=== PATIENT | female | born 1970 | race Two or more races ===

== ENCOUNTER 2018-01-28 12:45 | Emergency (ER) | payer MEDICAID ==
[~2018-01-28] VITALS: Ht 144.8 cm; Wt 70.3 kg
[2018-01-28] MEDS ORDERED: ALBUTEROL SULF 2.5 MG/0.5ML(0.5%) NEB SOLN NEB ONE (13:30)
[2018-01-28] MEDS ORDERED: IPRATROPIUM BROM 0.5 MG/2.5ML INH SOL NEB ONE (13:30)
[2018-01-28 13:31] LABS: Basophils # (auto) 0 uL; Basophils % (auto) 0.3 % (0.0-2.0); Eosinophils # (auto) 0.6 uL; Eosinophils % (auto) 7.2 % (0.0-7.0); Hematocrit 49.7 % (36.0-46.0); Hemoglobin 16.5 g/dL (12.2-16.2); Lymphocytes # (auto) 1.6 uL; Lymphocytes % (auto) 20.1 % (10.0-50.0); Mean Corpuscular Hemoglobin 30.2 pg (28.0-32.0); Mean Corpuscular Hgb Conc. 33.2 g/dL (32.0-36.0); Monocytes # (auto) 0.7 uL; Monocytes % (auto) 8.4 % (0.0-12.0); Neutrophils # (auto) 4.9 uL; Nucleated Red Blood Cells % 0.1 %; Platelet Count (auto) 309 10^3/uL (140-450); Red Blood Cells 5.47 10^6/uL (4.0-5.20); Red Cell Distribution Width 13.5 % (11.8-14.3); White Blood Cell 7.7 10^3/uL (4.4-10.8)
[2018-01-28 13:42] LABS: Urine Bacteria NONE SEEN /hpf (None Seen); Urine Blood TRACE /uL (Negative); Urine Mucus FEW (None Seen); Urine Specific Gravity 1.025 (1.001-1.035); Urine WBC 1 /hpf (0 - 5)
[2018-01-28 14:07] LABS: Albumin 3.6 g/dL (3.4-5.0); Anion Gap 5 (5-15); BUN/Creatinine Ratio 26.3; Blood Urea Nitrogen 21 mg/dL (7-18); Calcium 8.3 mg/dL (8.5-10.1); Carbon Dioxide 26 mmol/L (21-32); Chloride 107 mmol/L (98-107); GFR African American 99 mL/min; GFR Non-African American 82 mL/min; Glucose 91 mg/dL (74-106); Potassium 4.4 mmol/L (3.5-5.1); Sodium 138 mmol/L (136-145)
[2018-01-28 14:12] LABS: Alanine Aminotransferase 28 U/L (13-56); Alkaline Phosphatase 49 U/L (45-117); Aspartate Aminotransferase 27 U/L (15-37); Bilirubin, Total 0.4 mg/dL (0.2-1.0); Total Protein 8.2 g/dL (6.4-8.2)
[2018-01-28 16:12] VITALS: BP 146/94
== END 2018-01-28 16:20 | disposition home or self-care (01) ==
LOC: ER 12:45
DX: J45.909 Unspecified asthma, uncomplicated (principal); I27.20 Pulmonary hypertension, unspecified; M06.9 Rheumatoid arthritis, unspecified
CPT/HCPCS: 36415; 71046; 80053; 81001; 84484; 85025; 93005; 94640; 94761; 99285; J7611; J7644

== ENCOUNTER 2018-02-20 10:40 | Emergency (ER) | payer MEDICAID ==
[~2018-02-20] VITALS: Ht 144.8 cm; Wt 68.0 kg
[2018-02-20] MEDS ORDERED: IPRATROPIUM BROM 0.5 MG/2.5ML INH SOL NEB ONE (11:00)
[2018-02-20] MEDS ORDERED: ALBUTEROL SULF 2.5 MG/0.5ML(0.5%) NEB SOLN NEB ONE ×2 (11:00→16:30)
[2018-02-20 11:27] LABS: Basophils # (auto) 0 uL; Basophils % (auto) 0.6 % (0.0-2.0); Eosinophils # (auto) 0.6 uL; Eosinophils % (auto) 8.9 % (0.0-7.0); Hematocrit 47.1 % (36.0-46.0); Hemoglobin 15.5 g/dL (12.2-16.2); Lymphocytes % (auto) 15.9 % (10.0-50.0); Mean Corpuscular Hemoglobin 29.5 pg (28.0-32.0); Mean Corpuscular Hgb Conc. 32.8 g/dL (32.0-36.0); Mean Corpuscular Volume 89.7 fL (80.0-100.0); Monocytes # (auto) 0.6 uL; Monocytes % (auto) 9.1 % (0.0-12.0); Neutrophils # (auto) 4.1 uL; Neutrophils % (auto) 65.5 % (37.0-80.0); Nucleated Red Blood Cells % 0.1 %; Platelet Count (auto) 220 10^3/uL (140-450); Red Blood Cells 5.25 10^6/uL (4.0-5.20); Red Cell Distribution Width 13.4 % (11.8-14.3); White Blood Cell 6.3 10^3/uL (4.4-10.8)
[2018-02-20 11:46] LABS: Alanine Aminotransferase 29 U/L (13-56); Albumin 3.6 g/dL (3.4-5.0); Anion Gap 5 (5-15); Aspartate Aminotransferase 19 U/L (15-37); Blood Urea Nitrogen 13 mg/dL (7-18); Calcium 8.6 mg/dL (8.5-10.1); Carbon Dioxide 24 mmol/L (21-32); Chloride 107 mmol/L (98-107); Glucose 96 mg/dL (74-106); Potassium 4.3 mmol/L (3.5-5.1); Sodium 136 mmol/L (136-145)
[2018-02-20 11:51] LABS: Alkaline Phosphatase 42 U/L (45-117); Bilirubin, Total 0.7 mg/dL (0.2-1.0); GFR African American 126 mL/min; GFR Non-African American 104 mL/min; Total Protein 7.5 g/dL (6.4-8.2)
[2018-02-20 11:55] LABS: Urine Bacteria FEW /hpf (None Seen); Urine Blood Negative /uL (Negative); Urine Specific Gravity 1.012 (1.001-1.035); Urine WBC 1 /hpf (0 - 5)
[2018-02-20] MEDS ORDERED: methylPREDNISolone SOD SUCC 125 MG/2 ML VL IV ONE (16:30)
[2018-02-20] MEDS ORDERED: LEVOFLOXACIN 500MG 100 ML IV ONE (16:30)
[2018-02-20 17:45] VITALS: BP 130/69
== END 2018-02-20 18:15 | disposition home or self-care (01) ==
LOC: ER 10:40
DX: I27.20 Pulmonary hypertension, unspecified (principal); M19.90 Unspecified osteoarthritis, unspecified site
CPT/HCPCS: 36415; 71045; 80053; 81001; 84484; 85025; 94640; 96365; 96366; 96375; 99284; J1956; J2930; J7611; J7644

== ENCOUNTER 2018-04-30 10:05 | Emergency (ER) | payer MEDICAID ==
[~2018-04-30] VITALS: Ht 144.8 cm; Wt 68.9 kg
[2018-04-30 10:17] VITALS: BP 146/78
[2018-04-30 11:47] LABS: Basophils # (auto) 0 uL; Basophils % (auto) 0.4 % (0.0-2.0); Eosinophils # (auto) 0.5 uL; Eosinophils % (auto) 5.3 % (0.0-7.0); Hematocrit 47.4 % (36.0-46.0); Hemoglobin 15.7 g/dL (12.2-16.2); Lymphocytes # (auto) 1.3 uL; Lymphocytes % (auto) 13.8 % (10.0-50.0); Mean Corpuscular Hemoglobin 29.9 pg (28.0-32.0); Mean Corpuscular Hgb Conc. 33.2 g/dL (32.0-36.0); Monocytes # (auto) 0.7 uL; Monocytes % (auto) 7.9 % (0.0-12.0); Neutrophils # (auto) 6.6 uL; Neutrophils % (auto) 72.6 % (37.0-80.0); Nucleated Red Blood Cells % 0.1 %; Platelet Count (auto) 226 10^3/uL (140-450); Red Blood Cells 5.27 10^6/uL (4.0-5.20); Red Cell Distribution Width 13.9 % (11.8-14.3)
[2018-04-30 12:12] LABS: Chloride 106 mmol/L (98-107); Potassium 3.8 mmol/L (3.5-5.1); Sodium 138 mmol/L (136-145)
[2018-04-30 12:21] LABS: Alanine Aminotransferase 44 U/L (13-56); Alkaline Phosphatase 43 U/L (45-117); Anion Gap 6 (5-15); Aspartate Aminotransferase 25 U/L (15-37); BUN/Creatinine Ratio 15.4; Bilirubin, Total 0.9 mg/dL (0.2-1.0); Blood Urea Nitrogen 12 mg/dL (7-18); Calcium 9.2 mg/dL (8.5-10.1); Carbon Dioxide 26 mmol/L (21-32); GFR African American 101 mL/min; GFR Non-African American 84 mL/min; Glucose 96 mg/dL (74-106)
== END 2018-04-30 21:00 | disposition home or self-care (01) ==
LOC: ER 10:05
DX: R07.89 Other chest pain (principal); R20.0 Anesthesia of skin; M19.90 Unspecified osteoarthritis, unspecified site; I10 Essential (primary) hypertension; Z88.8 Allergy status to other drugs, medicaments and biological substances
CPT/HCPCS: 36415; 71046; 80053; 84484; 85025; 93005

== ENCOUNTER 2022-04-02 12:27 | Inpatient (IN) | payer MEDICAID ==
[~2022-04-02] VITALS: Ht 144.8 cm; Wt 56.9 kg
[2022-04-02] MEDS ORDERED: ASPirin 325 MG TAB PO ONE (13:00)
[2022-04-02 13:09] LABS: Basophils # (auto) 0 10 ^3/uL (0-0.2); Basophils % (auto) 0.4 % (0.0-2.0); Eosinophils # (auto) 0.1 10 ^3/uL (0-0.8); Eosinophils % (auto) 2.5 % (0.0-7.0); Hematocrit 48.5 % (36.0-46.0); Hemoglobin 15.6 g/dL (12.2-16.2); Lymphocytes # (auto) 1.2 10 ^3/uL (0.4-5.4); Lymphocytes % (auto) 20.1 % (10.0-50.0); Mean Corpuscular Hemoglobin 30.2 pg (28.0-32.0); Mean Corpuscular Hgb Conc. 32.1 g/dL (32.0-36.0); Monocytes # (auto) 0.7 10 ^3/uL (0-1.3); Monocytes % (auto) 11.8 % (0.0-12.0); Neutrophils # (auto) 3.9 10 ^3/uL (1.6-8.6); Neutrophils % (auto) 65.2 % (37.0-80.0); Nucleated Red Blood Cells % 0.2 %; Red Blood Cells 5.16 10^6/uL (4.0-5.20); Red Cell Distribution Width 14.7 % (11.8-14.3); White Blood Cell 5.9 10^3/uL (4.4-10.8)
[2022-04-02 13:16] LABS: Albumin 3.5 g/dL (3.4-5.0); Calcium 9.1 mg/dL (8.5-10.1); Potassium 4.6 mmol/L (3.5-5.1)
[2022-04-02 13:19] LABS: BUN/Creatinine Ratio 25.3
[2022-04-02 13:22] LABS: Total Protein 6.7 g/dL (6.4-8.2)
[2022-04-02 15:56] LABS: Urine Bacteria NONE SEEN /hpf (None Seen); Urine Blood 1+ /uL (Negative); Urine Specific Gravity 1.018 (1.001-1.035); Urine WBC 1 /hpf (0 - 5)
[2022-04-02] MEDS ORDERED: ACETAMINOPHEN 325 MG TAB PO PRN (16:15)
[2022-04-02] MEDS ORDERED: DEXTROSE (50%) 50ML SYRG IV PRN (16:15)
[2022-04-02] MEDS ORDERED: DOCUSATE SOD 100 MG CAP PO PRN (16:15)
[2022-04-02] MEDS ORDERED: MORPHINE SULFATE INJ 2 MG/ml SYRG IV PRN ×2 (16:15)
[2022-04-02] MEDS ORDERED: ONDANSETRON HCL 4 MG/2 ML VIAL IV PRN (16:15)
[2022-04-02] MEDS: InsuLIN REG 1unit/0.01ml Soln (100units/ml) SC SCH ×2 (17:00→22:53)
[2022-04-02] MEDS: ACCU-CHEK COMFORT CURVE STRIP VI SCH ×2 (17:19→22:53)
[2022-04-03] MEDS: TEMAZEPAM 15 MG CAP PO PRN ×2 (01:21→19:54)
[2022-04-03 05:04] LABS: Basophils # (auto) 0 10 ^3/uL (0-0.2); Basophils % (auto) 0.4 % (0.0-2.0); Eosinophils # (auto) 0.2 10 ^3/uL (0-0.8); Eosinophils % (auto) 3.2 % (0.0-7.0); Hematocrit 48.7 % (36.0-46.0); Hemoglobin 15.9 g/dL (12.2-16.2); Lymphocytes # (auto) 1.4 10 ^3/uL (0.4-5.4); Lymphocytes % (auto) 24.8 % (10.0-50.0); Mean Corpuscular Hemoglobin 30.4 pg (28.0-32.0); Mean Corpuscular Hgb Conc. 32.6 g/dL (32.0-36.0); Mean Corpuscular Volume 93.2 fL (80.0-100.0); Monocytes # (auto) 0.7 10 ^3/uL (0-1.3); Monocytes % (auto) 11.9 % (0.0-12.0); Neutrophils # (auto) 3.3 10 ^3/uL (1.6-8.6); Neutrophils % (auto) 59.7 % (37.0-80.0); Red Blood Cells 5.23 10^6/uL (4.0-5.20); Red Cell Distribution Width 14.7 % (11.8-14.3); White Blood Cell 5.6 10^3/uL (4.4-10.8)
[2022-04-03 05:18] LABS: Albumin 3.2 g/dL (3.4-5.0); Calcium 9.1 mg/dL (8.5-10.1); Potassium 4.4 mmol/L (3.5-5.1)
[2022-04-03 05:23] LABS: Bilirubin, Total 1.3 mg/dL (0.2-1.0); Total Protein 5.9 g/dL (6.4-8.2)
[2022-04-03] MEDS: InsuLIN REG 1unit/0.01ml Soln (100units/ml) SC SCH ×4 (06:56→22:00)
[2022-04-03] MEDS: ACCU-CHEK COMFORT CURVE STRIP VI SCH ×4 (07:05→22:36)
[2022-04-03] MEDS ORDERED: ENOXAPARIN SOD 40 MG/0.4 ML SYRINGE SC SCH (10:00)
[2022-04-03] MEDS: ENOXAPARIN SOD 60 MG/0.6 ML SYRINGE SC SCH ×2 (10:19→22:37)
[2022-04-03] MEDS: ASPirin 81 mg TAB PO SCH (10:19)
[2022-04-03] MEDS: PANTOPRAZOLE 40 MG TAB PO SCH (10:19)
[2022-04-03 12:44] LABS: Alcohol, Urine < 3.0 mg/dL (0-10); Amphetamine Screen, Urine NEGATIVE (NEGATIVE); Benzodiazephine Screen, Urine NEGATIVE (NEGATIVE); Cannabinoid Screen, Urine NEGATIVE (NEGATIVE); Cocaine Screen, Urine NEGATIVE (NEGATIVE); Opiate Scree,Urine NEGATIVE (NEGATIVE); Phencyclidine Screen, Urine NEGATIVE (NEGATIVE)
[2022-04-03 12:50] LABS: Barbiturate Scree,Urine NEGATIVE (NEGATIVE)
[2022-04-03] MEDS: SILDENAFIL CITRATE 20 MG TAB PO SCH ×2 (14:04→19:54)
[2022-04-03] MEDS ORDERED: HYDR-3682 PO (22:56)
[2022-04-03] MEDS ORDERED: SILD20TA2 PO (22:56)
[2022-04-03] MEDS ORDERED: APIX2.5T PO (22:56)
[2022-04-03] MEDS ORDERED: METF-869 PO (22:56)
[2022-04-03] MEDS ORDERED: DIGO0.12 PO (22:56)
[2022-04-03] MEDS ORDERED: SPIR25TA8 PO (22:56)
[2022-04-03 23:37] VITALS: BP 108/68
[2022-04-04 05:09] VITALS: BP 131/91
[2022-04-04] MEDS: InsuLIN REG 1unit/0.01ml Soln (100units/ml) SC SCH ×4 (06:10→22:00)
[2022-04-04] MEDS: ACCU-CHEK COMFORT CURVE STRIP VI SCH ×4 (06:10→22:00)
[2022-04-04 08:00] VITALS: BP 131/91
[2022-04-04] MEDS: SILDENAFIL CITRATE 20 MG TAB PO SCH ×3 (08:23→21:11)
[2022-04-04] MEDS: ENOXAPARIN SOD 60 MG/0.6 ML SYRINGE SC SCH ×2 (10:00→22:58)
[2022-04-04] MEDS: PANTOPRAZOLE 40 MG TAB PO SCH (10:21)
[2022-04-04] MEDS: ASPirin 81 mg TAB PO SCH (10:21)
[2022-04-04] MEDS: HYDROcodone-ACET 5/325MG TAB PO PRN (10:25)
[2022-04-04 13:00] VITALS: BP 146/87
[2022-04-04 16:14] VITALS: BP 128/80
[2022-04-04 20:00] VITALS: BP 133/80
[2022-04-04 22:00] VITALS: BP 133/80
[2022-04-04] MEDS: TEMAZEPAM 15 MG CAP PO PRN (22:57)
[2022-04-04] MEDS: hydrOXYzine 25 MG TAB or CAP PO SCH (22:57)
[2022-04-05] VITALS (11 sets, daily range): BP systolic 120–142; BP diastolic 66–94
[2022-04-05] MEDS: ACCU-CHEK COMFORT CURVE STRIP VI SCH ×4 (06:26→21:46)
[2022-04-05] MEDS: InsuLIN REG 1unit/0.01ml Soln (100units/ml) SC SCH ×4 (06:26→21:46)
[2022-04-05] MEDS: SILDENAFIL CITRATE 20 MG TAB PO SCH ×3 (08:00→21:40)
[2022-04-05 08:16] LABS: INR 1.24 (0.9-1.15); Partial Thromboplastin Time 31.5 sec (24.6-33.4)
[2022-04-05 08:23] LABS: Calcium 9.4 mg/dL (8.5-10.1); Potassium 4.3 mmol/L (3.5-5.1)
[2022-04-05 08:26] LABS: Albumin 3.3 g/dL (3.4-5.0); BUN/Creatinine Ratio 24.1
[2022-04-05 08:29] LABS: Total Protein 6.7 g/dL (6.4-8.2)
[2022-04-05] MEDS ORDERED: fentaNYL CITRATE 100 MCG/2 ML VL ONE (08:57)
[2022-04-05] MEDS ORDERED: ANGIOMAX 250 MG VIAL IV ONE (08:57)
[2022-04-05] MEDS ORDERED: SODIUM CHL 0.9% 0 ML ONE (08:58)
[2022-04-05] MEDS ORDERED: MIDAZOLAM HCL 2MG/2ML 2ml VIAL (1mg/ml) ONE (08:58)
[2022-04-05] MEDS ORDERED: VERAPAMIL 2.5MG/ML INJ 2ML VIAL IV ONE ×2 (09:00→09:26)
[2022-04-05] MEDS ORDERED: HEPARIN SODIUM (PORCINE) 5000 UNITS/ML 1ML VIAL ONE (09:01)
[2022-04-05] MEDS ORDERED: LIDOCAINE 2%HCL (LOCAL ANESTH.) INJ 20ML MDV ONE (09:02)
[2022-04-05] MEDS ORDERED: IODIXANOL 320MG/ML 100ML BTL IV ONE (09:03)
[2022-04-05] MEDS: ENOXAPARIN SOD 60 MG/0.6 ML SYRINGE SC SCH ×2 (10:00→21:43)
[2022-04-05] MEDS: PANTOPRAZOLE 40 MG TAB PO SCH (10:00)
[2022-04-05] MEDS: ASPirin 81 mg TAB PO SCH (10:00)
[2022-04-05] MEDS: HYDROcodone-ACET 5/325MG TAB PO PRN (17:57)
[2022-04-05] MEDS: hydrOXYzine 25 MG TAB or CAP PO SCH (21:40)
[2022-04-06 05:00] VITALS: BP 127/81
[2022-04-06] MEDS: ACCU-CHEK COMFORT CURVE STRIP VI SCH ×3 (06:00→17:50)
[2022-04-06] MEDS: InsuLIN REG 1unit/0.01ml Soln (100units/ml) SC SCH ×3 (06:00→17:00)
[2022-04-06] MEDS: HYDROcodone-ACET 5/325MG TAB PO PRN (06:05)
[2022-04-06 08:00] VITALS: BP 121/83
[2022-04-06] MEDS: SILDENAFIL CITRATE 20 MG TAB PO SCH ×2 (08:26→14:14)
[2022-04-06] MEDS: PANTOPRAZOLE 40 MG TAB PO SCH (08:27)
[2022-04-06] MEDS: ASPirin 81 mg TAB PO SCH (08:27)
[2022-04-06] MEDS: ENOXAPARIN SOD 60 MG/0.6 ML SYRINGE SC SCH (08:28)
[2022-04-06 12:00] VITALS: BP 123/79
[2022-04-06] MEDS ORDERED: SILD20TA PO (15:30)
[2022-04-06 16:00] VITALS: BP 113/81
== END 2022-04-06 18:20 | disposition home or self-care (01) | DRG 192 ==
LOC: ER 12:27 → TELE-CENTR 16:04 → TELE 21:18 → TELE-CENTR 04-03 22:10
PROVIDERS: ADMIT Nurse Practitioner; ATTEND Nurse Practitioner
PROC: 4A023N8 Measurement of Cardiac Sampling and Pressure, Bilateral, Percutaneous Approach (ICD-10-PCS; principal; 2022-04-05)
PROC: B211YZZ Fluoroscopy of Multiple Coronary Arteries using Other Contrast (ICD-10-PCS; 2022-04-05)
PROC: B215YZZ Fluoroscopy of Left Heart using Other Contrast (ICD-10-PCS; 2022-04-05)
DX: R07.89 Other chest pain (principal); I27.20 Pulmonary hypertension, unspecified; E11.9 Type 2 diabetes mellitus without complications; I10 Essential (primary) hypertension; F15.10 Other stimulant abuse, uncomplicated; M06.9 Rheumatoid arthritis, unspecified; Z20.822 Contact with and (suspected) exposure to COVID-19; J98.11 Atelectasis; Z87.891 Personal history of nicotine dependence; Z91.14 Patient's other noncompliance with medication regimen; Z88.8 Allergy status to other drugs, medicaments and biological substances
CPT/HCPCS: 36415; 71045; 78582; 80053; 80061; 80307; 81001; 82962; 83036; 84484; 85025; 85379; 85610; 85730; 86850; 86900; 86901; 87081; 87426; 93005; 93306; 93460; 93970; 99152; 99153; C1751; G0378; J1815; J2250; Q9967

== ENCOUNTER 2022-05-03 17:30 | Emergency (ER) | payer MEDICAID ==
[~2022-05-03] VITALS: Ht 144.8 cm; Wt 58.2 kg
[~2022-05-03 17:30] MED LIST: APIX2.5T PO; METF-869 PO; SILD20TA PO; SPIR25TA8 PO
[2022-05-03] MEDS ORDERED: ACE3T PO (19:52)
[2022-05-03] MEDS ORDERED: DexAMETHasone SOD PHOS 10MG/1ML VIAL INJ IM ONE (20:00)
[2022-05-03] MEDS ORDERED: diphenhdrAMINE HCL 50 MG/1 ML VL IM ONE (20:00)
[2022-05-03 21:04] VITALS: BP 128/66
== END 2022-05-03 21:06 | disposition home or self-care (01) ==
LOC: ER 17:30
DX: T50.995A Adverse effect of other drugs, medicaments and biological substances, initial encounter (principal); Z88.8 Allergy status to other drugs, medicaments and biological substances; Z79.899 Other long term (current) drug therapy; Y92.89 Other specified places as the place of occurrence of the external cause
CPT/HCPCS: 96372; 99284; J1100; J1200

== ENCOUNTER 2023-05-10 17:28 | Emergency (ER) | payer MEDICAID ==
[~2023-05-10] VITALS: Ht 144.8 cm; Wt 58.8 kg
[~2023-05-10 17:28] MED LIST changes: +ACE3T PO; +CEPH500C PO; +METH4PAK PO; +TRIA0.02 TOP
[2023-05-10] MEDS: IPRATROPIUM BROM 0.5 MG/2.5ML INH SOL HHN ONE (18:33)
[2023-05-10] MEDS: ALBUTEROL SULF 2.5 MG/0.5ML(0.5%) NEB SOLN HHN ONE (18:33)
[2023-05-10 19:19] LABS: Basophils # (auto) 0 10 ^3/uL (0-0.2); Basophils % (auto) 0.2 % (0.0-2.0); Eosinophils # (auto) 0.1 10 ^3/uL (0-0.8); Eosinophils % (auto) 1.9 % (0.0-7.0); Hematocrit 50.8 % (36.0-46.0); Hemoglobin 16.9 g/dL (12.2-16.2); Lymphocytes # (auto) 2.3 10 ^3/uL (0.4-5.4); Lymphocytes % (auto) 29.7 % (10.0-50.0); Mean Corpuscular Hemoglobin 31.7 pg (28.0-32.0); Mean Corpuscular Hgb Conc. 33.2 g/dL (32.0-36.0); Mean Corpuscular Volume 95.6 fL (80.0-100.0); Monocytes # (auto) 0.8 10 ^3/uL (0-1.3); Monocytes % (auto) 10.3 % (0.0-12.0); Neutrophils # (auto) 4.4 10 ^3/uL (1.6-8.6); Neutrophils % (auto) 57.9 % (37.0-80.0); Nucleated Red Blood Cells % 0.2 %; Red Blood Cells 5.32 10^6/uL (4.0-5.20); Red Cell Distribution Width 14.8 % (11.8-14.3); White Blood Cell 7.6 10^3/uL (4.4-10.8)
[2023-05-10 19:39] LABS: Alanine Aminotransferase 34 U/L (7-40); Albumin 4.6 g/dL (3.2-4.8); Alkaline Phosphatase 57 U/L (46-116); Anion Gap 10 (5-15); Aspartate Aminotransferase 38 U/L (13-40); BUN/Creatinine Ratio 27.8 (10.0-20.0); Bilirubin, Total 0.8 mg/dL (0.2-1.0); Blood Urea Nitrogen 27 mg/dL (9-23); Calcium 9.1 mg/dL (8.7-10.4); Carbon Dioxide 20 mmol/L (20-30); Chloride 108 mmol/L (98-107); Glucose 93 mg/dL (74-106); Magnesium 1.8 mg/dL (1.6-2.6); Potassium 4.9 mmol/L (3.5-5.1); Sodium 138 mmol/L (136-145); Total Protein 7.3 g/dL (5.7-8.2)
[2023-05-10] MEDS: DexAMETHasone SOD PHOS 10MG/1ML VIAL INJ IV ONE (19:47)
[2023-05-10 19:49] VITALS: BP 165/90; PULSE 75; RESP 18; TEMP 97.9; O2SAT 94
[2023-05-10 20:50] LABS: Rapid Influenza A Negative (Negative); Rapid Influenza B Negative (Negative)
[2023-05-10 20:51] LABS: COVID19 ANTIGEN SOFIA FIA NEGATIVE (NEGATIVE)
[2023-05-10] MEDS ORDERED: LEVO500T91 PO (21:22)
[2023-05-10] MEDS ORDERED: PRED20TA2 PO (21:22)
== END 2023-05-10 21:36 | disposition home or self-care (01) ==
LOC: ER 17:28
DX: J20.9 Acute bronchitis, unspecified (principal); I27.20 Pulmonary hypertension, unspecified; E11.9 Type 2 diabetes mellitus without complications; E78.5 Hyperlipidemia, unspecified; Z88.6 Allergy status to analgesic agent; Z20.822 Contact with and (suspected) exposure to COVID-19
CPT/HCPCS: 36415; 71045; 80053; 83605; 83735; 83880; 84484; 85025; 85379; 87040; 87426; 87804; 93005; 94640; 96374; 99285; J1100; J7644

== ENCOUNTER 2023-08-20 12:00 | Inpatient (IN) | payer MEDICAID ==
[~2023-08-20] VITALS: Ht 144.8 cm; Wt 61.9 kg
[~2023-08-20 12:00] MED LIST changes: +LEVO500T91 PO; +PRED20TA2 PO
[2023-08-20] MEDS: ASPirin 81 mg TAB PO ONE (13:21)
[2023-08-20] MEDS: cloNIDine HCL 0.1 MG TAB PO ONE (13:21)
[2023-08-20 13:37] LABS: Basophils # (auto) 0 10 ^3/uL (0-0.2); Basophils % (auto) 0.3 % (0.0-2.0); Eosinophils # (auto) 0.1 10 ^3/uL (0-0.8); Eosinophils % (auto) 1.1 % (0.0-7.0); Hematocrit 51.2 % (36.0-46.0); Hemoglobin 17.1 g/dL (12.2-16.2); Lymphocytes # (auto) 1.6 10 ^3/uL (0.4-5.4); Lymphocytes % (auto) 23.3 % (10.0-50.0); Mean Corpuscular Hemoglobin 31.6 pg (28.0-32.0); Mean Corpuscular Hgb Conc. 33.3 g/dL (32.0-36.0); Monocytes # (auto) 0.7 10 ^3/uL (0-1.3); Monocytes % (auto) 10.3 % (0.0-12.0); Neutrophils # (auto) 4.5 10 ^3/uL (1.6-8.6); Nucleated Red Blood Cells % 0.4 %; Red Cell Distribution Width 14.1 % (11.8-14.3); White Blood Cell 6.9 10^3/uL (4.4-10.8)
[2023-08-20 13:48] LABS: Chloride 107 mmol/L (98-107); Potassium 4.4 mmol/L (3.5-5.1); Sodium 140 mmol/L (136-145)
[2023-08-20 13:49] LABS: Anion Gap 8 (5-15); Calcium 9.4 mg/dL (8.5-10.1); Carbon Dioxide 25 mmol/L (20-30)
[2023-08-20 13:54] LABS: BUN/Creatinine Ratio 29.9 (10.0-20.0); Blood Urea Nitrogen 26 mg/dL (9-23); Glucose 91 mg/dL (74-106)
[2023-08-20 15:34] LABS: Urine Bacteria None Seen /hpf (None Seen)
[2023-08-20 15:41] LABS: Urine Blood 2+ /uL (Negative); Urine Clarity Clear (Clear); Urine Color Yellow (Yellow); Urine Hyaline Cast FEW /lpf (0 - 2); Urine Mucus FEW (None Seen); Urine Protein, UAD 3+ (Negative); Urine Specific Gravity 1.028 (1.001-1.035); Urine Urobilinogen Normal (Negative); Urine WBC 1 /hpf (0 - 5); Urine pH 5.5 (5.0-9.0)
[2023-08-20] MEDS ORDERED: ACETAMINOPHEN 325 MG TAB PO PRN (16:45)
[2023-08-20] MEDS ORDERED: MORPHINE SULFATE INJ 2 MG/ml SYRG IV PRN ×2 (16:45)
[2023-08-20] MEDS ORDERED: DOCUSATE SOD 100 MG CAP PO PRN (16:45)
[2023-08-20] MEDS ORDERED: ONDANSETRON HCL 4 MG/2 ML VIAL IV PRN (16:45)
[2023-08-20 17:50] VITALS: PULSE 86; RESP 18; O2SAT 95
[2023-08-20] MEDS: AZITHROMYCIN 500MG/ 250ML 250 ML IV SCH (17:51)
[2023-08-20] MEDS: ALBUTEROL SULF 2.5 MG/0.5ML(0.5%) NEB SOLN NEB PRN (17:56)
[2023-08-20 17:59] VITALS: PULSE 71; PULSE 88; RESP 17; RESP 20; O2SAT 93; O2SAT 98
[2023-08-20] MEDS ORDERED: DEXTROSE (50%) 50ML SYRG IV PRN (18:15)
[2023-08-20 18:36] VITALS: BP 151/94; PULSE 88; RESP 20; O2SAT 98
[2023-08-20] MEDS: APIXABAN 2.5 MG TAB PO SCH (21:32)
[2023-08-20] MEDS: SILDENAFIL CITRATE 20 MG TAB PO SCH (21:32)
[2023-08-20] MEDS: LISINOPRIL 20 MG TAB PO SCH (21:32)
[2023-08-20] MEDS: ACCU-CHEK COMFORT CURVE STRIP VI SCH (21:50)
[2023-08-20] MEDS: InsuLIN REG 1unit/0.01ml Soln (100units/ml) SC SCH (22:00)
[2023-08-20 22:44] VITALS: PULSE 77; RESP 17; O2SAT 95
[2023-08-21] VITALS (10 sets, daily range): BP systolic 94–126; BP diastolic 55–76; PULSE 69–94; RESP 14–18; TEMP 97.6–98.2; O2SAT 91–100
[2023-08-21] MEDS: TEMAZEPAM 15 MG CAP PO PRN (00:04)
[2023-08-21] MEDS: HYDROcodone-ACET 5/325MG TAB PO PRN (00:05)
[2023-08-21] MEDS ORDERED: DIGO0.12 PO (02:16)
[2023-08-21 05:08] LABS: Basophils # (auto) 0 10 ^3/uL (0-0.2); Basophils % (auto) 0.3 % (0.0-2.0); Eosinophils # (auto) 0.1 10 ^3/uL (0-0.8); Eosinophils % (auto) 1.6 % (0.0-7.0); Hematocrit 48.2 % (36.0-46.0); Hemoglobin 15.9 g/dL (12.2-16.2); Lymphocytes # (auto) 1.6 10 ^3/uL (0.4-5.4); Lymphocytes % (auto) 22.1 % (10.0-50.0); Mean Corpuscular Hemoglobin 31.5 pg (28.0-32.0); Mean Corpuscular Volume 95.3 fL (80.0-100.0); Monocytes # (auto) 0.8 10 ^3/uL (0-1.3); Monocytes % (auto) 10.9 % (0.0-12.0); Neutrophils # (auto) 4.8 10 ^3/uL (1.6-8.6); Neutrophils % (auto) 65.1 % (37.0-80.0); Nucleated Red Blood Cells % 0.3 %; Red Blood Cells 5.06 10^6/uL (4.0-5.20); Red Cell Distribution Width 14.2 % (11.8-14.3); White Blood Cell 7.4 10^3/uL (4.4-10.8)
[2023-08-21 05:13] LABS: Alanine Aminotransferase 14 U/L (7-40); Albumin 3.6 g/dL (3.2-4.8); Alkaline Phosphatase 31 U/L (46-116); Anion Gap 8 (5-15); Aspartate Aminotransferase 20 U/L (13-40); BUN/Creatinine Ratio 25.6 (10.0-20.0); Bilirubin, Total 1.5 mg/dL (0.2-1.0); Blood Urea Nitrogen 23 mg/dL (9-23); Calcium 9.2 mg/dL (8.7-10.4); Carbon Dioxide 22 mmol/L (20-30); Chloride 106 mmol/L (98-107); Glucose 92 mg/dL (74-106); Potassium 4.3 mmol/L (3.5-5.1); Sodium 136 mmol/L (136-145); Total Protein 6.1 g/dL (5.7-8.2)
[2023-08-21] MEDS: InsuLIN REG 1unit/0.01ml Soln (100units/ml) SC SCH (06:12)
[2023-08-21] MEDS ORDERED: ENOXAPARIN SOD 40 MG/0.4 ML SYRINGE SC SCH (10:00)
[2023-08-21] MEDS: methylPREDNISolone SOD SUCC 40 MG/ML VL IV SCH (21:55)
[2023-08-21] MEDS: SILDENAFIL CITRATE 20 MG TAB PO SCH (21:55)
[2023-08-22] VITALS (15 sets, daily range): BP systolic 94–120; BP diastolic 61–67; PULSE 67–84; RESP 14–20; TEMP 98–98.7; O2SAT 89–98
[2023-08-22] MEDS ORDERED: PROMETHAZINE W/CODEINE 5 ML ORAL SYRUP PO PRN (16:30)
[2023-08-23] VITALS (7 sets, daily range): BP systolic 111–131; BP diastolic 70–81; PULSE 73–85; RESP 16–22; TEMP 97.5–98.7; O2SAT 91–97
== END 2023-08-23 18:45 | disposition home or self-care (01) | DRG 141 ==
LOC: ER 12:02 → TELE-WESTW 16:44 → TELE 16:44 → TELE-WESTW 22:42
PROVIDERS: ADMIT Nurse Practitioner Family; ATTEND Nurse Practitioner Family
DX: J45.31 Mild persistent asthma with (acute) exacerbation (principal); I27.20 Pulmonary hypertension, unspecified; Z99.81 Dependence on supplemental oxygen; J45.901 Unspecified asthma with (acute) exacerbation; E11.65 Type 2 diabetes mellitus with hyperglycemia; I10 Essential (primary) hypertension; E78.5 Hyperlipidemia, unspecified; J98.11 Atelectasis; M06.9 Rheumatoid arthritis, unspecified; E66.9 Obesity, unspecified; I08.8 Other rheumatic multiple valve diseases; I25.10 Atherosclerotic heart disease of native coronary artery without angina pectoris; K80.20 Calculus of gallbladder without cholecystitis without obstruction; F15.10 Other stimulant abuse, uncomplicated; Z79.01 Long term (current) use of anticoagulants; Z88.8 Allergy status to other drugs, medicaments and biological substances; Z79.899 Other long term (current) drug therapy; Z79.1 Long term (current) use of non-steroidal anti-inflammatories (NSAID); Z91.199 Patient's noncompliance with other medical treatment and regimen due to unspecified reason; Z83.3 Family history of diabetes mellitus; Z68.29 Body mass index [BMI] 29.0-29.9, adult
CPT/HCPCS: 36415; 36600; 71045; 71250; 80048; 80053; 81001; 82805; 82962; 83880; 84484; 85025; 85379; 93306; 94640; G0378; J1815

== ENCOUNTER 2024-01-29 18:49 | Inpatient (IN) | payer MEDICAID ==
[~2024-01-29] VITALS: Ht 144.8 cm; Wt 60.2 kg
[~2024-01-29 18:49] MED LIST changes: +ALBU108A5 INH; +BUDE1AER4 IN; +DIGO0.12 PO; +PRED10TA PO; +TRAZ-227 PO
[2024-01-29 19:10] VITALS: RESP 22; O2SAT 92
[2024-01-29 19:21] VITALS: O2SAT 96
--- NOTE | 2024-01-29 19:21 | ED.PDOC ---
SOB-HPI HPI Comments 53 year old female came to ER due to shortness of breath. Patient does have history of hypertension, diabetes, dyslipidemia, asthma and pulmonary hypertension. She is on home oxygen at 3lpm. States for the past 3 days she has been having dizziness. chest tightness, dry cough and progressively worsening shortness of breath despite inhalers. Was saturating at 90% at 4lpm upon arrival. Chief Complaint: Shortness of Breath Time Seen by MD: 19:20 Primary Care Provider: JOANA Loza notes: Nurses Notes Information Source: Patient Mode of Arrival: Ambulatory Severity: Moderate Timing: Days Duration: Since onset Context: At Rest, With Light Exertion PE Risk Factors: None History of: Asthma, Other (PHTN) Prehospital treatment: Oxygen Modifying Factors: Nothing Associated Signs and Symptoms: Wheeze, Cough, Chest Pain Quality: Tightness Radiation: No Radiation Location: Chest (R), Chest (L) If cough with SOB: Non-Productive Past Medical History PAST MEDICAL HISTORY: Arthritis, Asthma, DM, High Lipids, HTN Past Medical History (Other): Veno Occlusive Pulmonary Hypertension Surgical History: Denies all surgeries GLASSWARE ENGRAVER 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 History Family History Family History: Reviewed,noncontributory to illness Social History Smoker: Non-Smoker Alcohol: Denies ETOH Use Drugs: Denies Drug Use Lives In: Home Constitutional: reports: fatigue; denies: chills, diaphoresis, fever, malaise, sweats, weakness, others EENTM: denies: blurred vision, double vision, ear bleeding, ear discharge, ear drainage, ear pain, ear ringing, eye pain, eye redness, hearing loss, mouth pain, mouth swelling, nasal discharge, nose bleeding, nose congestion, nose pain, photophobia, tearing, throat pain, throat swelling, voice changes, others Respiratory: reports: cough, SOB at rest, shortness of breath, SOB with excertion, wheezing; denies: hemoptysis, orthopnea, stridor, others Cardiovascular: reports: chest pain; denies: dizzy spells, diaphoresis, Dyspnea on exertion, edema, irregular heart beat, left arm pain, lightheadedness, palpitations, PND, syncope, others Gastrointestinal: denies: abdomen distended, abdominal pain, blood streaked bowels, constipated, diarrhea, dysphagia, difficulty swallowing, hematemesis, melena, nausea, poor appetite, poor fluid intake, rectal bleeding, rectal pain, vomiting, others Genitourinary: denies: abnormal vagina bleeding, burning, dyspareunia, dysuria, flank pain, frequency, hematuria, incontinence, pain, , vagina discharge, urgency, others Neurological: reports: dizziness; denies: fainting, headache, left sided num bness, left sided weakness, numbness, paresthesia, pre-existing deficit, right sided numbness, right sided weakness, seizure, speech problems, tingling, tremors, weakness, others Musculoskeletal: denies: back pain, gout, joint pain, joint swelling, muscle pain, muscle stiffness, neck pain, others Integumetry: denies: bruises, change in color, change in hair/nails, dryness, laceration, lesions, lumps, rash, wounds, others Allergic/Immunocompromised: denies: Difficulty Healing, Frequent Infections, Hives, Itching, others Hematologic/Lymphatic: denies: anemia, blood clots, easy bleeding, easy bruising, swollen glands, others Endocrine: denies: excessive hunger, excessive sweating, excessive thirst, excessive urination, flushing, intolerance to cold, intolerance to heat, unexplained weight gain, unexplained weight loss, others Psychiatric: denies: anxiety, bipolar disorder, depression, hopeless, panic disorder, schizophrenia, sleepless, suicidal, others Physical Exam General Appearance: No Apparent Distress, Normal HEENT: Normal ENT Inspection, Pharynx Normal, TMs Normal Neck: Full Range of Motion, Non-Tender, Normal, Normal Inspection Respiratory: Chest Non-Tender, Decreased Breath Sounds, No Accessory Muscle Use, Wheezing Cardiovascular: No Edema, No JVD, No Murmur, No Gallop, Normal Peripheral Pulses, Regular Rate/Rhythm Breast Exam: Deferred Gastrointestinal: No Organomegaly, Non Tender, No Pulsatile Mass, Normal Bowel Sounds, Soft Genitalia: Deferred Pelvic: Deferred Rectal: Deferred Extremities: No calf tenderness, Normal capillary refill, Normal inspection, Normal range of motion, Non-tender, No pedal edema Musculoskeletal : Apperance: Normal Neurologic: Alert, director 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 Was a procedure done?: No Differential Dx Differential Diagnosis: Asthma, Bronchitis, CHF, COPD, Pneumonia, Respiratory Distress, Pharyngitis, URI X-Ray, Labs, Meds, VS Vital Signs Date Time Temp Pulse Resp B/P (MAP) Pulse Ox O2 Delivery O2 Flow Rate FiO2 01/29/24 19:21 21 96 Nasal Cannula* 3 32 01/29/24 19:10 98.5 80 22 103/52 (69) 92 98.5 01/29/24 19:10 22 92 Nasal Cannula* 3 32 01/29/24 19:05 99.1 101 26 121/79 (93) 90 Lab Test 01/29/24 20:06 01/29/24 19:15 Range/Units Troponin I High Sensitivity 82 *H 101 *H </=34 ng/L White Blood Count 9.5 4.4-10.8 10^3/uL Red Blood Count 5.81 H 4.0-5.20 10^6/uL Hemoglobin 18.5 H 12.2-16.2 g/dL Hematocrit 55.4 H 36.0-46.0 % Mean Corpuscular Volume 95.3 80.0-100.0 fL Mean Corpuscular Hemoglobin 31.9 28.0-32.0 pg Mean Corpuscular Hemoglobin Concent 33.4 32.0-36.0 g/dL Red Cell Distribution Width 14.2 11.8-14.3 % Platelet Count 205 140-450 10^3/uL Mean Platelet Volume 8.1 6.9-10.8 fL Neutrophils (%) (Auto) 80.1 H 37.0-80.0 % Lymphocytes (%) (Auto) 7.5 L 10.0-50.0 % Monocytes (%) (Auto) 12.3 H 0.0-12.0 % Eosinophils (%) (Auto) 0.0 0.0-7.0 % Basophils (%) (Auto) 0.1 0.0-2.0 % Neutrophils # (Auto) 7.6 1.6-8.6 10 ^3/uL Lymphocytes # (Auto) 0.7 0.4-5.4 10 ^3/uL Monocytes # (Auto) 1.2 0-1.3 10 ^3/uL Eosinophils # (Auto) 0 0-0.8 10 ^3/uL Basophils # (Auto) 0 0-0.2 10 ^3/uL Nucleated Red Blood Cells 0.2 % Sodium Level 137 136-145 mmol/L Potassium Level 4.0 3.5-5.1 mmol/L Chloride Level 103 98-107 mmol/L Carbon Dioxide Level 23 20-31 mmol/L Anion Gap 11 5-15 Blood Urea Nitrogen 24 H 9-23 mg/dL Creatinine 1.15 H 0.550-1.02 mg/dL Glomerular Filtration Rate Calc 57 >90 mL/min BUN/Creatinine Ratio 20.9 H 10.0-20.0 Serum Glucose 137 H 74-106 mg/dL Calcium Level 9.9 8.7-10.4 mg/dL B-Type Natriuretic Peptide 2027.81 0-100 pg/mL Current Medications Medications (Trade) Dose Ordered Sig/Stephanie Route Start Time Stop Time Status Last Admin Albuterol (Ventolin Medneb) 5 mg ONCE ONCE NEB 01/29/24 19:15 01/29/24 19:16 DC 01/29/24 19:25 Ipratropium [place] (Atrovent Medneb) 0.5 mg ONCE ONCE NEB 01/29/24 19:15 01/29/24 19:16 DC 01/29/24 19:25 Azithromycin (Zithromax Tablet) 500 mg ONCE ONCE PO 01/29/24 19:15 01/29/24 19:16 DC 01/29/24 20:24 Methylprednisolone Sodium Succinate (Solu Medrol) 62.5 mg ONCE ONCE IV 01/29/24 19:15 01/29/24 19:16 DC 01/29/24 20:24 CHEST RADIOGRAPH Indication:sob Technique: Single frontal view of the chest was obtained Comparison: XY CHEST PORTABLE on DOS: 08/20/23, XY CHEST PORTABLE on DOS: 05/10/23, CHEST PORTABLE on DOS: 04/02/22 FINDINGS: Lines and Tubes: None Lungs: Right lower lobe airspace disease and questionable left lower lobe airspace disease. Pleura: No effusion. No pneumothorax. Cardiomediastinal contours: Unremarkable Bones: No acute osseous abnormality. IMPRESSION: 1. Right lower lobe airspace disease. 2. Questionable left lower lobe airspace disease as well. Time of 1ST Reevaluation: 19:16 Reevaluation 1ST: Unchanged Patient Education/Counseling: Diagnosis, Treatment Family Education/Counseling: No Family Present Departure 1 Departure Time of Disposition: 21:45 (Patient presented with chest pain that was concerning for possible STEMI, ACS, PE, Pneumonia, Muscle Strain, COPD, Dissection. Data: 1. I ordered and reviewed the result of at least 3 labs incl uding a CBC, BMP, and Troponin. 2. I independently interpreted the following tests: EKG which shows sinus arrhythmia and Chest X-ray which shows airspace disease.Risk:This patient has a high risk of morbidity due to further diagnostic testing or treatment and may suffer from an acute cardiac or respiratory disorder. Workup reveals COPD exacerbation versus NSTEMI. and patient should be admitted for further workup and possible expert consultation. ) Impression: Primary Impression: Acute chest pain Additional Impressions: Pulmonary hypertension Elevated troponin Disposition: ADMITTED INPATIENT Admit to: Med Surg Condition: Serious Critical Care Note Critical Care Time?: Yes (35 min-critical care time only) Critical care comment: Active chest pain Authorized and Performed by: Musa Delaney MD Total critical care time: Approximately 38 minutes Due to a high probability of clinically significant, life threatening deterioration, the patient required my highest level of preparedness to intervene emergently and I personally spent this critical care time directly and personally managing the patient. This critical care time included obtaining a history; examining the patient; pulse oximetry; ordering and review of studies; arranging urgent treatment with development of a management plan; evaluation of patient's response to treatment; frequent reassessment; and, discussions with other providers. This critical care time was performed to assess and manage the high probability of imminent, life-threatening deterioration that could result in multi-organ failure. It was exclusive of separately billable procedures and treating other patients and teaching time. Please see my other sections and the rest of the note for further information on patient assessment and treatment. Stability Stability form required: No Heart Score Heart Score: Heart Score Response (Comments) Value History Moderate Suspicious 1 EKG Normal 0 Age 45-64 1 Risk Factors >3 or Hx ASHD 2 Troponin Normal limit 0 Total 4 I personally scribed for MUSA DELANEY MD ([email or web address]) on 01/29/24 at 19:21. Electronically submitted by Loi Morataya ([facility]). I personally scribed for MUSA DELANEY MD ([email or web address]) on 01/29/24 at 20:16. Electronically submitted by Loi Morataya ([email or web address]). MUSA DELANEY MD Jan 29, 2024 19:21
[2024-01-29] MEDS: ALBUTEROL SULF 2.5 MG/0.5ML(0.5%) NEB SOLN NEB ONE (19:25)
[2024-01-29] MEDS: IPRATROPIUM BROM 0.5 MG/2.5ML INH SOL NEB ONE (19:25)
[2024-01-29 19:32] LABS: Basophils # (auto) 0 10 ^3/uL (0-0.2); Basophils % (auto) 0.1 % (0.0-2.0); Eosinophils # (auto) 0 10 ^3/uL (0-0.8); Lymphocytes # (auto) 0.7 10 ^3/uL (0.4-5.4); Mean Corpuscular Hgb Conc. 33.4 g/dL (32.0-36.0); Monocytes # (auto) 1.2 10 ^3/uL (0-1.3)
[2024-01-29 19:33] LABS: Hematocrit 55.4 % (36.0-46.0); Hemoglobin 18.5 g/dL (12.2-16.2); Lymphocytes % (auto) 7.5 % (10.0-50.0); Mean Corpuscular Hemoglobin 31.9 pg (28.0-32.0); Mean Corpuscular Volume 95.3 fL (80.0-100.0); Monocytes % (auto) 12.3 % (0.0-12.0); Neutrophils # (auto) 7.6 10 ^3/uL (1.6-8.6); Neutrophils % (auto) 80.1 % (37.0-80.0); Nucleated Red Blood Cells % 0.2 %; Platelet Count (auto) 205 10^3/uL (140-450); Red Blood Cells 5.81 10^6/uL (4.0-5.20); Red Cell Distribution Width 14.2 % (11.8-14.3); White Blood Cell 9.5 10^3/uL (4.4-10.8)
--- NOTE | 2024-01-29 19:41 | DVH ---
CHEST RADIOGRAPH Indication:sob Technique: Single frontal view of the chest was obtained Comparison: XY CHEST PORTABLE on DOS: 08/20/23, XY CHEST PORTABLE on DOS: 05/10/23, CHEST PORTABLE on DO S: 04/02/22 FINDINGS: Lines and Tubes: None Lungs: Right lower lobe airspace disease and questionable left lower lobe airspace disease. Pleura: No effusion. No pneumothorax. Cardiomediastinal contours: Unremarkable Bones: No acute osseous abnormality. IMPRESSION: 1. Right lower lobe airspace disease. 2. Questionable left lower lobe airspace disease as well.
[2024-01-29 19:48] LABS: Chloride 103 mmol/L (98-107); Sodium 137 mmol/L (136-145)
[2024-01-29 19:49] LABS: Anion Gap 11 (5-15); Calcium 9.9 mg/dL (8.7-10.4); Carbon Dioxide 23 mmol/L (20-31)
[2024-01-29 19:54] LABS: BUN/Creatinine Ratio 20.9 (10.0-20.0); Blood Urea Nitrogen 24 mg/dL (9-23); Glucose 137 mg/dL (74-106)
[2024-01-29] MEDS: AZITHROMYCIN 250 MG TAB PO ONE (20:24)
[2024-01-29] MEDS: methylPREDNISolone SOD SUCC 125 MG/2 ML VL IV ONE (20:24)
[2024-01-29] MEDS ORDERED: DEXTROSE (50%) 50ML SYRG IV PRN (22:15)
[2024-01-29] MEDS ORDERED: DOCUSATE SOD 100 MG CAP PO PRN (22:15)
[2024-01-29] MEDS ORDERED: ONDANSETRON HCL 4 MG/2 ML VIAL IV PRN (22:15)
[2024-01-29] MEDS: FUROSEMIDE 20 MG/2 ML VIAL IV ONE (22:15)
[2024-01-29] MEDS ORDERED: MORPHINE SULFATE INJ 2 MG/ml SYRG IV PRN (22:15)
--- NOTE | 2024-01-29 22:27 | DVHHP2 ---
History of Present Illness Reason for Visit: ACUTE EXACERBATION OF CONGESTIVE HEART FAILURE History of Present Illness THE PATIENT IS A 53 YEARS OLD FEMALE WITH PAST MEDICAL HISTORY OF PULMONARY HYPERTENSION, ARTHRITIS, ASTHMA, DM, HYPERLIPIDEMIA, AND HYPERTENSION WHO PRESENTED TO [facility] ED WITH COMPLAINT OF SHORTNESS OF BREATHS. PATIENT REPORTS SYMPTOMS PROGRESSIVELY GET WORSE WITH DIZZINESS, CHEST TIGHTNESS, DRY COUGH, PRESENT SHORTNESS OF BREATHS UNRELIEVED WITH MEDICATION, GETTING WORSE THAT PROMPTED THIS VISIT. PATIENT WAS SEEN AND EVALUATED IN THE ED, LABORATORY DATA SHOWS WBC 9.5, HEMOGLOBIN 18.5, HEMATOCRIT 55.4, PLATELETS 205, SODIUM 137, POTASSIUM 4.0, BUN 24, CREATININE 1.15, GLUCOSE 137, BNP 2027.81, TROPONIN 82. CHEST X-RAY REVEALING RIGHT LOWER LOBE AIRSPACE DISEASE. PATIENT WAS STARTED ON IV LASIX, PLEASE SEE MEDICATION ORDERS SECTION IN THE COMPUTER. ON MY ASSESSMENT, PATIENT DENIES CHEST PAIN, NO HEADACHE, NO DIZZINESS, CURRENTLY ON OXYGEN, NO NAUSEA, NO VOMITING, NO FEVER, NO CHILLS. PATIENT WAS ADMITTED FOR FURTHER EVALUATION AND MEDICAL MANAGEMENT. Past Medical History Arthritis, Asthma, DM, High Lipids, HTN Veno Occlusive Pulmonary Hypertension Past Surgical History Denies all surgeries Family History REVIEWED, NONCONTRIBUTORY TO THE MANAGEMENT OF THIS CASE. Past Social History THE PATIENT LIVES AT HOME, DENIES SMOKING, ALCOHOL OR ILLICIT DRUGS ABUSE. Review of Systems Constitutional: Yes: Weakness; No: Fever, Chills, Sweats, Malaise, Other Eyes: No: Pain, Vision change, Conjunctivae inflammation, Eyelid inflammation, Other, Redness ENT: No: Ear pain, Ear discharge, Nose pain, Nose discharge, Nose congestion, Mouth pain, Mouth swelling, Throat pain, Throat swelling, Other Respiratory: Cough, Shortness of breath, SOB with excertion, Wheezing, Other (SOB AT REST); No: Dry, Hemoptysis, Pleuritic Pain, Sputum, Wheezing Cardiovascular: No: Chest Pain, Palpitations, Orthopnea, Paroxysmal Noc. Dyspnea, Edema, Lt Headedness, Other Gastrointestinal: No: Nausea, Vomiting, Abdominal Pain, Diarrhea, Constipation, Melena, Hematochezia, Other Genitourinary: No Dysuria, No Frequency, No Incontinence, No Hematuria, No Retention, No Other Musculoskeletal: No: other, neck pain, shoulder pain, arm pain, back pain, hand pain, leg pain, foot pain Skin: No: Rash, Lesions, Jaundice, Bruising, Other Neurological: No: Weakness, Numbness, Incoordination, Change in speech, Confusion, Seizures, Other Allergies: Coded Allergies: Nitroglycerin (Verified Allergy, Unknown, 04/30/18) Exam Vital Signs Vital Signs Date Time Temp Pulse Resp B/P (MAP) Pulse Ox O2 Delivery O2 Flow Rate FiO2 01/29/24 19:21 21 96 Nasal Cannula* 3 32 01/29/24 19:10 98.5 80 103/52 (69) 98.5 General Appearance: Alert, Oriented X3, Cooperative, No acute distress HEENT: Atraumatic, PERRLA, EOMI, Mucous membr. moist/pink Respiratory: Normal air movement, Other (WHEEZING) Cardiovascular: Regular rate, Normal S1, Normal S2, No murmurs Abdominal: Normal bowel sounds, Soft, No tenderness, No hepatospenomegaly, No masses Extremities: No clubbing, No cyanosis, No edema, Normal pulses Skin: No rashes, No breakdown Neuro: Normal gait, Normal speech, Strength at 5/5 X4 ext, Normal tone, Sensation intact, Cranial nerves 3-12 NL, Reflexes 2+ Psych/Mental Status: Mental status NL Labs/Xrays Labs Test 01/29/24 22:18 01/29/24 19:15 Range/Units White Blood Count 9.5 4.4-10.8 10^3/uL Red Blood Count 5.81 H 4.0-5.20 10^6/uL Hemoglobin 18.5 H 12.2-16.2 g/dL Hematocrit 55.4 H 36.0-46.0 % Mean Corpuscular Volume 95.3 80.0-100.0 fL Mean Corpuscular Hemoglobin 31.9 28.0-32.0 pg Mean Corpuscular Hemoglobin Concent 33.4 32.0-36.0 g/dL Red Cell Distribution Width 14.2 11.8-14.3 % Platelet Count 205 140-450 10^3/uL Mean Platelet Volume 8.1 6.9-10.8 fL Neutrophils (%) (Auto) 80.1 H 37.0-80.0 % Lymphocytes (%) (Auto) 7.5 L 10.0-50.0 % Monocytes (%) (Auto) 12.3 H 0.0-12.0 % Eosinophils (%) (Auto) 0.0 0.0-7.0 % Basophils (%) (Auto) 0.1 0.0-2.0 % Neutrophils # (Auto) 7.6 1.6-8.6 10 ^3/uL Lymphocytes # (Auto) 0.7 0.4-5.4 10 ^3/uL Monocytes # (Auto) 1.2 0-1.3 10 ^3/uL Eosinophils # (Auto) 0 0-0.8 10 ^3/uL Basophils # (Auto) 0 0-0.2 10 ^3/uL Nucleated Red Blood Cells 0.2 % Sodium Level 137 136-145 mmol/L Potassium Level 4.0 3.5-5.1 mmol/L Chloride Level 103 98-107 mmol/L Carbon Dioxide Level 23 20-31 mmol/L Anion Gap 11 5-15 Blood Urea Nitrogen 24 H 9-23 mg/dL Creatinine 1.15 H 0.550-1.02 mg/dL Glomerular Filtration Rate Calc 57 >90 mL/min BUN/Creatinine Ratio 20.9 H 10.0-20.0 Serum Glucose 137 H 74-106 mg/dL Calcium Level 9.9 8.7-10.4 mg/dL B-Type Natriuretic Peptide 2027.81 0-100 pg/mL PATIENT: AKIKO VIDAL ACCT: [id number] UNIT: [id number] : 1970 LOC: ER ROOM / BED: / AGE / SEX: 53 / F ADM STATUS: REG ER SERVICE 06 ORDERING PHYSICIAN: MUSA DELANEY MD PROCEDURE(s): CXRP - CHEST PORTABLE REASON: sob ORDER NUMBER(s): [id number], ACCESSION NUMBER(s): [id number] CHEST RADIOGRAPH Indication:sob Technique: Single frontal view of the chest was obtained Comparison: XY CHEST PORTABLE on DOS: 08/20/23, XY CHEST PORTABLE on DOS: 05/10/23, CHEST PORTABLE on DOS: 04/02/22 FINDINGS: Lines and Tubes: None Lungs: Right lower lobe airspace disease and questionable left lower lobe airspace disease. Pleura: No effusion. No pneumothorax. Cardiomediastinal contours: Unremarkable Bones: No acute osseous abnormality. IMPRESSION: 1. Right lower lobe airspace disease. 2. Questionable left lower lobe airspace disease as well. Assessment/Plan Assessment/Plan COPD WITH ACUTE EXACERBATION GENERALIZED WEAKNESS PNEUMONIA, UNSPECIFIED ORGANISM ELEVATED TROPONIN PULMONARY HYPERTENSION ACUTE EXACERBATION OF CONGESTIVE HEART FAILURE PLAN 1. ADMIT TO TELEMETRY UNIT 2. BREATHING TREATMENT 3. PAIN CONTROL MANAGEMENT 4. IV ANTIBIOTIC MANAGEMENT 5. MANAGEMENT OF FLUIDS AND ELECTROLYTES 6. CONSULTATION FOR CARDIOLOGY 7. DIAGNOSTIC TEST CHEST X-RAY 8. DVT PROPHYLAXIS-ON ELIQUIS 9. REPEAT LABS CBC, CMP IN A.M. 10. HOME MEDICATION REVIEWED AND RECONCILED 11. CONTINUE WITH CURRENT MEDICAL MANAGEMENT 12. TREATMENT PLAN DISCUSSED WITH PATIENT AND RN. PATIENT VERBALIZED UNDERSTANDING. Plan discussed with: Patient, Other (RN) Problem List: (1) COPD with acute exacerbation (2) Generalized weakness (3) Elevated troponin (4) Acute exacerbation of congestive heart failure (5) Pulmonary hypertension (6) Pneumonia, unspecified organism Date of Service: Jan 29, 2024 Billing Provider: FELICIANO CLARK DNP Common Visit Codes: [id number] INP/OBS CARE (HIGH) FELICIANO CLARK DNP Jan 29, 2024 22:27
[2024-01-29 22:40] VITALS: BP 103/52; PULSE 91; RESP 18; O2SAT 96
[2024-01-29] MEDS: HYDROcodone-ACET 5/325MG TAB PO PRN (23:18)
[2024-01-29 23:38] LABS: COVID19 ANTIGEN SOFIA FIA NEGATIVE (NEGATIVE); Rapid Influenza B Negative (Negative)
[2024-01-29 23:40] LABS: Rapid Influenza A Positive (Negative)
[2024-01-30] VITALS (10 sets, daily range): PULSE 73–84; RESP 19–27; O2SAT 93–98
[2024-01-30] MEDS: ACETAMINOPHEN 325 MG TAB PO PRN (01:54)
[2024-01-30 06:32] LABS: Basophils # (auto) 0 10 ^3/uL (0-0.2); Eosinophils # (auto) 0 10 ^3/uL (0-0.8); Monocytes % (auto) 3.8 % (0.0-12.0); Nucleated Red Blood Cells % 0.1 %
[2024-01-30 06:37] LABS: Hematocrit 52.2 % (36.0-46.0); Hemoglobin 17.5 g/dL (12.2-16.2); Lymphocytes # (auto) 0.3 10 ^3/uL (0.4-5.4); Mean Corpuscular Hemoglobin 32.1 pg (28.0-32.0); Mean Corpuscular Hgb Conc. 33.5 g/dL (32.0-36.0); Mean Corpuscular Volume 95.8 fL (80.0-100.0); Monocytes # (auto) 0.2 10 ^3/uL (0-1.3); Neutrophils % (auto) 91.2 % (37.0-80.0); Platelet Count (auto) 193 10^3/uL (140-450); Red Blood Cells 5.45 10^6/uL (4.0-5.20); White Blood Cell 6.5 10^3/uL (4.4-10.8)
[2024-01-30 06:44] LABS: Alanine Aminotransferase 15 U/L (7-40); Albumin 4.3 g/dL (3.2-4.8); Alkaline Phosphatase 45 U/L (46-116); Anion Gap 10 (5-15); Aspartate Aminotransferase 21 U/L (13-40); BUN/Creatinine Ratio 23.6 (10.0-20.0); Bilirubin, Total 0.8 mg/dL (0.2-1.0); Blood Urea Nitrogen 25 mg/dL (9-23); Calcium 9.5 mg/dL (8.7-10.4); Carbon Dioxide 24 mmol/L (20-31); Chloride 102 mmol/L (98-107); Glucose 200 mg/dL (74-106); Potassium 4.6 mmol/L (3.5-5.1); Sodium 136 mmol/L (136-145); Total Protein 7.1 g/dL (5.7-8.2)
[2024-01-30] MEDS: InsuLIN REG 1unit/0.01ml Soln (100units/ml) SC SCH (07:00)
[2024-01-30] MEDS: ACCU-CHEK COMFORT CURVE STRIP VI SCH (07:00)
[2024-01-30] MEDS: SODIUM CHLOR 0.9% PF (SALINE LOCK) 10ML VIAL/SYR IV SCH (07:00)
[2024-01-30] MEDS: methylPREDNISolone SOD SUCC 40 MG/ML VL IV SCH (07:03)
[2024-01-30] MEDS: IPRATROPIUM BROM 0.5 MG/2.5ML INH SOL NEB PRN (07:36)
[2024-01-30] MEDS: ALBUTEROL SULF 2.5 MG/0.5ML(0.5%) NEB SOLN NEB PRN (07:36)
[2024-01-30] MEDS ORDERED: APIXABAN 2.5 MG TAB PO SCH (10:00)
[2024-01-30] MEDS: CARVEDILOL 3.125 MG TAB PO SCH (10:52)
[2024-01-30] MEDS: APIXABAN 5 MG TAB PO SCH (10:52)
[2024-01-30] MEDS: FUROSEMIDE 20 MG/2 ML VIAL IV SCH (10:53)
[2024-01-30] MEDS: FAMOTIDINE (10MG/ML) 2ML VL IV SCH (10:53)
--- NOTE | 2024-01-30 16:17 | DVHPN2 ---
Subjective Patient continues to report having shortness of breath, chest pain Reviewed: Care Plan, H&P, Labs, Medications Changes from previous H/P or p: No Changes General: Per HPI Eyes: No Pain, No Vision change, No Conjunctivae inflammation, No Eyelid inflammation, No Other, No Redness ENT: No Ear pain, No Ear discharge, No Nose pain, No Nose discharge, No Nose congestion, No Mouth pain, No Mouth swelling, No Throat pain, No Throat swelling, No Other Cardiovascular: No Chest Pain, No Palpitations, No Orthopnea, No Paroxysmal Noc. Dyspnea, No Edema, No Lt Headedness, No Other Respiratory: Cough; No Dry; Shortness of breath, SOB with excertion, Wheezing; No Hemoptysis, No Pleuritic Pain, No Sputum; Other (SOB AT REST) Gastrointestinal: No Nausea, No Vomiting, No Abdominal Pain, No Diarrhea, No Constipation, No Melena, No Hematochezia, No Other Genitourinary: No Dysuria, No Frequency, No Incontinence, No Hematuria, No Retention, No Other Musculoskeletal: No other, No neck pain, No shoulder pain, No arm pain, No back pain, No hand pain, No leg pain, No foot pain Skin: No Rash, No Lesions, No Jaundice, No Bruising, No Other Objective Vitals Vital Signs Date Time Temp Pulse Resp B/P (MAP) Pulse Ox O2 Delivery O2 Flow Rate FiO2 01/30/24 14:09 73 20 93 01/30/24 14:08 Nasal Cannula 4.0 01/30/24 14:08 36 01/30/24 14:00 128/75 (92) 01/30/24 02:54 98.9 General Appearance: Alert, Oriented X3, Cooperative, mild distress HEENT: Atraumatic, PERRLA Lungs: Other (Patient continues to have expiratory wheeze) Cardiovascular: Normal S1, Normal S2 Abdomen: Normal bowel sounds Musculoskeletal: Normal sensory function, Normal motor function Neuro: Normal gait, Normal speech Psych/Mental Status: Mental status NL, Mood NL Medications Current Medications Medications Dose Ordered Sig/Stephanie Route Start Time Stop Time Status Last Admin Dose Admin Famotidine 20 mg Q12HR IV 01/30/24 10:00 01/30/24 10:53 20 MG Methylprednisolone Sodium Succinate 40 mg Q8HR IV 01/30/24 06:00 01/30/24 14:20 40 MG Furosemide 20 mg DAILY IV 01/30/24 10:00 01/30/24 10:53 20 MG Carvedilol 3.125 mg Q12HR PO 01/30/24 10:00 01/30/24 10:52 3.125 MG Albuterol 2.5 mg Q4HPRN PRN NEB 01/29/24 22:15 01/30/24 14:07 2.5 MG Ipratropium [place] 0.5 mg Q4HPRN PRN NEB 01/29/24 22:15 01/30/24 14:07 0.5 MG Diagnostic Test (Pha) 1 strip ACHS 01/30/24 07:00 01/30/24 11:41 1 STRIP Insulin Human Regular ACHS SC 01/30/24 07:00 01/30/24 11:40 4 UNITS Dextrose 50 ml UD PRN IV 01/29/24 22:15 Sodium Chloride 10 ml Q8HR IV 01/30/24 06:00 01/30/24 14:16 10 ML Acetaminophen/ Hydrocodone Bitart 1 tab Q4HP PRN PO 01/29/24 22:15 01/29/24 23:18 1 TAB Ondansetron HCl 4 mg Q4HP PRN IV 01/29/24 22:15 Docusate Sodium 100 mg BIDPRN PRN PO 01/29/24 22:15 Acetaminophen 650 mg Q6HP PRN PO 01/29/24 22:15 01/30/24 01:54 650 MG Morphine Sulfate 2 mg Q30M PRN IV 01/29/24 22:15 Apixaban 2.5 mg BID PO 01/30/24 10:00 UNV Apixaban 5 mg BID PO 01/30/24 10:00 01/30/24 10:52 5 MG Oseltamivir Phosphate 75 mg Q12HR PO 01/30/24 22:00 02/04/24 21:59 Laboratory Results Laboratory Tests 01/30/24 05:10 Chemistry Test 01/29/24 19:15 01/30/24 05:10 Calcium Level 9.9 mg/dL (8.7-10.4) 9.5 mg/dL (8.7-10.4) Albumin 4.3 g/dL (3.2-4.8) Total Protein 7.1 g/dL (5.7-8.2) Cardiac Markers Test 01/29/24 19:15 B-Type Natriuretic Peptide 2027.81 pg/mL (0-100) LFT Test 01/30/24 05:10 Alanine Aminotransferase (ALT) 15 U/L (7-40) Alkaline Phosphatase 45 U/L (46-116) L Aspartate Amino Transferase (AST) 21 U/L (13-40) Total Bilirubin 0.8 mg/dL (0.2-1.0) Labs and/or images reviewed: Labs reviewed by me, Image(s) reviewed by me Assessment/Plan Assessment/Plan Impression: -acute on chronic hypoxic respiratory failure -pulmonary hypertension -history of pulmonary embolism -primary hypertension -influenza A -viral pneumonia -paroxysmal atrial fibrillation -acute on chronic systolic heart failure -NSTEMI type 2 secondary to demand ischemia Plan: -start Tamiflu, changed to p.o. antibiotic therapy -restart sildenafil -continue anticoagulation with Eliquis -O2 supplementation to keep saturation greater than 92% -PUD, DVT prophylaxis -continue digoxin, diuresis -repeat labs and chest x-ray in a.m. Total time spent with patient discussing and formulating plan of care: 35 minutes. This medical document was created using an electronic medical record system with [employer] dictation system. Although this document has been carefully reviewed, there may still be some phonetic and typographical errors. These areas are purely typographical due to imperfections of the software programs, and do not reflect any compromise in the patient's medical care. Plan discussed with: Patient, Other (RN) My Orders Orders - ZI UMAÑA NP Procedure Category Date Status Time Oseltamivir 75mg PHA 01/30/24 In Process Capsule (Tamiflu 75mg 22:00 Chest Portable XY 01/31/24 Logged 04:00 Basic Metabolic Panel LAB 01/31/24 Verified 04:00 Digoxin Tablet PHA 01/31/24 Verified (Lanoxin Tablet) 10:00 Sildenafil Citrate PHA 01/30/24 Verified (Revatio) 20:00 Date of Service: Jan 30, 2024 Billing Provider: ZI UMAÑA NP Common Visit Codes: [id number] INP/OBS CARE(HIGH) ZI UMAÑA NP Jan 30, 2024 16:17
[2024-01-30] MEDS ORDERED: AZITHROMYCIN 500MG/ 250ML 250 ML IV SCH (20:00)
[2024-01-30] MEDS: SILDENAFIL CITRATE 20 MG TAB PO SCH (20:45)
[2024-01-30] MEDS: OSELTAMIVIR 75 MG CAP PO SCH (22:04)
[2024-01-31] VITALS (13 sets, daily range): BP systolic 101–120; BP diastolic 60–85; PULSE 60–83; RESP 14–22; TEMP 96.3–98.9; O2SAT 14–100
[2024-01-31 06:17] LABS: Anion Gap 10 (5-15); Carbon Dioxide 26 mmol/L (20-31); Chloride 100 mmol/L (98-107); Potassium 4.2 mmol/L (3.5-5.1); Sodium 136 mmol/L (136-145)
[2024-01-31 06:19] LABS: Calcium 9.6 mg/dL (8.7-10.4)
[2024-01-31 06:23] LABS: BUN/Creatinine Ratio 33.3 (10.0-20.0); Blood Urea Nitrogen 34 mg/dL (9-23); Glucose 133 mg/dL (74-106)
--- NOTE | 2024-01-31 06:34 | DVH ---
CHEST RADIOGRAPH Indication:pna Technique: Single frontal view of the chest was obtained COMPARISON: XY CHEST PORTABLE on DOS: 01/29/24, XY CHEST PORTABLE on DOS: 08/20/23, XY CHEST PORTABLE o n DOS: 05/10/23 FINDINGS: Lines and Tubes: None Lungs: Improving aeration. Pleura: No effusion. No pneumothorax. Cardiomediastinal contours: Cardiomegaly Bones: Unremarkable IMPRESSION: Cardiomegaly. Improving aeration of the right lower lobe.
[2024-01-31] MEDS: DIGOXIN 0.125 MG TAB PO SCH (09:05)
[2024-01-31] MEDS ORDERED: ACETAMINOPHEN/CODEINE#3 (300/30mg) TAB PO PRN (16:15)
[2024-01-31] MEDS ORDERED: guaiFENesin-DM 100/10mg/5ml SYR PO PRN (16:15)
--- NOTE | 2024-01-31 16:20 | DVHPN2 ---
Subjective Patient continues to report having shortness of breath, chest pain Reviewed: Care Plan, H&P, Labs, Medications Changes from previous H/P or p: No Changes General: Per HPI Eyes: No Pain, No Vision change, No Conjunctivae inflammation, No Eyelid inflammation, No Other, No Redness ENT: No Ear pain, No Ear discharge, No Nose pain, No Nose discharge, No Nose congestion, No Mouth pain, No Mouth swelling, No Throat pain, No Throat swelling, No Other Cardiovascular: No Chest Pain, No Palpitations, No Orthopnea, No Paroxysmal Noc. Dyspnea, No Edema, No Lt Headedness, No Other Respiratory: Cough; No Dry; Shortness of breath, SOB with excertion, Wheezing; No Hemoptysis, No Pleuritic Pain, No Sputum; Other (SOB AT REST) Gastrointestinal: No Nausea, No Vomiting, No Abdominal Pain, No Diarrhea, No Constipation, No Melena, No Hematochezia, No Other Genitourinary: No Dysuria, No Frequency, No Incontinence, No Hematuria, No Retention, No Other Musculoskeletal: No other, No neck pain, No shoulder pain, No arm pain, No back pain, No hand pain, No leg pain, No foot pain Skin: No Rash, No Lesions, No Jaundice, No Bruising, No Other Objective Vitals Vital Signs Date Time Temp Pulse Resp B/P (MAP) Pulse Ox O2 Delivery O2 Flow Rate FiO2 01/31/24 13:00 97.7 73 16 113/64 (80) 97 97.7 01/31/24 09:19 Nasal Cannula* 3 32 Intake/Output Intake and Output 01/31/24 07:00 Intake Total 480 ml Balance 480 ml Intake Oral 480 ml # Voids 4 General Appearance: Alert, Oriented X3, Cooperative, mild distress HEENT: Atraumatic, PERRLA Lungs: Other (Patient continues to have expiratory wheeze) Cardiovascular: Normal S1, Normal S2 Abdomen: Normal bowel sounds Musculoskeletal: Normal sensory function, Normal motor function Neuro: Normal gait, Normal speech Psych/Mental Status: Mental status NL, Mood NL Medications Current Medications Medications Dose Ordered Sig/Stephanie Route Start Time Stop Time Status Last Admin Dose Admin Famotidine 20 mg Q12HR IV 01/30/24 10:00 01/31/24 10:03 20 MG Furosemide 20 mg DAILY IV 01/30/24 10:00 01/31/24 09:07 20 MG Carvedilol 3.125 mg Q12HR PO 01/30/24 10:00 01/31/24 10:04 3.125 MG Albuterol 2.5 mg Q4HPRN PRN NEB 01/29/24 22:15 01/31/24 09:19 2.5 MG Ipratropium [place] 0.5 mg Q4HPRN PRN NEB 01/29/24 22:15 01/31/24 09:19 0.5 MG Diagnostic Test (Pha) 1 strip ACHS 01/30/24 07:00 01/31/24 11:40 1 STRIP Insulin Human Regular ACHS SC 01/30/24 07:00 01/31/24 11:40 4 UNITS Dextrose 50 ml UD PRN IV 01/29/24 22:15 Sodium Chloride 10 ml Q8HR IV 01/30/24 06:00 01/31/24 15:22 10 ML Acetaminophen/ Hydrocodone Bitart 1 tab Q4HP PRN PO 01/29/24 22:15 01/30/24 21:34 1 TAB Ondansetron HCl 4 mg Q4HP PRN IV 01/29/24 22:15 Docusate Sodium 100 mg BIDPRN PRN PO 01/29/24 22:15 Acetaminophen 650 mg Q6HP PRN PO 01/29/24 22:15 01/30/24 01:54 650 MG Morphine Sulfate 2 mg Q30M PRN IV 01/29/24 22:15 Apixaban 2.5 mg BID PO 01/30/24 10:00 UNV Apixaban 5 mg BID PO 01/30/24 10:00 01/31/24 09:05 5 MG Oseltamivir Phosphate 75 mg Q12HR PO 01/30/24 22:00 02/04/24 21:59 01/31/24 09:05 75 MG Digoxin 0.125 mg DAILY PO 01/31/24 10:00 01/31/24 09:05 0.125 MG Sildenafil Citrate 20 mg TID@08,14,20 PO 01/30/24 20:00 01/31/24 15:22 20 MG Guaifenesin/ Dextromethorphan 10 ml Q4HP PRN PO 01/30/24 18:00 Throat Lozenges 1 gloria Q2HP PRN MT 01/30/24 18:00 Methylprednisolone Sodium Succinate 40 mg BID IV 01/31/24 22:00 UNV Guaifenesin/ Dextromethorphan 10 ml Q4HP PRN PO 01/31/24 16:15 UNV Acetaminophen/ Codeine Phosphate 1 tab Q6HP PRN PO 01/31/24 16:15 UNV Laboratory Results Laboratory Tests 01/30/24 05:10 01/31/24 05:00 Chemistry Test 01/31/24 05:00 Calcium Level 9.6 mg/dL (8.7-10.4) Labs and/or images reviewed: Labs reviewed by me, Image(s) reviewed by me Assessment/Plan Assessment/Plan Impression: -acute on chronic hypoxic respiratory failure -pulmonary hypertension -history of pulmonary embolism -primary hypertension -influenza A -viral pneumonia -paroxysmal atrial fibrillation -acute on chronic systolic heart failure -NSTEMI type 2 secondary to demand ischemia Plan: Events: Patient reports some improvement from yesterday. Echo- probable RV dysfunction with PAH -Continue Tamiflu, changed to p.o. antibiotic therapy -Continue sildenafil -pain management -Antitussives -continue anticoagulation with Eliquis -O2 supplementation to keep saturation greater than 92% -PUD, DVT prophylaxis -continue digoxin, diuresis -repeat labs and chest x-ray in a.m. Total time spent with patient discussing and formulating plan of care: 35 minutes. This medical document was created using an electronic medical record system with [employer] dictation system. Although this document has been carefully reviewed, there may still be some phonetic and typographical errors. These areas are purely typographical due to imperfections of the software programs, and do not reflect any compromise in the patient's medical care. Plan discussed with: Patient, Other (RN) My Orders Orders - ZI UMAÑA NP Procedure Category Date Status Time Methylprednisolone PHA 01/31/24 Logged Sod Succ (Solu Medrol 22:00 Guaifenesin-Dextromet PHA 01/31/24 Logged Liquid (Robitussin 16:15 Acetaminophen/Codeine PHA 01/31/24 Logged Tablet (Tylenol W/ 16:15 Date of Service: Jan 31, 2024 Billing Provider: ZI UMAÑA NP Common Visit Codes: [id number] INP/OBS CARE(HIGH) ZI UMAÑA NP Jan 31, 2024 16:20
--- NOTE | 2024-01-31 18:01 | DVHINCON2 ---
Date of service: Jan 31, 2024 Referring Physician Hospitalist Reason for Consultation Chest tightness and elevated troponin levels History of Present Illness Yoselyn Hollingsworth is a 53-year-old female with a history of hypertension, diabetes, hyperlipidemia, asthma, pulmonary hypertension, home O2 on 3 liters nasal cannula, PE, paroxysmal AFib, and CHF who presented to the ED with complaints of chest tightness and elevated troponin levels. Patient also endorsed some dizziness as well as dry cough and progressive shortness of breath over the past 3 days. Patient indicates she used her inhaler without any relief. O2 saturations were 90% on 4 liters upon arrival to the ED. Patients chest tightness is described as generalized without radiation. She experiences shortness of breath with exertion as well as wheezing. Tightness in the chest is improved with breathing treatments. Patient indicates that she just recently started seeing a torch straightener and heater by the name of Dr. Nathan but has only seen him for the initial consultation appointment. She also indicates that she had a left heart cath at the beginning of last year or the year before and believes that everything was normal at that time. She has been found positive for influenza A during this admission. BNP level is elevated at 2026 with high sensitivity t roponins minimally elevated at 101, 82, and 77. They were noted to be previously normal in August of this year. Echocardiogram was completed with a report pending. Chest x-ray was completed showing cardiomegaly with improved aeration of the right lower lobe. Echocardiogram in August of this year showed LVEF of 65 to 70%, with RVSP of 72mmHg. Moderate TR, moderate UT, and trivial pericardial effusion were noted at that time. Cardiology is consulted for evaluation and management of the patient. Review of past medical records showed LHC and RHC in March [address] Monsivais showing type I Pulmonary Hypertension and no angiographic evidence of obstructive CAD. Family History: Diabetes mellitus grandmother Allergies: Coded Allergies: Nitroglycerin (Verified Allergy, Unknown, 04/30/18) Home Meds Active Scripts Prednisone (Prednisone) 20 Mg Tab, 60 MG PO DAILY, #15 TAB Prov:RENA PRUITT MD 05/10/23 Levofloxacin Hemihydrate (LEVOFLOXACIN) 500 Mg Tab, 1 TAB PO DAILY, #10 TAB Prov:RENA PRUITT MD 05/10/23 Methylprednisolone (Medrol Dosepak) 4 Mg Jared, 4 MG PO UD, #21 TAB UAD Prov:ANICETO IGNACIO 03/01/23 Triamcinolone Acetonide (Triamcinolone Acetonide) 0.025 % Cre, 1 APPLIC TOP BID, #30 GRAMS Prov:ANICETO IGNACIO 03/01/23 Cephalexin Monohydrate (Cephalexin) 500 Mg Cap, 1 CAP PO TID, #30 CAP Prov:ANICETO IGNACIO 03/01/23 Acetaminophen W/ Codeine (Tylenol W/Cod #3) 1 Tab Tb, 1 TAB PO Q4HPRN PRN, #15 TAB 0 Refills Prov:NICKI BROCK PA 05/03/22 Sildenafil Citrate (Revatio) 20 Mg Tab, 20 MG PO TID@08,14,20 for 30 Days, #90 TAB Prov:LOYD BOLAÑOS [employer] 04/06/22 Reported Medications Digoxin (Digoxin) 125 Mcg Tab, 125 MCG PO, TAB 08/21/23 Spironolactone (Spironolactone) 25 Mg Tab, 1 TAB PO BID 04/03/22 Apixaban Base (ELIQUIS) 2.5 Mg Tab, 1 TAB PO BID 04/03/22 Metformin Hydrochloride (Metformin Hydrochloride) 500 Mg Tab, 1 TAB PO 04/03/22 Current Medications Current Medications Medications (Trade) Dose Ordered Sig/Stephanie Route PRN Reason Start Time Stop Time Status Last Admin Azithromycin 250 ml @ 125 mls/hr DAILY@1999 IV 01/30/24 20:00 01/30/24 14:53 DC Oseltamivir Phosphate (Tamiflu 75MG Capsule) 75 mg Q12HR PO 01/30/24 22:00 02/04/24 21:59 01/31/24 09:05 Digoxin (Lanoxin Tablet) 0.125 mg DAILY PO 01/31/24 10:00 01/31/24 09:05 Sildenafil Citrate (Revatio) 20 mg TID@08,14,20 PO 01/30/24 20:00 01/31/24 15:22 Methylprednisolone Sodium Succinate (Solu Medrol) 40 mg BID IV 01/31/24 22:00 Guaifenesin/ Dextromethorphan (Robitussin-Dm Liquid) 10 ml Q4HP PRN PO FOR COUGH 01/31/24 16:15 Acetaminophen/ Codeine Phosphate (Tylenol W/Cod #3 Tablet) 1 tab Q6HP PRN PO MODERATE PAIN (4-6 PAIN SCALE) 01/31/24 16:15 Vital Signs Vital Signs Date Time Temp Pulse Resp B/P (MAP) Pulse Ox O2 Delivery O2 Flow Rate FiO2 01/31/24 16:37 97.8 70 19 114/85 (95) 95 97.8 01/31/24 09:19 Nasal Cannula* 3 32 Physical Exam General: NAD, isolation for influenza A Cardiac: RRR, no M/R/G Pulm: diffuse rhonchi, productive cough Neuro: AAO x 4. Labs/Diagnostic Data Labs Test 01/31/24 16:48 01/31/24 05:00 01/30/24 05:10 01/29/24 22:23 Range/Units POC Glucose 173 H 70-106 mg/dl Sodium Level 136 136-145 mmol/L Potassium Level 4.2 3.5-5.1 mmol/L Chloride Level 100 98-107 mmol/L Carbon Dioxide Level 26 20-31 mmol/L Anion Gap 10 5-15 Blood Urea Nitrogen 34 H 9-23 mg/dL Creatinine 1.02 0.550-1.02 mg/dL Glomerular Filtration Rate Calc 66 >90 mL/min BUN/Creatinine Ratio 33.3 H 10.0-20.0 Serum Glucose 133 H 74-106 mg/dL Calcium Level 9.6 8.7-10.4 mg/dL White Blood Count 6.5 # 4.4-10.8 10^3/uL Red Blood Count 5.45 H 4.0-5.20 10^6/uL Hemoglobin 17.5 H 12.2-16.2 g/dL Hematocrit 52.2 H 36.0-46.0 % Mean Corpuscular Volume 95.8 80.0-100.0 fL Mean Corpuscular Hemoglobin 32.1 H 28.0-32.0 pg Mean Corpuscular Hemoglobin Concent 33.5 32.0-36.0 g/dL Red Cell Distribution Width 14.0 11.8-14.3 % Platelet Count 193 140-450 10^3/uL Mean Platelet Volume 8.0 6.9-10.8 fL Neutrophils (%) (Auto) 91.2 H 37.0-80.0 % Lymphocytes (%) (Auto) 5.0 L 10.0-50.0 % Monocytes (%) (Auto) 3.8 0.0-12.0 % Eosinophils (%) (Auto) 0.0 0.0-7.0 % Basophils (%) (Auto) 0.0 0.0-2.0 % Neutrophils # (Auto) 6.0 1.6-8.6 10 ^3/uL Lymphocytes # (Auto) 0.3 L 0.4-5.4 10 ^3/uL Monocytes # (Auto) 0.2 0-1.3 10 ^3/uL Eosinophils # (Auto) 0 0-0.8 10 ^3/uL Basophils # (Auto) 0 0-0.2 10 ^3/uL Nucleated Red Blood Cells 0.1 % Total Bilirubin 0.8 0.2-1.0 mg/dL Aspartate Amino Transferase (AST) 21 13-40 U/L Alanine Aminotransferase (ALT) 15 7-40 U/L Alkaline Phosphatase 45 L 46-116 U/L Total Protein 7.1 5.7-8.2 g/dL Albumin 4.3 3.2-4.8 g/dL Influenza Type A Antigen Positive Negative Influenza Type B Antigen Negative Negative SARS-CoV-2 Antigen (Rapid) Negative NEGATIVE Test 01/29/24 22:18 01/29/24 19:15 Range/Units Troponin I High Sensitivity 77 *H </=34 ng/L B-Type Natriuretic Peptide 2027.81 0-100 pg/mL Plan/Recommendation 53-year-old female with a history of hypertension, diabetes, hyperlipidemia, asthma, pulmonary hypertension, home O2 on 3 liters nasal cannula, PE, paroxysmal AFib, and CHF who presented to the ED with complaints of chest tightn ess and elevated troponin levels. Patient also endorsed some dizziness as well as dry cough and progressive shortness of breath over the past 3 days. Patient indicates she used her inhaler without any relief. O2 saturations were 90% on 4 liters upon arrival to the ED. Patients chest tightness is described as generalized without radiation. She experiences shortness of breath with exertion as well as wheezing. Tightness in the chest is improved with breathing treatments. Patient indicates that she just recently started seeing a torch straightener and heater by the name of Dr. Nathan but has only seen him for the initial consultation appointment. She also indicates that she had a left heart cath at the beginning of last year or the year before and believes that everything was n ormal at that time. She has been found positive for influenza A during this admission. BNP level is elevated at 2026 with high sensitivity troponins minimally elevated at 101, 82, and 77. They were noted to be previously normal in August of this year. Echocardiogram was completed with a report pending. Chest x-ray was completed showing cardiomegaly with improved aeration of the right lower lobe. Echocardiogram in August of this year showed LVEF of 65 to 70%, with RVSP of 72mmHg. Moderate TR, moderate UT, and trivial pericardial effusion were noted at that time. Cardiology is consulted for evaluation and management of the patient. Review of past medical records showed LHC and RHC in March [address] Monsivasi showing type I Pulmonary Hypertension and no angiographic evidence of obstructive CAD. Assessments: Acute on Chronic hypoxic respiratory failure Severe pulmonary Hypertension - type I physiology Hypertension Acute on Chronic diastolic CHF Paroxysmal Afib on chronic AC Elevated troponin - considered demand ischemia Influenza A Cardiac Recommendations: ECHO requested - Report pending - Lasix on board for diuresis given BNP 2026.81. - Monitor for evidence of fluid overload, strict I/o and daily weights suggested Continue Digoxin, BBlocker and eliquis for PAF Continue Revatio 20mg BID for pulmonary HTN Troponin level did show mild elevation which at present favors demand ischemia in the presence of Influenza A, hypoxic respiratory failure, and CHF exacerbation. Previous Cath 2022 showed no evidence of obstructive CAD. No need for ischemic workup at this time. BP is well controlled with Coreg 3.125mg BID. Management on telemetry. Follow up electrolytes and kidney function tests and correct abnormalities Lifestyle and risk modification counseling provided. Further evaluation and management will depend on clinical progression. Thank you for the consultation. A total of 75 minutes was spent reviewing the patient record, examining the patient, making a diagnostic and therapeutic plan, discussing this plan with medical personnel, following up on diagnostic studies and following the patient for clinical stability excluding any and all procedures. At least 50% of this time was spent in direct, [id number] contact. Plan discussed with: Patient, Other (RN) Provider Statement: I have reviewed the case with my supervising physician. We have agreed with the plan of care. TEE ASHER Jan 31, 2024 18:01
[2024-01-31] MEDS: methylPREDNISolone SOD SUCC 40 MG/ML VL IV SCH (21:52)
[2024-01-31] MEDS: guaiFENesin-DM 100/10mg/5ml SYR PO PRN (21:55)
[2024-02-01] VITALS (16 sets, daily range): BP systolic 106–142; BP diastolic 60–79; PULSE 58–78; RESP 13–20; TEMP 97.8–98.3; O2SAT 90–99
[2024-02-01] MEDS: THROAT LOZENGES(CEPASTAT) MT PRN (10:26)
--- NOTE | 2024-02-01 11:22 | DVHPN2 ---
Progress Note - Dictate Date Seen: Feb 01, 2024 Medical Necessity Reason Pt with a Central, PICC or Fol: No Subjective Patient seen and evaluated in telemetry. Patient is without complaints or concerns currently. She remains on isolation for influenza A. BP has been well controlled. She is not being monitored on telemetry. At present, patient is cardiac stable. Continue with current cardiac management. Will continue to follow from cardiac perspective. vital signs Vital Sign Date Time Temp Pulse Resp B/P (MAP) Pulse Ox O2 Delivery O2 Flow Rate FiO2 02/01/24 10:20 63 02/01/24 10:18 108/64 02/01/24 09:00 98.1 17 95 98.1 02/01/24 08:22 Nasal Cannula* 3 32 Total Intake and Output 01/31/24 01/31/24 02/01/24 15:00 23:00 07:00 Intake Total 300 ml 100 ml Output Total 0 ml Balance 300 ml 100 ml medications Current Medications Medications Dose Ordered Sig/Stephanie Route Start Time Stop Time Status Last Admin Dose Admin Famotidine 20 mg Q12HR IV 01/30/24 10:00 02/01/24 10:18 20 MG Furosemide 20 mg DAILY IV 01/30/24 10:00 02/01/24 10:18 20 MG Carvedilol 3.125 mg Q12HR PO 01/30/24 10:00 01/31/24 21:54 3.125 MG Albuterol 2.5 mg Q4HPRN PRN NEB 01/29/24 22:15 02/01/24 08:22 2.5 MG Ipratropium [place] 0.5 mg Q4HPRN PRN NEB 01/29/24 22:15 02/01/24 08:22 0.5 MG Diagnostic Test (Pha) 1 strip ACHS 01/30/24 07:00 02/01/24 06:26 1 STRIP Insulin Human Regular ACHS SC 01/30/24 07:00 02/01/24 06:27 2 UNITS Dextrose 50 ml UD PRN IV 01/29/24 22:15 Sodium Chloride 10 ml Q8HR IV 01/30/24 06:00 02/01/24 06:25 10 ML Acetaminophen/ Hydrocodone Bitart 1 tab Q4HP PRN PO 01/29/24 22:15 01/31/24 21:55 1 TAB Ondansetron HCl 4 mg Q4HP PRN IV 01/29/24 22:15 Docusate Sodium 100 mg BIDPRN PRN PO 01/29/24 22:15 Acetaminophen 650 mg Q6HP PRN PO 01/29/24 22:15 01/30/24 01:54 650 MG Morphine Sulfate 2 mg Q30M PRN IV 01/29/24 22:15 Apixaban 2.5 mg BID PO 01/30/24 10:00 UNV Apixaban 5 mg BID PO 01/30/24 10:00 02/01/24 10:20 5 MG Oseltamivir Phosphate 75 mg Q12HR PO 01/30/24 22:00 02/04/24 21:59 02/01/24 10:20 75 MG Digoxin 0.125 mg DAILY PO 01/31/24 10:00 02/01/24 10:20 0.125 MG Sildenafil Citrate 20 mg TID@08,14,20 PO 01/30/24 20:00 02/01/24 10:20 20 MG Guaifenesin/ Dextromethorphan 10 ml Q4HP PRN PO 01/30/24 18:00 02/01/24 06:30 10 ML Throat Lozenges 1 girish Q2HP PRN MT 01/30/24 18:00 02/01/24 10:26 1 GIRISH Methylprednisolone Sodium Succinate 40 mg BID IV 01/31/24 22:00 02/01/24 10:20 40 MG Guaifenesin/ Dextromethorphan 10 ml Q4HP PRN PO 01/31/24 16:15 Acetaminophen/ Codeine Phosphate 1 tab Q6HP PRN PO 01/31/24 16:15 laboratory and microbiology Laboratory Tests 01/31/24 05:00 01/30/24 05:10 Test 01/31/24 05:00 Range/Units Serum Glucose 133 H 74-106 mg/dL Assessment/Plan 53-year-old female with a history of hypertension, diabetes, hyperlipidemia, asthma, pulmonary hypertension, home O2 on 3 liters nasal cannula, PE, paroxysmal AFib, and CHF who presented to the ED with complaints of chest tightness and elevated troponin levels. Patient also endorsed some dizziness as well as dry cough and progressive shortness of breath over the past 3 days. Patient indicates she used her inhaler without any relief. O2 saturations were 90% on 4 liters upon arrival to the ED. Patients chest tightness is described as generalized without radiation. She experiences shortness of breath with exertion as well as wheezing. Tightness in the chest is improved with breathing treatments. Patient indicates that she just recently started seeing a prism inspector by the name of Dr. Nathan but has only seen him for the initial consultation appointment. She also indicates that she had a left heart cath at the beginning of last year or the year before and believes that everything was normal at that time. She has been found positive for influenza A during this admission. BNP level is elevated at 2026 with high sensitivity troponins minimally elevated at 101, 82, and 77. They were noted to be previously normal in August of this year. Echocardiogram was completed with a report pending. Chest x-ray was completed showing cardiomegaly with improved aeration of the right lower lobe. Echocardiogram in August of this year showed LVEF of 65 to 70%, with RVSP of 72mmHg. Moderate TR, moderate [place], and trivial pericardial effusion were noted at that time. Cardiology is consulted for evaluation and management of the patient. Review of past medical records showed LHC and RHC in March [address] Monsivais showing type I Pulmonary Hypertension and no angiographic evidence of obstructive CAD. Assessments: Acute on Chronic hypoxic respiratory failure Severe pulmonary Hypertension - type I physiology Hypertension Acute on Chronic diastolic CHF Paroxysmal Afib on chronic AC Elevated troponin - considered demand ischemia Influenza A Cardiac Recommendations: ECHO requested - Report pending - Lasix on board for diuresis given BNP 2026.81. - Monitor for evidence of fluid overload, strict I/o and daily weights suggested Continue Digoxin, BBlocker and eliquis for PAF Continue Revatio 20mg BID for pulmonary HTN Troponin level did show mild elevation which at present favors demand ischemia in the presence of Influenza A, hypoxic respiratory failure, and CHF exacerbation. Previous Cath 2022 showed no evidence of obstructive CAD. No need for ischemic workup at this time. BP is well controlled with Coreg 3.125mg BID. Management on telemetry. Follow up electrolytes and kidney function tests and correct abnormalities Lifestyle and risk modification counseling provided. Further evaluation and management will depend on clinical progression. Thank you for the consultation. Patient's status, findings, and plan of care was discussed and reviewed with supervising physician Dr. Vega, who is in agreement with current plan of care. A total of 75 minutes was spent reviewing the patient record, examining the patient, making a diagnostic and therapeutic plan, discussing this plan with medical personnel, following up on diagnostic studies and following the patient for clinical stability excluding any and all procedures. At least 50% of this time was spent in direct, [id number] contact. Plan discussed with: Patient, Other (RN) Provider Statement: I have reviewed the case with my supervising physician. We have agreed with the plan of care. TEE ASHER [facility] Feb 01, 2024 11:22
--- NOTE | 2024-02-01 12:31 | DVHPN2 ---
Subjective Patient continues to report having shortness of breath, chest pain Reviewed: Care Plan, H&P, Labs, Medications Changes from previous H/P or p: No Changes General: Per HPI Eyes: No Pain, No Vision change, No Conjunctivae inflammation, No Eyelid inflammation, No Other, No Redness ENT: No Ear pain, No Ear discharge, No Nose pain, No Nose discharge, No Nose congestion, No Mouth pain, No Mouth swelling, No Throat pain, No Throat swelling, No Other Cardiovascular: No Chest Pain, No Palpitations, No Orthopnea, No Paroxysmal Noc. Dyspnea, No Edema, No Lt Headedness, No Other Respiratory: Cough; No Dry; Shortness of breath, SOB with excertion, Wheezing; No Hemoptysis, No Pleuritic Pain, No Sputum; Other (SOB AT REST) Gastrointestinal: No Nausea, No Vomiting, No Abdominal Pain, No Diarrhea, No Constipation, No Melena, No Hematochezia, No Other Genitourinary: No Dysuria, No Frequency, No Incontinence, No Hematuria, No Retention, No Other Musculoskeletal: No other, No neck pain, No shoulder pain, No arm pain, No back pain, No hand pain, No leg pain, No foot pain Skin: No Rash, No Lesions, No Jaundice, No Bruising, No Other Objective Vitals Vital Signs Date Time Temp Pulse Resp B/P (MAP) Pulse Ox O2 Delivery O2 Flow Rate FiO2 02/01/24 10:20 63 02/01/24 10:18 108/64 02/01/24 09:00 98.1 17 95 98.1 02/01/24 08:22 Nasal Cannula* 3 32 Intake/Output Intake and Output 02/01/24 07:00 Intake Total 400 ml Output Total 0 ml Balance 400 ml Intake Oral 400 ml Output Stool Total 0 ml # Voids 8 General Appearance: Alert, Oriented X3, Cooperative, mild distress HEENT: Atraumatic, PERRLA Lungs: Other (Patient continues to have expiratory wheeze) Cardiovascular: Normal S1, Normal S2 Abdomen: Normal bowel sounds Musculoskeletal: Normal sensory function, Normal motor function Neuro: Normal gait, Normal speech Psych/Mental Status: Mental status NL, Mood NL Medications Current Medications Medications Dose Ordered Sig/Stephanie Route Start Time Stop Time Status Last Admin Dose Admin Famotidine 20 mg Q12HR IV 01/30/24 10:00 02/01/24 10:18 20 MG Furosemide 20 mg DAILY IV 01/30/24 10:00 02/01/24 10:18 20 MG Carvedilol 3.125 mg Q12HR PO 01/30/24 10:00 01/31/24 21:54 3.125 MG Albuterol 2.5 mg Q4HPRN PRN NEB 01/29/24 22:15 02/01/24 08:22 2.5 MG Ipratropium [place] 0.5 mg Q4HPRN PRN NEB 01/29/24 22:15 02/01/24 08:22 0.5 MG Diagnostic Test (Pha) 1 strip ACHS 01/30/24 07:00 02/01/24 06:26 1 STRIP Insulin Human Regular ACHS SC 01/30/24 07:00 02/01/24 06:27 2 UNITS Dextrose 50 ml UD PRN IV 01/29/24 22:15 Sodium Chloride 10 ml Q8HR IV 01/30/24 06:00 02/01/24 06:25 10 ML Acetaminophen/ Hydrocodone Bitart 1 tab Q4HP PRN PO 01/29/24 22:15 01/31/24 21:55 1 TAB Ondansetron HCl 4 mg Q4HP PRN IV 01/29/24 22:15 Docusate Sodium 100 mg BIDPRN PRN PO 01/29/24 22:15 Acetaminophen 650 mg Q6HP PRN PO 01/29/24 22:15 01/30/24 01:54 650 MG Morphine Sulfate 2 mg Q30M PRN IV 01/29/24 22:15 Apixaban 2.5 mg BID PO 01/30/24 10:00 UNV Apixaban 5 mg BID PO 01/30/24 10:00 02/01/24 10:20 5 MG Oseltamivir Phosphate 75 mg Q12HR PO 01/30/24 22:00 02/04/24 21:59 02/01/24 10:20 75 MG Digoxin 0.125 mg DAILY PO 01/31/24 10:00 02/01/24 10:20 0.125 MG Sildenafil Citrate 20 mg TID@08,14,20 PO 01/30/24 20:00 02/01/24 10:20 20 MG Guaifenesin/ Dextromethorphan 10 ml Q4HP PRN PO 01/30/24 18:00 02/01/24 06:30 10 ML Throat Lozenges 1 girish Q2HP PRN MT 01/30/24 18:00 02/01/24 10:26 1 GIRISH Methylprednisolone Sodium Succinate 40 mg BID IV 01/31/24 22:00 02/01/24 10:20 40 MG Guaifenesin/ Dextromethorphan 10 ml Q4HP PRN PO 01/31/24 16:15 Acetaminophen/ Codeine Phosphate 1 tab Q6HP PRN PO 01/31/24 16:15 Laboratory Results Laboratory Tests 01/30/24 05:10 01/31/24 05:00 Assessment/Plan Assessment/Plan Impression: -acute on chronic hypoxic respiratory failure -pulmonary hypertension -history of pulmonary embolism -primary hypertension -influenza A -viral pneumonia -paroxysmal atrial fibrillation -acute on chronic systolic heart failure -NSTEMI type 2 secondary to demand ischemia Plan: Events: Events overnight. No change in A/P 02/01/2024 -Continue Tamiflu, changed to p.o. antibiotic therapy -Continue sildenafil -pain management -Antitussives -continue anticoagulation with Eliquis -O2 supplementation to keep saturation greater than 92% -PUD, DVT prophylaxis -continue digoxin, diuresis -repeat labs and chest x-ray in a.m. Total time spent with patient discussing and formulating plan of care: 35 minutes. This medical document was created using an electronic medical record system with [employer] dictation system. Although this document has been carefully reviewed, there may still be some phonetic and typographical errors. These areas are purely typographical due to imperfections of the software programs, and do not reflect any compromise in the patient's medical care. Plan discussed with: Patient, Other (RN) My Orders Orders - ZI UMAÑA NP Procedure Category Date Status Time Methylprednisolone PHA 01/31/24 In Process Sod Succ (Solu Medrol 22:00 Guaifenesin-Dextromet PHA 01/31/24 In Process Liquid (Robitussin 16:15 Acetaminophen/Codeine PHA 01/31/24 In Process Tablet (Tylenol W/ 16:15 Date of Service: Feb 01, 2024 Billing Provider: ZI UMAÑA NP Common Visit Codes: [id number] INP/OBS CARE(MOD) ZI UMAÑA NP Feb 01, 2024 12:31
[2024-02-02] VITALS (10 sets, daily range): BP systolic 101–127; BP diastolic 53–74; PULSE 56–76; RESP 16–20; TEMP 97.4–98.2; O2SAT 91–100
--- NOTE | 2024-02-02 08:36 | DVHSR ---
APPROVED REPORT EXAM: Two-dimensional and M-mode echocardiogram with Doppler and color Doppler. Blood Pressure: 126/66 mmHg INDICATION CHF exacerbation RISK FACTORS Height: 59, Weight: 132 DIMENSIONS LVDd3.3 (3.8-5.7cm)LA (2D)3.1 (1.9-4.0cm)Aortic Root3.3 (2.0-3.7cm) LVDs2.1 (2.5-4.0cm)LA (MM) (1.9-4.0cm)Aortic Cusp Exc2.0 (1.5-2.0cm) EF (%) 65.0 (55-70%)Rt. Atrium6.5 (1.9-4.0cm)Asc. Aorta cm Mitral Valve MitralMitral Stenosis E wave0.53m/sMV Mean GR.mmHg A wave0.71m/sMV Peak GR.mmHg E/A ratio0.72D MVAcm2 DECEL [id number] 1/2 Timems Aortic Valve Aortic ValveAortic Stenosis V10.58m/Radha Mean GR.2mmHg V20.89m/Radha Peak GR.3mmHg LVOT Diameter1.7 (1.8-2.4cm)Doppler AVA1.48cm2 Tricuspid Valve TR Velocity3.47m/s [id number] Conclusion Left ventricle: Left ventricle is normal-sized with normal systolic function. LVEF was around 65%. D shaped septum in systole and diastole is in favor of pulmonary hypertension. Right-sided chambers are significantly dilated. Right ventricular systolic pressure is reduced. Lef t atrium was normal-sized. Aortic valve was trileaflet. There was no aortic insufficiency/stenosis. There was trivial mitral r egurgitation. There was moderate tricuspid regurgitation. There was moderate pulmonary valve insuff iciency. Right ventricular systolic pressure was at least 76 mm Hg. There was no pericardial effusion. IVC w as dilated.
--- NOTE | 2024-02-02 10:20 | DVHPN2 ---
Progress Note - Dictate Date Seen: Feb 02, 2024 Medical Necessity Reason Pt with a Central, PICC or Fol: No vital signs Vital Sign Date Time Temp Pulse Resp B/P (MAP) Pulse Ox O2 Delivery O2 Flow Rate FiO2 02/02/24 09:52 56 02/02/24 09:50 101/53 02/02/24 08:00 18 94 Nasal Cannula* 4 36 02/02/24 05:06 97.4 97.4 Total Intake and Output 02/01/24 02/01/24 02/02/24 15:00 23:00 07:00 Intake Total 2000 ml 500 ml Output Total 1 ml Balance 2000 ml 499 ml medications Current Medications Medications Dose Ordered Sig/Stephanie Route Start Time Stop Time Status Last Admin Dose Admin Famotidine 20 mg Q12HR IV 01/30/24 10:00 02/01/24 22:05 20 MG Furosemide 20 mg DAILY IV 01/30/24 10:00 02/01/24 10:18 20 MG Carvedilol 3.125 mg Q12HR PO 01/30/24 10:00 02/01/24 22:06 3.125 MG Albuterol 2.5 mg Q4HPRN PRN NEB 01/29/24 22:15 02/01/24 21:39 2.5 MG Ipratropium [place] 0.5 mg Q4HPRN PRN NEB 01/29/24 22:15 02/01/24 21:39 0.5 MG Diagnostic Test (Pha) 1 strip ACHS 01/30/24 07:00 02/02/24 06:36 1 STRIP Insulin Human Regular ACHS SC 01/30/24 07:00 02/01/24 22:22 8 UNITS Dextrose 50 ml UD PRN IV 01/29/24 22:15 Sodium Chloride 10 ml Q8HR IV 01/30/24 06:00 02/02/24 05:38 10 ML Acetaminophen/ Hydrocodone Bitart 1 tab Q4HP PRN PO 01/29/24 22:15 02/01/24 22:07 1 TAB Ondansetron HCl 4 mg Q4HP PRN IV 01/29/24 22:15 Docusate Sodium 100 mg BIDPRN PRN PO 01/29/24 22:15 Acetaminophen 650 mg Q6HP PRN PO 01/29/24 22:15 01/30/24 01:54 650 MG Morphine Sulfate 2 mg Q30M PRN IV 01/29/24 22:15 Apixaban 2.5 mg BID PO 01/30/24 10:00 UNV Apixaban 5 mg BID PO 01/30/24 10:00 02/02/24 09:52 5 MG Oseltamivir Phosphate 75 mg Q12HR PO 01/30/24 22:00 02/04/24 21:59 02/02/24 09:52 75 MG Digoxin 0.125 mg DAILY PO 01/31/24 10:00 02/02/24 09:52 0.125 MG Sildenafil Citrate 20 mg TID@08,14,20 PO 01/30/24 20:00 02/02/24 09:52 20 MG Guaifenesin/ Dextromethorphan 10 ml Q4HP PRN PO 01/30/24 18:00 02/01/24 22:07 10 ML Throat Lozenges 1 girish Q2HP PRN MT 01/30/24 18:00 02/01/24 18:21 1 GIRISH Methylprednisolone Sodium Succinate 40 mg BID IV 01/31/24 22:00 02/02/24 09:52 40 MG Guaifenesin/ Dextromethorphan 10 ml Q4HP PRN PO 01/31/24 16:15 Acetaminophen/ Codeine Phosphate 1 tab Q6HP PRN PO 01/31/24 16:15 laboratory and microbiology Laboratory Tests 02/02/24 05:37 01/31/24 05:00 01/30/24 05:10 Test 01/31/24 05:00 Range/Units Serum Glucose 133 H 74-106 mg/dL Assessment/Plan Patient is a 53-year-old female who presented to the hospital for tightness/shortness of breath and productive cough. She is known to have pulmonary hypertension since 2010. Cardiology was involved for cardiac aspects of care. She mentions that she has been on Eliquis since diagnosis of pulmonary hypertension in 2010 (she denies official diagnosis of atrial fibrillation/pulmonary emboli/lower extremity DVT). Since admission, the patient is found to have type a influenza which could have contributed to the clinical picture Not in acute distress. Lying comfortably flat in bed. On nasal cannula oxygen supplementation. No JVD. Sublimity and wet mucosa. No goiter. Not using accessory muscles of breathing. Scattered rhonchi in the lungs is heard. No rales. Cardiac: Regular regular, diastolic rumble at the base of his heart and systolic murmur at the base of the heart is heard. Abdomen is soft. Positive likely. No gross mass. Extremities: No edema. Dorsalis pedis is 2+ bilateral Past medical history includes pulmonary hypertension (diagnosed in 2010), rheumatoid arthritis, hypertension, hyperlipidemia, rheumatoid arthritis, DJD and diabetes mellitus. She mentions old history of methamphetamine abuse (last used many years ago). She has not been compliant with follow-up with pulmonology/cardiology. No relevant family history. She mentions that she has been on Eliquis since 2010 when she was diagnosed with pulmonary hypertension (she denies official diagnosis of atrial fibrillation/irregular heartbeat/pulmonary emboli/DVT). Echocardiogram of April 02, 2022 revealed: Mild concentric left ventricular hypertrophy, ejection fraction of 45-50%, paradoxical septal motion, D shaped septum, markedly dilated RV/RA, moderate TR/HPI, right ventricular systolic pressure 90 mm Hg, severe pulmonary hypertension Echocardiogram of August 21, 2023 had reported ejection fraction of 65-70%, moderate TR/PI, D shaped septum and right ventricular systolic pressure of 72 mm Hg Right and left heart catheterization of April 06, 2022 revealed: Type I Pulmonary Hypertension; No Angiographic Evidence of Obstructive Coronary Artery Disease; Suggestion for Management: Manage Pulmonary Hypertension Troponin (high sensitive): 101 - 82 - 77 BNP: 7.81 Positive for type A influenza Chest x-ray revealed: IMPRESSION: 1. Right lower lobe airspace disease. 2. Questionable left lower lobe airspace disease as well. Repeat chest x-ray reported: IMPRESSION: Cardiomegaly. Improving aeration of the right lower lobe. Telemetry shows sinus rhythm Echocardiogram revealed: Left ventricle: Left ventricle is normal-sized with normal systolic function. LVEF was around 65%. D shaped septum in systole and diastole is in favor of pulmonary hypertension. Right-sided chambers are significantly dilated. Right ventricular systolic pressure is reduced. Left atrium was normal-sized. Aortic valve was trileaflet. There was no aortic insufficiency/stenosis. There was trivial mitral regurgitation. There was moderate tricuspid regurgitation. There was moderate pulmonary valve insufficiency. Right ventricular systolic pressure was at least 76 mm Hg. There was no pericardial effusion. IVC was dilated. Patient is a 53 year old female who presented with shortness of breath-chest discomfort and productive cough. She is found to have type A influenza. Does have history of pulmonary hypertension which could have contributed to the clinical picture. It is of note is that the patient is on chronic Eliquis since 2010 when she was diagnosed with pulmonary hypertension, but also has never been diagnosed with atrial fibrillation/pulmonary emboli/DVT of lower extremities. 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 URI Influenza (type A) pneumonia Pulmonary hypertension, type 1 Exacerbation of pulmonary hypertension can not be ruled out Rheumatoid arthritis Diabetes mellitus Hyperlipidemia History of substance abuse (methamphetamine abuse), not recent Chronic anticoagulation use Cardiac suggestion for management: Manage on telemetry Follow-up electrolytes and kidney function tests and correct abnormalities Management of URI/influenza as per primary team Pulmonary consult CT of the chest without contrast is suggested Continue Sildenafil Continuation of anticoagulation (Eliquis) can be justified for now Obtain previous medical records ([facility]) Lifestyle and risk factor modification is advised. A total of 55 minutes was spent reviewing the patient record, examining the patient, making a diagnostic and therapeutic plan, discussing this plan with medical personnel, following up on diagnostic studies and following the patient for clinical stability excluding any and all procedures. At least 50% of this time was spent in direct, [id number] contact. Thank you for allowing me to participate in this patient's care. Further recommendations will depend on patient's clinical course. Please do not hesitate to contact me if you have any questions or concerns. This medical document was created using electronic medical record system with [employer] computerized dictation system. Although this document has been carefully reviewed, there may still be some phonetic and typographical errors. These areas are purely typographical due to the imperfection of the software programs, and do not reflect any compromise in the patient's medical care. Plan discussed with: Patient, Other (nurse) VINNY CAMPOS MD Feb 02, 2024 10:20
[2024-02-02] MEDS ORDERED: FLUT100M INH (10:31)
[2024-02-02] MEDS ORDERED: TAMIFLU PO (14:24)
[2024-02-02] MEDS ORDERED: GUAI1SOL3 PO (14:25)
[2024-02-02] MEDS ORDERED: GUAI100S6 PO ×2 (14:27→14:29)
[2024-02-02] MEDS ORDERED: DEXT1SYP9 PO (14:30)
--- NOTE | 2024-02-02 14:36 | DVHDS2 ---
Discharge Summary Date of Admission Jan 29, 2024 at 22:11 Date of Discharge: Feb 02, 2024 Admitting Diagnosis COPD with acute exacerbation Labs/Diagnostic Data: Laboratory Results Test 02/02/24 06:09 02/02/24 05:37 01/31/24 05:00 01/30/24 05:10 POC Glucose 114 mg/dl (70-106) Creatinine 0.84 mg/dL (0.550-1.02) Glomerular Filtration Rate Calc 83 mL/min (>90) Digoxin Level 0.34 ng/mL (0.8-2) Sodium Level 136 mmol/L (136-145) Potassium Level 4.2 mmol/L (3.5-5.1) Chloride Level 100 mmol/L (98-107) Carbon Dioxide Level 26 mmol/L (20-31) Anion Gap 10 (5-15) Blood Urea Nitrogen 34 mg/dL (9-23) BUN/Creatinine Ratio 33.3 (10.0-20.0) Serum Glucose 133 mg/dL (74-106) Calcium Level 9.6 mg/dL (8.7-10.4) White Blood Count 6.5 10^3/uL (4.4-10.8) Red Blood Count 5.45 10^6/uL (4.0-5.20) Hemoglobin 17.5 g/dL (12.2-16.2) Hematocrit 52.2 % (36.0-46.0) Mean Corpuscular Volume 95.8 fL (80.0-100.0) Mean Corpuscular Hemoglobin 32.1 pg (28.0-32.0) Mean Corpuscular Hemoglobin Concent 33.5 g/dL (32.0-36.0) Red Cell Distribution Width 14.0 % (11.8-14.3) Platelet Count 193 10^3/uL (140-450) Mean Platelet Volume 8.0 fL (6.9-10.8) Neutrophils (%) (Auto) 91.2 % (37.0-80.0) Lymphocytes (%) (Auto) 5.0 % (10.0-50.0) Monocytes (%) (Auto) 3.8 % (0.0-12.0) Eosinophils (%) (Auto) 0.0 % (0.0-7.0) Basophils (%) (Auto) 0.0 % (0.0-2.0) Neutrophils # (Auto) 6.0 10 ^3/uL (1.6-8.6) Lymphocytes # (Auto) 0.3 10 ^3/uL (0.4-5.4) Monocytes # (Auto) 0.2 10 ^3/uL (0-1.3) Eosinophils # (Auto) 0 10 ^3/uL (0-0.8) Basophils # (Auto) 0 10 ^3/uL (0-0.2) Nucleated Red Blood Cells 0.1 % Total Bilirubin 0.8 mg/dL (0.2-1.0) Aspartate Amino Transferase (AST) 21 U/L (13-40) Alanine Aminotransferase (ALT) 15 U/L (7-40) Alkaline Phosphatase 45 U/L (46-116) Total Protein 7.1 g/dL (5.7-8.2) Albumin 4.3 g/dL (3.2-4.8) Test 01/29/24 22:23 01/29/24 22:18 01/29/24 19:15 Influenza Type A Antigen Positive (Negative) Influenza Type B Antigen Negative (Negative) SARS-CoV-2 Antigen (Rapid) Negative (NEGATIVE) Troponin I High Sensitivity 77 ng/L (</=34) B-Type Natriuretic Peptide 2027.81 pg/mL (0-100) Other Laboratory Tests 02/02/24 05:37 01/31/24 05:00 01/30/24 05:10 Brief Hx & Hospital Course: History of Present Illness THE PATIENT IS A 53 YEARS OLD FEMALE WITH PAST MEDICAL HISTORY OF PULMONARY HYPERTENSION, ARTHRITIS, ASTHMA, DM, HYPERLIPIDEMIA, AND HYPERTENSION WHO PRESENTED TO [facility] WITH COMPLAINT OF SHORTNESS OF BREATHS. PATIENT REPORTS SYMPTOMS PROGRESSIVELY GET WORSE WITH DIZZINESS, CHEST TIGHTNESS, DRY COUGH, PRESENT SHORTNESS OF BREATHS UNRELIEVED WITH MEDICATION, GETTING WORSE THAT PROMPTED THIS VISIT. PATIENT WAS SEEN AND EVALUATED IN THE ED, LABORATORY DATA SHOWS WBC 9.5, HEMOGLOBIN 18.5, HEMATOCRIT 55.4, PLATELETS 205, SODIUM 137, POTASSIUM 4.0, BUN 24, CREATININE 1.15, GLUCOSE 137, BNP 2027.81, TROPONIN 82. CHEST X-RAY REVEALING RIGHT LOWER LOBE AIRSPACE DISEASE. PATIENT WAS STARTED ON IV LASIX, PLEASE SEE MEDICATION ORDERS SECTION IN THE COMPUTER. ON MY ASSESSMENT, PATIENT DENIES CHEST PAIN, NO HEADACHE, NO DIZZINESS, CURRENTLY ON OXYGEN, NO NAUSEA, NO VOMITING, NO FEVER, NO CHILLS. PATIENT WAS ADMITTED FOR FURTHER EVALUATION AND MEDICAL MANAGEMENT. Course of hospitalization: Patient was found to be positive for influenza A. Patient was started on Tamiflu in addition to antibiotic therapy for community-acquired pneumonia. Patient was also given IV diuretics. She was continued on her home medications for heart failure. Echocardiogram was performed which revealed elevated right ventricular systolic pressure 75 mmHg. Cardiology consultation was obtained. Patient was continued on sildenafil. Patient states that she was chronically on home O2 supplementation at home at 2-3 liters/minute. Today, she states that she was able to ambulate with decreased amount of dyspnea. She states that clinically she feels better than previous days of her hospitalization. She was agreeable to be discharged home. The patient will be continued on her home medications as well as Tamiflu 75 mg p.o. for an additional two days. She will also be prescribed Robitussin DM for her cough. She was instructed to follow up with her torch heater, dbas as well as PCP in the next 1-2 weeks. All questions answered. Physical examination General: Alert and Oriented x3. No acute distress. Well-nourished. Eyes: EOMI. Anicteric. HENT: Moist mucous membranes. Lungs: Clear to auscultation bilaterally. No accessory muscle use. Cardiovascular: Regular rate and rhythm. No murmur. No JVD. Abdomen: Soft, non-tender and non-distended. No palpable masses. Extremities: No edema. Non-tender. Skin: No rashes or lesions. Warm. Neurologic: No focal neurological deficits. CN II-XII grossly intact, but not individually tested. Psychiatric: Cooperative. Appropriate mood and affect. Total time spent with patient discussing and formulating plan of care: 35 minutes. This medical document was created using an electronic medical record system with [employer] dictation system. Although this document has been carefully reviewed, there may still be some phonetic and typographical errors. These areas are purely typographical due to imperfections of the software programs, and do not reflect any compromise in the patient's medical care. Consults/Reason for consult Cardiology: Decompensated heart failure with pulmonary hypertension Condition at Discharge: Guarded Final Diagnosis/Problems List Acute on chronic Hypoxic Respiratory Failure Secondary Diagnosis: Impression: -pulmonary hypertension -history of pulmonary embolism -primary hypertension -influenza A -viral pneumonia -paroxysmal atrial fibrillation -acute on chronic systolic heart failure -NSTEMI type 2 secondary to demand ischemia Discharge Disposition: Home Discharge Instruct/Medications Diet: Cardiac 2g Na,low cholest Activity: No Restrictions, As Tolerated Follow Up/Referral: Follow up with dbas, torch heater, PCP at next available appointment. Medications: Continue all previous home medications Tamiflu 75 mg p.o. twice a day for additional two days 36 Discharge Statement: "Patient was advised to return to the ER or call 911 if any headaches, dizziness, shortness of breath, chest pain, abdominal pain, bleeding, fevers, or worsening of medical condition. Patient was counseled about treatment plan, medications, possible side effects, patientverbalized understanding. All questions were answered to the best of my ability. This discharge took greater then 30 minutes in planning, reviewing documentation, counseling the patient, and discussing with other team members." ASSESSMENT ASSESSMENT Assessment Acute on chronic Hypoxic Respiratory Failure Date of Service: Feb 02, 2024 Billing Provider: ZI UMAÑA NP Common Visit Codes: 85542-GUN/OBS DISCH DAY >30min ZI UMAÑA NP Feb 02, 2024 14:36
--- NOTE | 2024-02-03 10:17 | ECG ---
[facility] Test Date: 2024-01-30 Test Time: 15:38:50 Pat Name: AKIKO VIDAL Department: ED Room: 0235T Gender: F Barge Hand: LATRICE : 1970 Requested By: MUSA DELANEY Order Number: [id number] Reading MD: Measurements Intervals [place] Rate: 75 P: 67 DE: 164 QRS: 90 QRSD: 137 T: 261 QT: 369 QTc: 413 Interpretive Statements Sinus rhythm Biatrial enlargement RBBB and LPFB Repol abnrm suggests ischemia, diffuse leads Baseline wander in lead(s) II,III,aVF,V1 Please click the below link to view image of tracing.
== END 2024-02-02 19:30 | disposition home or self-care (01) | DRG 194 ==
LOC: ER 18:49 → TELE 22:11 → TELE-EAST 01-30 23:32
PROVIDERS: ADMIT Nurse Practitioner Family; ATTEND Nurse Practitioner Acute Care
DX: I11.0 Hypertensive heart disease with heart failure (principal); J96.21 Acute and chronic respiratory failure with hypoxia; J10.08 Influenza due to other identified influenza virus with other specified pneumonia; I21.A1 Myocardial infarction type 2; I27.20 Pulmonary hypertension, unspecified; Z79.01 Long term (current) use of anticoagulants; I48.0 Paroxysmal atrial fibrillation; I50.23 Acute on chronic systolic (congestive) heart failure; J12.9 Viral pneumonia, unspecified; J44.1 Chronic obstructive pulmonary disease with (acute) exacerbation; J44.0 Chronic obstructive pulmonary disease with (acute) lower respiratory infection; Z20.822 Contact with and (suspected) exposure to COVID-19; E78.5 Hyperlipidemia, unspecified; E11.9 Type 2 diabetes mellitus without complications; I07.1 Rheumatic tricuspid insufficiency; I37.1 Nonrheumatic pulmonary valve insufficiency; M06.9 Rheumatoid arthritis, unspecified; Z99.81 Dependence on supplemental oxygen; Z83.3 Family history of diabetes mellitus; Z86.711 Personal history of pulmonary embolism; Z91.199 Patient's noncompliance with other medical treatment and regimen due to unspecified reason; Z79.84 Long term (current) use of oral hypoglycemic drugs; Z79.899 Other long term (current) drug therapy
CPT/HCPCS: 36415; 71045; 80048; 80053; 80162; 82565; 82962; 83880; 84484; 85025; 87426; 87804; 93005; 93306; 94640; 99291; G0378; J1815; J3490

== ENCOUNTER 2024-06-13 23:36 | Inpatient (IN) | payer MEDICAID ==
[~2024-06-13] VITALS: Ht 149.9 cm; Wt 56.1 kg
[~2024-06-13 23:36] MED LIST changes: -ACE3T PO; -CEPH500C PO; +DEXT1SYP9 PO; +FLUT100M INH; +GUAI100S6 PO; +HYDR200T36 PO; -LEVO500T91 PO; -METH4PAK PO; -PRED20TA2 PO; +TAMIFLU PO; -TRIA0.02 TOP
[2024-06-14] VITALS (9 sets, daily range): BP systolic 113–150; BP diastolic 74–98; PULSE 64–84; RESP 10–20; TEMP 97.5–98; O2SAT 92–97
[2024-06-14] MEDS: ASPirin 325 MG TAB PO ONE (00:15)
[2024-06-14 00:29] LABS: Basophils # (auto) 0 10 ^3/uL (0-0.2); Basophils % (auto) 0.2 % (0.0-2.0); Eosinophils # (auto) 0 10 ^3/uL (0-0.8); Eosinophils % (auto) 0.8 % (0.0-7.0); Hematocrit 51.6 % (36.0-46.0); Hemoglobin 17.4 g/dL (12.2-16.2); Lymphocytes # (auto) 1.2 10 ^3/uL (0.4-5.4); Mean Corpuscular Hemoglobin 33.4 pg (28.0-32.0); Mean Corpuscular Hgb Conc. 33.8 g/dL (32.0-36.0); Mean Corpuscular Volume 98.8 fL (80.0-100.0); Monocytes # (auto) 0.6 10 ^3/uL (0-1.3); Monocytes % (auto) 11.3 % (0.0-12.0); Neutrophils # (auto) 3.6 10 ^3/uL (1.6-8.6); Neutrophils % (auto) 65.7 % (37.0-80.0); Platelet Count (auto) 196 10^3/uL (140-450); Red Blood Cells 5.22 10^6/uL (4.0-5.20); Red Cell Distribution Width 15.4 % (11.8-14.3); White Blood Cell 5.5 10^3/uL (4.4-10.8)
[2024-06-14 00:39] LABS: Sodium 143 mmol/L (136-145)
[2024-06-14 00:40] LABS: Anion Gap 8 (5-15); Calcium 9.5 mg/dL (8.7-10.4); Carbon Dioxide 26 mmol/L (20-31)
[2024-06-14 00:42] LABS: Chloride 109 mmol/L (98-107)
--- NOTE | 2024-06-14 00:43 | DVH ---
EXAM: XY CHEST PORTABLE CLINICAL HISTORY: CP TECHNIQUE: Single AP view of the chest WID: COMPARISON: XY CHEST PORTABLE on DOS: 01/31/24, FINDINGS: Lines and tubes: None Chest: Cardiomegaly without pulmonary vascular congestion. Dilatation of the main pulmonary artery. Calcifi ed plaque projects over the aortic arch. No pleural effusion, pneumothorax, or consolidation. Linear bibasilar scarring or atelectasis. The osseous structures are grossly intact. IMPRESSION: 1. Cardiomegaly without CHF or pneumonia. 2. Dilated main pulmonary artery which can be seen in the setting of pulmonary hypertension.
[2024-06-14 00:45] LABS: BUN/Creatinine Ratio 17.6 (10.0-20.0); Blood Urea Nitrogen 15 mg/dL (9-23); Glucose 86 mg/dL (74-106)
--- NOTE | 2024-06-14 02:36 | ED.PDOC ---
History of Present Illness HPI Comments 54 y/o F presents with c/o chest and bilateral arm pain, today. Patient endorses on unprovoked onset of symptoms, while at rest, at home at 2255, this evening. She comments on also on having tingling and burning sensations to her left and right arm, respectively. Patient endorses on having an extensive cardiac history, with similar chest pain in the past before. She denies any shortness of breath, palpitations, nausea, vomiting, or other associated symptoms or modifier at this time. Chief Complaint: Chest Pain Time Seen by MD: 23:30 Primary Care Provider: JOANA Reviewed Notes: Nurses Notes, Medications, Allergies Allergies: Coded Allergies: Nitroglycerin (Verified Allergy, Unknown, 04/30/18) Home Meds Active Scripts Dextromethorphan-Guaifenesin (Robitussin-Dm) 10 Ml Sr, 10 ML PO Q4HP PRN for 5 D ays, #240 SYP Prov:ZI UMAÑA INTERPRETATIVE DANCER 02/02/24 Oseltamivir Phosphate (Tamiflu) 75 Mg Cap, 75 MG PO BID for 2 Days, #4 CAP Prov:ZI UMAÑA INTERPRETATIVE DANCER 02/02/24 Sildenafil Citrate (Revatio) 20 Mg Tab, 20 MG PO TID@08,14,20 for 30 Days, #90 TAB Prov:LOYD BOLAÑOS INTERPRETATIVE DANCER 04/06/22 Reported Medications Guaifenesin-Codeine (Robitussin/Codeine) 10 Ml So, 5 ML PO Q6HR for 5 Days, #120 ML 02/02/24 Trazodone Hcl (Trazodone Hcl) 50 Mg Tab, 1 TAB PO DAILY for 90 Days, #90 02/02/24 Budesonide-Formoterol Fumarate (Budesonide/Formoterol Fum 160-4.5 Mcg/Act) 1 Aer Aer, 1 AER IN UD for 90 Days, #30.6 02/02/24 Fluticasone-Salmeterol (Advair Diskus 100-50 Mcg/Dose) 1 Aer Aer, 1 PUFF INH BID for 30 Days, #60 02/02/24 Albuterol Sulfate (Albuterol Sulfate Hfa) 108 Mcg/Act Aer, 2 PUFF INH Q4HR PRN for 50 Days, #54 11/18/24 Prednisone (Prednisone) 10 Mg Tab, 4 TAB PO DAILY for 7 Days, #28 02/02/24 Digoxin (Digoxin) 125 Mcg Tab, 1 TAB PO DAILY for 90 Days, #90 08/21/23 Spironolactone (Spironolactone) 25 Mg Tab, 1 TAB PO BID 04/03/22 Apixaban Base (ELIQUIS) 2.5 Mg Tab, 1 TAB PO BID 04/03/22 Metformin Hydrochloride (Metformin Hydrochloride) 500 Mg Tab, 1 TAB PO BID for 90 Days, #180 04/03/22 Information Source: Patient Mode of Arrival: Ambulatory Past Medical History PAST MEDICAL HISTORY: AFIB (paroxysmal), Arthritis, Asthma, CHF (acute on chronic systolic), DM, High Lipids, HTN (primary and pulmonary), HI (NSTEMI type 2 secondary to demand ischemia), PE Past Medical History (Other): Acute on chronic Hypoxic Respiratory Failure Influenza A viral pneumonia Surgical History: Denies all surgeries TECHNICAL ASST History: No Pertinent TECHNICAL ASST History Family History Family History: Reviewed,noncontributory to illness Social History Smoker: Non-Smoker Alcohol: Denies ETOH Use Drugs: Denies Drug Use Lives In: Home All Other Systems: Reviewed and Negative (Comprehensive systems review obtained and negative except for what is stated in the HPI.) Physical Exam General Appearance: No Apparent Distress, Normal HEENT: Normal ENT Inspection, Pharynx Normal, TMs Normal Neck: Full Range of Motion, Non-Tender, Normal, Normal Inspection Respiratory: Chest Non-Tender, Lungs Clear, No Accessory Muscle Use, No Respiratory Distress, Normal Breath Sounds Cardiovascular: No Edema, No JVD, No Murmur, No Gallop, Normal Peripheral Pulses, Regular Rate/Rhythm Breast Exam: Deferred Gastrointestinal: No Organomegaly, Non Tender, No Pulsatile Mass, Normal Bowel Sounds, Soft Genitalia: Deferred Pelvic: Deferred Rectal: Deferred Extremities: No calf tenderness, Normal capillary refill, Normal inspection, Normal range of motion, Non-tender, No pedal edema Musculoskeletal : Apperance: Normal Neurologic: Alert, cushion padder II-XII nml as Tested, No Motor Deficits, Normal Affect, Normal Mood, No Sensory Deficits Cerebellar Function: Normal Reflexes: Normal Skin: Dry, Normal Color, Warm Lymphatic: No Adenopathy Was a procedure done? Was a procedure done?: No EKG EKG #1: Pulse Rate (adult): 83 [place]: Normal Cardiac Rhythm: NSR Block: None Hypertrophy: None ST: Normal EKG #2: Pulse Rate (adult): 80 [place]: Normal Cardiac Rhythm: NSR Block: None Hypertrophy: None ST: Normal Differential Dx Considerations may include: HI, PE, ACS, costochondritis, pericarditis, viral syndrome, URI, among others X-Ray, Labs, Meds, VS Vital Signs Date Time Temp Pulse Resp B/P (MAP) Pulse Ox O2 Delivery O2 Flow Rate FiO2 06/14/24 02:36 80 06/14/24 01:43 80 06/14/24 00:17 98.3 82 19 144/86 (105) 100 98.3 06/14/24 00:02 98.5 89 20 165/116 (132) 95 98.5 Lab Test 06/14/24 00:43 06/13/24 23:40 Range/Units Troponin I High Sensitivity 20 22 </=34 ng/L White Blood Count 5.5 4.4-10.8 10^3/uL Red Blood Count 5.22 H 4.0-5.20 10^6/uL Hemoglobin 17.4 H 12.2-16.2 g/dL Hematocrit 51.6 H 36.0-46.0 % Mean Corpuscular Volume 98.8 80.0-100.0 fL Mean Corpuscular Hemoglobin 33.4 H 28.0-32.0 pg Mean Corpuscular Hemoglobin Concent 33.8 32.0-36.0 g/dL Red Cell Distribution Width 15.4 H 11.8-14.3 % Platelet Count 196 140-450 10^3/uL Mean Platelet Volume 7.8 6.9-10.8 fL Neutrophils (%) (Auto) 65.7 37.0-80.0 % Lymphocytes (%) (Auto) 22.0 10.0-50.0 % Monocytes (%) (Auto) 11.3 0.0-12.0 % Eosinophils (%) (Auto) 0.8 0.0-7.0 % Basophils (%) (Auto) 0.2 0.0-2.0 % Neutrophils # (Auto) 3.6 1.6-8.6 10 ^3/uL Lymphocytes # (Auto) 1.2 0.4-5.4 10 ^3/uL Monocytes # (Auto) 0.6 0-1.3 10 ^3/uL Eosinophils # (Auto) 0 0-0.8 10 ^3/uL Basophils # (Auto) 0 0-0.2 10 ^3/uL Nucleated Red Blood Cells 0.0 % Sodium Level 143 136-145 mmol/L Potassium Level 4.0 3.5-5.1 mmol/L Chloride Level 109 H 98-107 mmol/L Carbon Dioxide Level 26 20-31 mmol/L Anion Gap 8 5-15 Blood Urea Nitrogen 15 9-23 mg/dL Creatinine 0.85 0.550-1.02 mg/dL Glomerular Filtration Rate Calc 81 >90 mL/min BUN/Creatinine Ratio 17.6 10.0-20.0 Serum Glucose 86 74-106 mg/dL Calcium Level 9.5 8.7-10.4 mg/dL Current Medications Medications (Trade) Dose Ordered Sig/Stephanie Route Start Time Stop Time Status Last Admin Aspirin 325 mg ONCE ONCE PO 06/14/24 00:00 06/14/24 00:01 DC 06/14/24 00:15 [place] [address] Ph: [phone] DIAGNOSTIC IMAGING Diagnostic Imaging Report : [id number] Signed PATIENT: AKIKO VIDAL ACCT: [id number] UNIT: [id number] : 1970 LOC: ER ROOM / BED: / AGE / SEX: 54 / F ADM STATUS: REG ER SERVICE [id number] ORDERING PHYSICIAN: MANDIE ROGERS MD PROCEDURE(s): CXRP - CHEST PORTABLE REASON: CP ORDER NUMBER(s): [id number], ACCESSION NUMBER(s): [id number] EXAM: XY CHEST PORTABLE CLINICAL HISTORY: CP TECHNIQUE: Single AP view of the chest WID: COMPARISON: XY CHEST PORTABLE on DOS: 01/31/24, FINDINGS: Lines and tubes: None Chest: Cardiomegaly without pulmonary vascular congestion. Dilatation of the main pulmonary artery. Calcified plaque projects over the aortic arch. No pleural effusion, pneumothorax, or consolidation. Linear bibasilar scarring or atelectasis. The osseous structures are grossly intact. IMPRESSION: 1. Cardiomegaly without CHF or pneumonia. 2. Dilated main pulmonary artery which can be seen in the setting of pulmonary hypertension. ATED BY: RADHA IBRAHIM MD DICTATED DATE/TIME: 06/14/2440 SIGNED BY: ARDHA IBRAHIM MD SIGNED DATE/TIME: 06/14/2440 CC: Time of 1ST Reevaluation: 00:00 Reevaluation 1ST: Unchanged Patient Education/Counseling: Diagnosis, Treatment, Prognosis, Need For Follow Up Family Education/Counseling: No Family Present Additional Information Previous visit documents reviewed: January 29, 2024 encounter for acute chest pain The following tests were ordered, and results were reviewed by me: BMP, CBC, troponin, EKG, CXR Additional Information was gathered from interviewing the following independent historians: n/a I reviewed and agreed with the following test results read by other providers: CXR I discussed treatment and results with medical personnel and: Patient Departure 1 Departure Time of Disposition: 02:46 Impression: Primary Impression: Unstable angina Disposition: ADMITTED INPATIENT Admit to: Tele Condition: Serious Discharged With: Self Critical Care Note Critical Care Time?: Yes (55 min-critical care time only) Critical care comment: Due to concerns for patients condition deteriorating, the care required my highest level of attention and readiness to intervene. I assessed the patient, reviewed the medical records, ordered the appropriate tests and treatments, then reassessed for results and responsiveness. I communicated with medical personnel and consultants and formulated a plan of care. Total critical care time excludes any procedures Stability Stability form required: No Heart Score Heart Score: Heart Score Response (Comments) Value History Moderate Suspicious 1 EKG Normal 0 Age 45-64 1 Risk Factors >3 or Hx ASHD 2 Troponin Normal limit 0 Total 4 I personally scribed for MANDIE ROGERS MD ([email or web address]) on 06/14/24 at 02:36. Electronically submitted by Jose Armstrong ([email or web address]). MANDIE ROGERS MD Jun 14, 2024 02:36
[2024-06-14] MEDS ORDERED: ONDANSETRON HCL 4 MG/2 ML VIAL IV PRN ×2 (09:15→11:00)
[2024-06-14] MEDS ORDERED: HYDROcodone-ACET 5/325MG TAB PO PRN (09:15)
[2024-06-14] MEDS ORDERED: DOCUSATE SOD 100 MG CAP PO PRN ×2 (09:15→11:00)
[2024-06-14] MEDS ORDERED: NITROGLYCERIN 0.4 MG SL TAB SL PRN ×2 (09:15→11:00)
[2024-06-14] MEDS ORDERED: MORPHINE SULFATE INJ 2 MG/ml SYRG IV PRN ×2 (09:15→11:00)
[2024-06-14] MEDS ORDERED: ACETAMINOPHEN 325 MG TAB PO PRN ×2 (09:15→11:00)
[2024-06-14] MEDS ORDERED: DEXTROSE (50%) 50ML SYRG IV PRN ×2 (09:15→11:00)
--- NOTE | 2024-06-14 09:19 | DVHHP2 ---
History of Present Illness Reason for Visit: Chest pain History of Present Illness Yoselyn Hollingsworth, is a 54-year-old female with past medical history of pulmonary hypertension, CHF, arthritis, asthma, hyperlipidemia, hypertension, and diabetes, who came in for chest pain. Patient states she began having chest pain last night before bed. She states the chest pain improved when she rested. She states the pain was more of a tightness and she wasn't sure if it was her pulmonary hypertension. A few minutes after the pain decreased she began having numbness and tingling in bilateral upper extremities prompting her to come to the hospital. EKG shows right ventricle enlargement and ST depression. Patient states that she usually has abnormal EKGs, but does not now the specifics. Denies any past history of NE. Last ECHO completed her 01/30/24 shows pulmonary hypertension, right atrium and right ventricle enlargement, increased right ventricle pressure, and EF of 65%. Cardiovascular: AFIB, CHF, HTN, hyperipidemia Pulmonary: Asthma, Other (Pulmonary hypertension) Endocrine: Diabetes Past Surgical History: None Family History: None Smoke: No ALCOHOL: none Drugs: None Lives: with Family Domestic Violence: Neg Review of Systems Constitutional: No: Fever, Chills, Sweats, Weakness, Malaise, Other Eyes: No: Pain, Vision change, Conjunctivae inflammation, Eyelid inflammation, Other, Redness ENT: No: Ear pain, Ear discharge, Nose pain, Nose discharge, Nose congestion, Mouth pain, Mouth swelling, Throat pain, Throat swelling, Other Respiratory: No: Cough, Dry, Shortness of breath, SOB with excertion, Wheezing, Hemoptysis, Pleuritic Pain, Sputum, Wheezing, Other Cardiovascular: Chest Pain (tightness); No: Palpitations, Orthopnea, Paroxysmal Noc. Dyspnea, Edema, Lt Headedness, Other Gastrointestinal: No: Nausea, Vomiting, Abdominal Pain, Diarrhea, Constipation, Melena, Hematochezia, Other Genitourinary: No Dysuria, No Frequency, No Incontinence, No Hematuria, No Retention, No Other Musculoskeletal: No: other, neck pain, shoulder pain, arm pain, back pain, hand pain, leg pain, foot pain Skin: No: Rash, Lesions, Jaundice, Bruising, Other Neurological: Numbness (tingling in bilateral arms); No: Weakness, Incoordination, Change in speech, Confusion, Seizures, Other Allergies: Coded Allergies: Nitroglycerin (Verified Allergy, Unknown, 04/30/18) Exam Vital Signs Vital Signs Date Time Temp Pulse Resp B/P (MAP) Pulse Ox O2 Delivery O2 Flow Rate FiO2 06/14/24 07:50 97.7 75 20 153/102 (119) 95 97.7 06/14/24 07:50 Room Air* 0 21 Labs/Xrays Labs Test 06/14/24 02:56 06/13/24 23:40 Range/Units Troponin I High Sensitivity 20 </=34 ng/L White Blood Count 5.5 4.4-10.8 10^3/uL Red Blood Count 5.22 H 4.0-5.20 10^6/uL Hemoglobin 17.4 H 12.2-16.2 g/dL Hematocrit 51.6 H 36.0-46.0 % Mean Corpuscular Volume 98.8 80.0-100.0 fL Mean Corpuscular Hemoglobin 33.4 H 28.0-32.0 pg Mean Corpuscular Hemoglobin Concent 33.8 32.0-36.0 g/dL Red Cell Distribution Width 15.4 H 11.8-14.3 % Platelet Count 196 140-450 10^3/uL Mean Platelet Volume 7.8 6.9-10.8 fL Neutrophils (%) (Auto) 65.7 37.0-80.0 % Lymphocytes (%) (Auto) 22.0 10.0-50.0 % Monocytes (%) (Auto) 11.3 0.0-12.0 % Eosinophils (%) (Auto) 0.8 0.0-7.0 % Basophils (%) (Auto) 0.2 0.0-2.0 % Neutrophils # (Auto) 3.6 1.6-8.6 10 ^3/uL Lymphocytes # (Auto) 1.2 0.4-5.4 10 ^3/uL Monocytes # (Auto) 0.6 0-1.3 10 ^3/uL Eosinophils # (Auto) 0 0-0.8 10 ^3/uL Basophils # (Auto) 0 0-0.2 10 ^3/uL Nucleated Red Blood Cells 0.0 % Sodium Level 143 136-145 mmol/L Potassium Level 4.0 3.5-5.1 mmol/L Chloride Level 109 H 98-107 mmol/L Carbon Dioxide Level 26 20-31 mmol/L Anion Gap 8 5-15 Blood Urea Nitrogen 15 9-23 mg/dL Creatinine 0.85 0.550-1.02 mg/dL Glomerular Filtration Rate Calc 81 >90 mL/min BUN/Creatinine Ratio 17.6 10.0-20.0 Serum Glucose 86 74-106 mg/dL Calcium Level 9.5 8.7-10.4 mg/dL EXAM: XY CHEST PORTABLE FINDINGS: Lines and tubes: None Chest: Cardiomegaly without pulmonary vascular congestion. Dilatation of the main pulmonary artery. Calcified plaque projects over the aortic arch. No pleural effusion, pneumothorax, or consolidation. Linear bibasilar scarring or atelectasis. The osseous structures are grossly intact. IMPRESSION: 1. Cardiomegaly without CHF or pneumonia. 2. Dilated main pulmonary artery which can be seen in the setting of pulmonary hypertension. Assessment/Plan Assessment/Plan Assessment: Unstable angina, CHF exacerbation, Atrial fibrillation, Hypertension, Hyperlipidemia, Diabetes, Plan: Admit to Tele, Cardiology consult, IV Lasix, Lipid panel, TSH, Breathing treatments, Accu checks Q AC&HS with sliding scale, Home medications reconciled, Plan discussed with: Patient My Orders Orders - VAHE PARKER Procedure Category Date Status Time * Cardiology Consult CONS 06/14/24 Verified 09:15 Admit ADMIT 06/14/24 Verified 09:15 Code Status CODE 06/14/24 Verified 09:15 0.9% Ns 1000 Ml PHA 06/14/24 Verified 09:15 Hydrocodone-Acet PHA 06/14/24 Verified 5/325mg Tab ([place]air 09:15 Ondansetron Hcl PHA 06/14/24 Verified (Zofran) 09:15 Docusate Sodium PHA 06/14/24 Verified Capsule (Colace 09:15 Complete Blood Count LAB 06/15/24 Verified 04:00 Comprehensive LAB 06/15/24 Verified Metabolic Panel 04:00 Npo (Nothing By DIET 06/14/24 Verified Mouth) Diet Breakfast Condition: Critical MAYKEL 06/14/24 Verified 09:15 Acetaminophen Tablet PHA 06/14/24 Verified (Tylenol Tablet) 09:15 Nitroglycerin PHA 06/14/24 Verified Sublingual (Ntrostat 09:15 Morphine Sulfate PHA 06/14/24 Verified Injection 09:15 Stat Ekg For Chest MAYKEL 06/14/24 Verified Pain 09:15 Notify Md Of Changes [facility] 06/14/24 Verified From Base 09:15 Textile Technical Officer For [facility] 06/14/24 Verified 24 Hours 09:15 Emergency Dysrhythmia [facility] 06/14/24 Verified Protocol 09:15 Rhythm Strips Once [facility] 06/14/24 Verified Every Shift 09:15 Oxygen By Nasal RT 06/14/24 Verified Cannula 09:15 Glucose Blood PHA 06/14/24 Verified (Accu-Chek Comfort 12:00 Mild Sliding Scale [facility] 06/14/24 Verified Npo - Q6hr 12:00 Dextrose 50% Syringe [facility] 06/14/24 Verified 09:15 Apixaban (Eliquis) [facility] 06/14/24 Verified 10:00 Digoxin Tablet [facility] 06/14/24 Verified (Lanoxin Tablet) 10:00 Sildenafil Citrate [facility] 06/14/24 Verified (Revatio) 14:00 Spironolactone [facility] 06/14/24 Verified (Aldactone) 10:00 Trazodone Hcl [facility] 06/14/24 Verified (Desyrel) 10:00 Date of Service: Jun 14, 2024 Billing Provider: VAHE PARKER Common Visit Codes: [id number] INP/OBS CARE (MOD) VAHE PARKER Jun 14, 2024 09:19
[2024-06-14] MEDS: SODIUM CHLORIDE 0.9% 1,000 ML IV SCH ×2 (09:55→12:17)
[2024-06-14] MEDS ORDERED: APIXABAN 2.5 MG TAB PO SCH (10:00)
[2024-06-14] MEDS ORDERED: SPIRONOLACTONE 25 MG TAB PO SCH (10:00)
[2024-06-14] MEDS ORDERED: traZODone HCL 50 MG TAB PO SCH (10:00)
[2024-06-14] MEDS ORDERED: DIGOXIN 0.125 MG TAB PO SCH (10:00)
--- NOTE | 2024-06-14 11:15 | ECG ---
[facility] Test Date: 2024-06-13 Test Time: 23:43:29 Pat Name: AKIKO VIDAL Department: ER Room: [address] [place] [address] 6 Gender: F Director Security Management: TOBIAS : 1970 Requested By: EMERGENCY EMERGENCY Order Number: [id number] Reading MD: Ezekiel Baumann Measurements Intervals [place] Rate: 83 P: 87 PA: 180 QRS: 90 QRSD: 133 T: -59 QT: 411 QTc: 483 Interpretive Statements Sinus rhythm Atrial premature complex Biatrial enlargement RBBB and LPFB ST depression, consider ischemia, diffuse lds Electronically Signed On 06-16-2024 22:04:40 PDT by Ezekiel Baumann Please click the below link to view image of tracing.
[2024-06-14] MEDS: FUROSEMIDE 40 MG/4 ML VIAL IV ONE ×2 (11:23→11:30)
[2024-06-14] MEDS: InsuLIN REG 1unit/0.01ml Soln (100units/ml) SC SCH (11:28)
[2024-06-14] MEDS: ACCU-CHEK COMFORT CURVE STRIP VI SCH (11:28)
[2024-06-14] MEDS ORDERED: InsuLIN REG 1unit/0.01ml Soln (100units/ml) SC SCH (12:00)
[2024-06-14] MEDS ORDERED: ACCU-CHEK COMFORT CURVE STRIP VI SCH (12:00)
[2024-06-14] MEDS: SILDENAFIL CITRATE 20 MG TAB PO SCH (13:34)
[2024-06-14] MEDS ORDERED: SILDENAFIL CITRATE 20 MG TAB PO SCH (14:00)
--- NOTE | 2024-06-14 15:50 | DVHINCON2 ---
DATE OF CONSULTATION: 06/14/2024 REFERRING PHYSICIAN: Dr. Owens. CONSULTING PHYSICIAN: Jessy Coley MD INDICATION: Chest pain. HISTORY OF PRESENT ILLNESS: The patient is a 54-year-old female with history of severe pulmonary hypertension, on sildenafil; history of hypertension, diabetes, who presented to the hospital with complaints of chest tightness and tingling sensation in upper extremities. Troponin has been negative. Currently, denies any chest pain. Currently, the patient is on IV Lasix with improvement in her chest tightness. PAST MEDICAL HISTORY: * Hypertension. * Diabetes. * Severe pulmonary hypertension. * AFib. MEDICATIONS: Per med rec. ALLERGIES: No known drug allergies. PHYSICAL EXAMINATION: GENERAL: Alert and awake, in no form of cardiopulmonary distress. VITAL SIGNS: Blood pressure 132/91, pulse 82 per minute, saturation 92%. HEENT: No carotid bruits. No jugular venous distention. CHEST: Bilateral air entry. CARDIOVASCULAR: Submucosal and palpable. Normal S1 and S2. EXTREMITIES: Trace edema. DIAGNOSTIC DATA: Troponin negative x3. Sodium 143, potassium 4.8, creatinine 0.8. White count 5, hemoglobin 17, platelets 196. ASSESSMENT: * Chest pain typical troponin. The patient had an angiogram done at this hospital about two years ago which showed normal coronaries. * Right heart failure. * Severe pulmonary hypertension. * Diabetes. * Systemic hypertension. * History of atrial fibrillation. RECOMMENDATIONS: * Agree with IV Lasix. * Once well diuresed, switch to p.o. * Continue her Eliquis for stroke risk reduction. * Monitor electrolytes closely. * Monitor input and output closely. * Continue telemetry monitoring. Thank you for allowing me to participate in the care of this patient. MD ALEXANDER Peck/SAROJ/AMI TID: [id number] RECEIPT: [id number]
[2024-06-14] MEDS: IPRATROPIUM BROM 0.5 MG/2.5ML INH SOL NEB SCH (18:59)
[2024-06-14] MEDS: ALBUTEROL SULF 2.5 MG/0.5ML(0.5%) NEB SOLN NEB SCH (19:00)
[2024-06-14] MEDS: HYDROcodone-ACET 5/325MG TAB PO PRN (20:18)
[2024-06-14] MEDS: APIXABAN 2.5 MG TAB PO SCH (21:23)
[2024-06-14] MEDS: SPIRONOLACTONE 25 MG TAB PO SCH (21:24)
[2024-06-15] VITALS (8 sets, daily range): BP systolic 104–133; BP diastolic 71–85; PULSE 64–86; RESP 18–19; TEMP 97.4–98; O2SAT 90–98
[2024-06-15 07:15] LABS: Basophils # (auto) 0 10 ^3/uL (0-0.2); Basophils % (auto) 0.3 % (0.0-2.0); Eosinophils # (auto) 0.1 10 ^3/uL (0-0.8); Eosinophils % (auto) 1.3 % (0.0-7.0); Hematocrit 50.4 % (36.0-46.0); Hemoglobin 16.7 g/dL (12.2-16.2); Lymphocytes # (auto) 1.2 10 ^3/uL (0.4-5.4); Lymphocytes % (auto) 27.8 % (10.0-50.0); Mean Corpuscular Hemoglobin 32.5 pg (28.0-32.0); Mean Corpuscular Hgb Conc. 33.1 g/dL (32.0-36.0); Mean Corpuscular Volume 98.2 fL (80.0-100.0); Monocytes # (auto) 0.6 10 ^3/uL (0-1.3); Monocytes % (auto) 13.3 % (0.0-12.0); Neutrophils # (auto) 2.6 10 ^3/uL (1.6-8.6); Neutrophils % (auto) 57.3 % (37.0-80.0); Nucleated Red Blood Cells % 0.3 %; Platelet Count (auto) 184 10^3/uL (140-450); Red Blood Cells 5.13 10^6/uL (4.0-5.20); Red Cell Distribution Width 15.1 % (11.8-14.3); White Blood Cell 4.5 10^3/uL (4.4-10.8)
[2024-06-15 07:40] LABS: Alanine Aminotransferase 15 U/L (7-40); Albumin 3.8 g/dL (3.2-4.8); Anion Gap 7 (5-15); Aspartate Aminotransferase 22 U/L (13-40); BUN/Creatinine Ratio 24.7 (10.0-20.0); Blood Urea Nitrogen 18 mg/dL (9-23); Calcium 9.1 mg/dL (8.7-10.4); Carbon Dioxide 26 mmol/L (20-31); Glucose 86 mg/dL (74-106); Sodium 141 mmol/L (136-145); Total Protein 5.9 g/dL (5.7-8.2)
[2024-06-15 07:45] LABS: Alkaline Phosphatase 35 U/L (46-116); Bilirubin, Total 1.4 mg/dL (0.2-1.0); Chloride 108 mmol/L (98-107)
[2024-06-15 08:04] LABS: Triglycerides 72 mg/dL (< 150)
[2024-06-15 08:06] LABS: Cholesterol 148 mg/dL (< 200)
[2024-06-15 08:13] LABS: HDL Cholesterol 35 mg/dL (40-59); LDL Cholesterol 105 mg/dL (< 100)
[2024-06-15] MEDS ORDERED: traZODone HCL 50 MG TAB PO SCH (10:00)
[2024-06-15] MEDS: FUROSEMIDE 20 MG/2 ML VIAL IV SCH (11:51)
[2024-06-15] MEDS: DIGOXIN 0.125 MG TAB PO SCH (11:51)
--- NOTE | 2024-06-15 11:57 | DVHPN2 ---
Subjective 54-year-old female with a history of severe pulmonary hypertension came with chest pain and shortness of breaths She has home O2 She is on 2 L nasal cannula now and she feels better Changes from previous H/P or p: Changes Eyes: No Pain, No Vision change, No Conjunctivae inflammation, No Eyelid inflammation, No Other, No Redness ENT: No Ear pain, No Ear discharge, No Nose pain, No Nose discharge, No Nose congestion, No Mouth pain, No Mouth swelling, No Throat pain, No Throat swelling, No Other Cardiovascular: Chest Pain (tightness); No Palpitations, No Orthopnea, No Paroxysmal Noc. Dyspnea, No Edema, No Lt Headedness, No Other Respiratory: No Cough, No Dry, No Shortness of breath, No SOB with excertion, No Wheezing, No Hemoptysis, No Pleuritic Pain, No Sputum, No Other Gastrointestinal: No Nausea, No Vomiting, No Abdominal Pain, No Diarrhea, No Constipation, No Melena, No Hematochezia, No Other Genitourinary: No Dysuria, No Frequency, No Incontinence, No Hematuria, No Retention, No Other Musculoskeletal: No other, No neck pain, No shoulder pain, No arm pain, No back pain, No hand pain, No leg pain, No foot pain Skin: No Rash, No Lesions, No Jaundice, No Bruising, No Other Objective Vitals Vital Signs Date Time Temp Pulse Resp B/P (MAP) Pulse Ox O2 Delivery O2 Flow Rate FiO2 06/15/24 08:58 97.5 69 18 133/78 (96) 97 97.5 06/14/24 23:00 2.0 28 06/14/24 20:00 Room Air* Intake/Output Intake and Output 06/15/24 07:00 Intake Total 810 ml Output Total 300 ml Balance 510 ml Intake Oral 810 ml Output Urine Total 300 ml # Voids 9 General Appearance: Alert, Oriented X3 Lungs: Clear to auscultation, Normal air movement Cardiovascular: Regular rate, Normal S1, Normal S2 Abdomen: Normal bowel sounds, Soft, No tenderness Extremities: Other (Trace edema bilaterally in the lower extremities) Medications Current Medications Medications Dose Ordered Sig/Stephanie Route Start Time Stop Time Status Last Admin Dose Admin Acetaminophen/ Hydrocodone Bitart 1 tab Q4HP PRN PO 06/14/24 11:00 06/14/24 20:18 1 TAB Ondansetron HCl 4 mg Q4HP PRN IV 06/14/24 11:00 Docusate Sodium 100 mg BIDPRN PRN PO 06/14/24 11:00 Acetaminophen 650 mg Q6HP PRN PO 06/14/24 11:00 Nitroglycerin 0.4 mg Q5MINP PRN SL 06/14/24 11:00 Hold Morphine Sulfate 2 mg Q30M PRN IV 06/14/24 11:00 Dextrose 50 ml UD PRN IV 06/14/24 11:00 Apixaban 2.5 mg BID PO 06/14/24 22:00 06/14/24 21:23 2.5 MG Digoxin 0.125 mg DAILY PO 06/15/24 10:00 Sildenafil Citrate 20 mg TID@08,14,20 PO 06/14/24 14:00 06/14/24 21:24 20 MG Spironolactone 25 mg BID PO 06/14/24 22:00 06/14/24 21:24 25 MG Trazodone HCl 50 mg DAILY PO 06/15/24 10:00 Furosemide 20 mg BIDD IV 06/15/24 08:00 Ipratropium Merkel 0.5 mg Q6HWA NEB 06/14/24 18:00 Albuterol 2.5 mg Q6HWA NEB 06/14/24 18:00 Diagnostic Test (Pha) 1 strip ACHS 06/15/24 17:00 Insulin Human Regular ACHS SC 06/15/24 17:00 Laboratory Results Laboratory Tests 06/15/24 06:27 Chemistry Test 06/15/24 06:27 Albumin 3.8 g/dL (3.2-4.8) Calcium Level 9.1 mg/dL (8.7-10.4) Total Protein 5.9 g/dL (5.7-8.2) Lipid panel Test 06/15/24 06:27 Cholesterol Level 148 mg/dL (< 200) HDL Cholesterol 35 mg/dL (40-59) L Triglycerides Level 72 mg/dL (< 150) LFT Test 06/15/24 06:27 Alanine Aminotransferase (ALT) 15 U/L (7-40) Alkaline Phosphatase 35 U/L (46-116) L Aspartate Amino Transferase (AST) 22 U/L (13-40) Total Bilirubin 1.4 mg/dL (0.2-1.0) H HgA1c, TSH Test 06/15/24 06:27 Thyroid Stimulating Hormone (TSH) 0.81 uIU/mL (0.55-4.78) Assessment/Plan Assessment/Plan Acute hypoxic respiratory failure Severe pulmonary hypertension Type 2 diabetes Hypertension Atrial fibrillation Right heart failure, diastolic Chronic respiratory failure on home O2 Plan Sildenafil Aldactone Lasix Digoxin Eliquis Insulin Stopped the IV fluids Monitor closely Cardiology consult Full code Advance directives discussed for 20 minute Plan discussed with: Patient My Orders Orders - FRANDY GARLAND MD Procedure Category Date Status Time Glucose Blood PHA 06/15/24 In Process (Accu-Chek Comfort 17:00 Insulin R (Human) PHA 06/15/24 In Process (Insulin R) 17:00 Date of Service: Jun 15, 2024 Billing Provider: FRANDY GARLAND MD Common Visit Codes: [id number] INP/OBS CARE(HIGH) Secondary Visit Codes: [id number] CARE PLAN 30 MINUTES FRANDY GARLAND MD Jun 15, 2024 11:57
[2024-06-15] MEDS: InsuLIN REG 1unit/0.01ml Soln (100units/ml) SC SCH (17:00)
[2024-06-15] MEDS: ACCU-CHEK COMFORT CURVE STRIP VI SCH (17:00)
[2024-06-15] MEDS: traZODone HCL 50 MG TAB PO SCH (21:19)
[2024-06-16 01:00] VITALS: BP 115/71; PULSE 80; RESP 19; TEMP 98.1; O2SAT 95
[2024-06-16 05:00] VITALS: BP 123/78; PULSE 70; RESP 20; TEMP 97.4; O2SAT 95
[2024-06-16 08:00] VITALS: PULSE 84
[2024-06-16 08:56] VITALS: BP 122/75; PULSE 74; RESP 18; TEMP 97.8; O2SAT 94
--- NOTE | 2024-06-16 12:32 | ECG ---
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
--- NOTE | 2024-06-16 12:32 | ECG ---
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
[2024-06-16 12:54] VITALS: BP 116/77; PULSE 82; RESP 18; TEMP 97.7; O2SAT 92
[2024-06-16] MEDS ORDERED: SPIR25TA PO (14:23)
[2024-06-16] MEDS ORDERED: DIGO1TAB48 PO (14:23)
[2024-06-16] MEDS ORDERED: TRAZ-227 PO (14:23)
[2024-06-16] MEDS ORDERED: SILD20TA PO (14:23)
[2024-06-16] MEDS ORDERED: FURO1TAB31 PO (14:23)
[2024-06-16] MEDS ORDERED: APIX2.5T PO (14:23)
--- NOTE | 2024-06-16 16:41 | DVHDS2 ---
Discharge Summary Date of Admission Jun 14, 2024 at 09:15 Date of Discharge: Jun 16, 2024 Labs/Diagnostic Data: Laboratory Results Test 06/16/24 11:18 06/15/24 06:27 06/14/24 02:56 POC Glucose 195 mg/dl (70-106) White Blood Count 4.5 10^3/uL (4.4-10.8) Red Blood Count 5.13 10^6/uL (4.0-5.20) Hemoglobin 16.7 g/dL (12.2-16.2) Hematocrit 50.4 % (36.0-46.0) Mean Corpuscular Volume 98.2 fL (80.0-100.0) Mean Corpuscular Hemoglobin 32.5 pg (28.0-32.0) Mean Corpuscular Hemoglobin Concent 33.1 g/dL (32.0-36.0) Red Cell Distribution Width 15.1 % (11.8-14.3) Platelet Count 184 10^3/uL (140-450) Mean Platelet Volume 7.9 fL (6.9-10.8) Neutrophils (%) (Auto) 57.3 % (37.0-80.0) Lymphocytes (%) (Auto) 27.8 % (10.0-50.0) Monocytes (%) (Auto) 13.3 % (0.0-12.0) Eosinophils (%) (Auto) 1.3 % (0.0-7.0) Basophils (%) (Auto) 0.3 % (0.0-2.0) Neutrophils # (Auto) 2.6 10 ^3/uL (1.6-8.6) Lymphocytes # (Auto) 1.2 10 ^3/uL (0.4-5.4) Monocytes # (Auto) 0.6 10 ^3/uL (0-1.3) Eosinophils # (Auto) 0.1 10 ^3/uL (0-0.8) Basophils # (Auto) 0 10 ^3/uL (0-0.2) Nucleated Red Blood Cells 0.3 % Sodium Level 141 mmol/L (136-145) Potassium Level 4.0 mmol/L (3.5-5.1) Chloride Level 108 mmol/L (98-107) Carbon Dioxide Level 26 mmol/L (20-31) Anion Gap 7 (5-15) Blood Urea Nitrogen 18 mg/dL (9-23) Creatinine 0.73 mg/dL (0.550-1.02) Glomerular Filtration Rate Calc 98 mL/min (>90) BUN/Creatinine Ratio 24.7 (10.0-20.0) Serum Glucose 86 mg/dL (74-106) Calcium Level 9.1 mg/dL (8.7-10.4) Total Bilirubin 1.4 mg/dL (0.2-1.0) Aspartate Amino Transferase (AST) 22 U/L (13-40) Alanine Aminotransferase (ALT) 15 U/L (7-40) Alkaline Phosphatase 35 U/L (46-116) Total Protein 5.9 g/dL (5.7-8.2) Albumin 3.8 g/dL (3.2-4.8) Triglycerides Level 72 mg/dL (< 150) Cholesterol Level 148 mg/dL (< 200) LDL Cholesterol 105 mg/dL (< 100) HDL Cholesterol 35 mg/dL (40-59) Thyroid Stimulating Hormone (TSH) 0.81 uIU/mL (0.55-4.78) Troponin I High Sensitivity 20 ng/L (</=34) Other Laboratory Tests 06/15/24 06:27 Brief Hx & Hospital Course: Final diagnoses: Acute hypoxic respiratory failure Severe pulmonary hypertension Type 2 diabetes Hypertension Atrial fibrillation Right heart failure, diastolic Chronic respiratory failure on home O2 54-year-old female with a history of severe pulmonary hypertension came with chest pain and shortness of breaths She has home O2 She is doing better now Resume the home medications She said she needs refills on all her home medications Refills were sent to her pharmacy Stable for discharge Condition at Discharge: Stable Final Diagnosis/Problems List Acute hypoxic respiratory failure Severe pulmonary hypertension Type 2 diabetes Hypertension Atrial fibrillation Right heart failure, diastolic Chronic respiratory failure on home O2 Discharge Disposition: Home SNF Discharge Will this Physician continue t: No Discharge Instruct/Medications Diet: Consistent carbohydrate, Cardiac 2g Na,low cholest Activity: Light activity Follow Up/Referral: PCP TIM Medications: Same home meds Discharge Statement: "Patient was advised to return to the ER or call 911 if any headaches, dizziness, shortness of breath, chest pain, abdominal pain, bleeding, fevers, or worsening of medical condition. Patient was counseled about treatment plan, medications, possible side effects, patientverbalized understanding. All questions were answered to the best of my ability. This discharge took greater then 30 minutes in planning, reviewing documentation, counseling the patient, and discussing with other team members." ASSESSMENT ASSESSMENT Assessment Acute hypoxic respiratory failure Severe pulmonary hypertension Type 2 diabetes Hypertension Atrial fibrillation Right heart failure, diastolic Chronic respiratory failure on home O2 Date of Service: Jun 16, 2024 Billing Provider: FRANDY GARLAND MD Common Visit Codes: 80893-DOP/OBS DISCH DAY >30min FRANDY GARLAND MD Jun 16, 2024 16:41
[2024-06-16 17:10] VITALS: BP 120/79; PULSE 83; RESP 18; TEMP 98; O2SAT 91
== END 2024-06-16 18:30 | disposition home or self-care (01) | DRG 207 ==
LOC: ER 23:36 → OVERFLOW 06-14 09:15 → ER 06-14 09:18 → TELE-EAST 06-14 10:05
PROVIDERS: ADMIT Internal Medicine Geriatric Medicine; ATTEND Internal Medicine Geriatric Medicine
DX: I27.20 Pulmonary hypertension, unspecified (principal); J96.21 Acute and chronic respiratory failure with hypoxia; I50.32 Chronic diastolic (congestive) heart failure; Z99.81 Dependence on supplemental oxygen; E78.5 Hyperlipidemia, unspecified; E11.9 Type 2 diabetes mellitus without complications; J45.909 Unspecified asthma, uncomplicated; I48.0 Paroxysmal atrial fibrillation; I25.2 Old myocardial infarction; Z79.84 Long term (current) use of oral hypoglycemic drugs; Z79.51 Long term (current) use of inhaled steroids; Z79.899 Other long term (current) drug therapy; Z88.8 Allergy status to other drugs, medicaments and biological substances
CPT/HCPCS: 36415; 71045; 80048; 80053; 80061; 82962; 84443; 84484; 85025; 93005; 99291; G0378; J1815

== ENCOUNTER 2025-01-02 20:04 | Inpatient (IN) | payer MEDICAID ==
[~2025-01-02] VITALS: Ht 170.2 cm; Wt 60.0 kg
[~2025-01-02 20:04] MED LIST changes: -DEXT1SYP9 PO; +DIGO1TAB48 PO; +FURO1TAB31 PO; -PRED10TA PO; +SPIR25TA PO; -TAMIFLU PO
[2025-01-02 20:51] LABS: Hematocrit 50.5 % (36.0-46.0); Hemoglobin 16.5 g/dL (12.2-16.2); Mean Corpuscular Hemoglobin 32.1 pg (28.0-32.0); Mean Corpuscular Volume 98.5 fL (80.0-100.0); Nucleated Red Blood Cells % 0.3 %
[2025-01-02 20:57] LABS: Alanine Aminotransferase 15 U/L (7-40); Albumin 4.0 g/dL (3.2-4.8); Alkaline Phosphatase 47 U/L (46-116); Anion Gap 12 (5-15); BUN/Creatinine Ratio 15.5 (10.0-20.0); Blood Urea Nitrogen 17 mg/dL (9-23); Calcium 8.8 mg/dL (8.7-10.4); Carbon Dioxide 22 mmol/L (20-31); Potassium 4.5 mmol/L (3.5-5.1); Sodium 142 mmol/L (136-145); Total Protein 7.1 g/dL (5.7-8.2)
[2025-01-02 20:58] LABS: Bilirubin, Total 1.4 mg/dL (0.2-1.0); Chloride 108 mmol/L (98-107); Glucose 121 mg/dL (74-106)
--- NOTE | 2025-01-02 21:17 | DVH ---
CHEST RADIOGRAPH REASON FOR EXAM: Chest pain COMPARISON: XY CHEST PORTABLE on DOS: 06/14/24, XY CHEST PORTABLE on DOS: 01/31/24, XY CHEST PORTABLE on DOS: 01/29/24, CT CHEST WITHOUT CONTRAST on DOS: 08/22/23, XY CHEST PORTABLE on DOS: 08/20/23 TECHNIQUE: One view of the chest is provided FINDINGS: The cardiomediastinal silhouette is stably enlarged. There is pulmonary venous congestion. There is no definite pulmonary edema. No definite airspace disease is identified. There is no pneumot horax. There is no significant pleural effusion. IMPRESSION: Cardiomegaly. No definite airspace disease.
--- NOTE | 2025-01-02 21:40 | ED.PDOC ---
HPI Comments HPI: Poor Historian. 50-year-old female presents to emergency department for evaluation of chest tightness and acute on chronic shortness of breath that has been going on for two weeks and worse in the last two days. Patient uses oxygen at home but had to increase her oxygen supplementation. Patient is on Eliquis and digoxin. Patient states compliance with the medications. Past Medical History: Acute hypoxic respiratory failure Severe pulmonary hypertension Type 2 diabetes Hypertension Atrial fibrillation Right heart failure, diastolic Chronic respiratory failure on home O2 Past Surgical History: REVIEW OF SYSTEMS: CONSTITUTIONAL: Denies acute: fever, diaphoresis, chills, generalized weakness. HEAD: Denies acute: headache, photophobia Eyes: Denies acute: Double vision, vision loss, eye pain, eye discharge. EARS: Denies acute: tinnitus, hearing loss, ear discharge, ear pain, THROAT: Denies acute: sore throat, swelling, difficulty swallowing , pain with swallowing, change in voice. NECK: Denies acute: neck pain, neck swelling, stiff neck. HEART: Denies acute : chest pain, palpitations, LUNGS: Denies acute: SOB, wheezing, cough, hemoptysis ABDOMEN: Denies acute: abdominal pain, Nausea, Vomiting, diarrhea, melena , hematemesis, hematochezia SKIN: Denies acute: rash, redness, lesions, itchiness. EXTREMITIES: Denies acute: calf pain, numbness, tingling, weakness, denies pain in extremity. Denies acute: Low back pain. Neuro: Denies acute: focal neurological deficit, motor or sensory focal neurological deficit, tremors, seizure like activity, confusion, dizziness, change in mental status, loss of bowel or bladder function, cauda equina like symptoms. : Denies acute: dysuria, hematuria, flank pain, increase in urinary frequency. PSYCH: Denies acute: hallucination, suicidal ideation, homicidal ideation. FEMALE: Denies acute: abnormal vaginal bleeding, foul odor, unusual discharge. PHYSICAL EXAM: General: --------acute distress, awake and alert. Head: normocephalic, atraumatic. Neck: supple, trachea is midline, no swelling. Throat: Normal phonation. Eyes:, no erythema, no purulent discharge, no proptosis, no icterus. Heart: regular rate, regular rhythm, no significant murmur appreciated. Lungs: no apparent respiratory distress, Able to speak in full sentences. No wheezing, no rhonchi, no crackles. No stridors Clear to auscultation bilaterally. Abdomen: non tender to palpation, non distended, soft, no guarding, no rebound, + bowel sounds. Neuro: Awake, Alert, oriented to name, self, situation, follows commands GCS=15. Speech is normal. Skin: no petechia, no purpura, no cyanosis, non-pale, not jaundice. Lower extremities: --no - Pitting edema no deformity, no focal swelling, no calf TTP. Makes eye contact. moves all four extremities. Face: no apparent facial droop. No CVA tenderness to percussion bilaterally. Ambulating in the ED independently. Ears: Normal appearing TM b/l, Stroke: finger to nose cerebellar testing is intact. No pronator drift. 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 No nystagmus. No nuchal rigidity, Kernig's sign, Brudzinski's sign, no meningeal signs. ED COURSE: DISCLAIMER: This medical document was created using an electronic medical record system with voice recognition software and computerized dictation system. Although this document has been carefully reviewed, there might still be some phonetic and typographical errors. Occasional wrong-word or "sound-alike" substitutions may have occurred due to the inherent limitations of voice recognition software. These areas are purely typographical due to imperfections of the software programs and do not reflect any compromise in the patient's medical care. Please read the chart carefully and recognize, using context, where these substitutions have occurred. Chief Complaint: Chest Pain Time Seen by MD: 20:06 Primary Care Provider: JOANA Reviewed Notes: Allergies Allergies: Coded Allergies: Nitroglycerin (Verified Allergy, Unknown, 04/30/18) Home Meds Active Scripts Furosemide (Lasix) 40 Mg Tab, 40 MG PO DAILY for 30 Days, #30 TAB 2 Refills Prov:FRANDY GARLAND MD 06/16/24 Apixaban Base (ELIQUIS) 2.5 Mg Tab, 2.5 MG PO BID for 30 Days, #60 TAB 2 Refills Prov:FRANDY GARLAND MD 06/16/24 Digoxin (Lanoxin) 125 Mcg Tab, 0.125 MG PO DAILY for 30 Days, #30 TAB 2 Refills Prov:FRANDY GARLAND MD 06/16/24 Trazodone Hcl (Trazodone Hcl) 50 Mg Tab, 50 MG PO HS for 30 Days, #30 TAB 2 Refills Prov:FRANDY GARLAND MD 06/16/24 Spironolactone (Aldactone) 25 Mg Tab, 25 MG PO BID for 30 Days, #60 TAB 2 Refills Prov:FRANDY GARLAND MD 06/16/24 Sildenafil Citrate (Revatio) 20 Mg Tab, 20 MG PO TID@08,14,20 for 30 Days, #90 TAB 2 Refills Prov:FRANDY GARLAND MD 06/16/24 Sildenafil Citrate (Revatio) 20 Mg Tab, 20 MG PO TID@08,14,20 for 30 Days, #90 TAB Prov:LOYD BOLAÑOS EMERGENCY DEPARTMENT MANAGER 04/06/22 Reported Medications Hydroxychloroquine Sulfate (Hydroxychloroquine Sulfat) 200 Mg Tab, 1 TAB PO DAILY for 30 Days, #30 06/15/24 Guaifenesin-Codeine (Robitussin/Codeine) 10 Ml So, 5 ML PO Q6HR for 5 Days, #120 ML 02/02/24 Trazodone Hcl (Trazodone Hcl) 50 Mg Tab, 1 TAB PO DAILY for 90 Days, #90 02/02/24 Budesonide-Formoterol Fumarate (Budesonide/Formoterol Fum 160-4.5 Mcg/Act) 1 Aer Aer, 1 AER IN UD for 90 Days, #30.6 02/02/24 Fluticasone-Salmeterol (Advair Diskus 100-50 Mcg/Dose) 1 Aer Aer, 1 PUFF INH BID for 30 Days, #60 02/02/24 Albuterol Sulfate (Albuterol Sulfate Hfa) 108 Mcg/Act Aer, 2 PUFF INH Q4HR PRN for 50 Days, #54 02/02/24 Digoxin (Digoxin) 125 Mcg Tab, 1 TAB PO DAILY for 90 Days, #90 08/21/23 Spironolactone (Spironolactone) 25 Mg Tab, 1 TAB PO BID 04/03/22 Apixaban Base (ELIQUIS) 2.5 Mg Tab, 1 TAB PO BID 04/03/22 Metformin Hydrochloride (Metformin Hydrochloride) 500 Mg Tab, 1 TAB PO BID for 90 Days, #180 04/03/22 Mode of Arrival: Ambulatory Past Medical History PAST MEDICAL HISTORY: AFIB, Arthritis, Asthma, CHF, DM, High Lipids, HTN, KS, PE Surgical History: Denies all surgeries DOCTOR OF MEDICINE History: No Pertinent DOCTOR OF MEDICINE History Family History Family History: Reviewed,noncontributory to illness Social History Smoker: Non-Smoker Alcohol: Denies ETOH Use Drugs: Denies Drug Use Lives In: Home X-Ray, Labs, Meds, VS Vital Signs Date Time Temp Pulse Resp B/P (MAP) Pulse Ox O2 Delivery O2 Flow Rate FiO2 01/02/25 20:24 86 01/02/25 20:05 98.1 86 18 128/71 98 98.1 Lab Test 01/02/25 21:30 01/02/25 20:30 Range/Units Troponin I High Sensitivity Pending 49 *H </=34 ng/L White Blood Count 5.9 4.4-10.8 10^3/uL Red Blood Count 5.13 4.0-5.20 10^6/uL Hemoglobin 16.5 H 12.2-16.2 g/dL Hematocrit 50.5 H 36.0-46.0 % Mean Corpuscular Volume 98.5 80.0-100.0 fL Mean Corpuscular Hemoglobin 32.1 H 28.0-32.0 pg Mean Corpuscular Hemoglobin Concent 32.6 32.0-36.0 g/dL Red Cell Distribution Width 14.4 H 11.8-14.3 % Platelet Count 214 140-450 10^3/uL Mean Platelet Volume 8.2 6.9-10.8 fL Neutrophils (%) (Auto) 67.4 37.0-80.0 % Lymphocytes (%) (Auto) 21.3 10.0-50.0 % Monocytes (%) (Auto) 9.6 0.0-12.0 % Eosinophils (%) (Auto) 1.4 0.0-7.0 % Basophils (%) (Auto) 0.3 0.0-2.0 % Neutrophils # (Auto) 4.0 1.6-8.6 10 ^3/uL Lymphocytes # (Auto) 1.3 0.4-5.4 10 ^3/uL Monocytes # (Auto) 0.6 0-1.3 10 ^3/uL Eosinophils # (Auto) 0.1 0-0.8 10 ^3/uL Basophils # (Auto) 0 0-0.2 10 ^3/uL Nucleated Red Blood Cells 0.3 % D-Dimer, Quantitative 0.60 H 0.0-0.49 mg/L FEU Sodium Level 142 136-145 mmol/L Potassium Level 4.5 3.5-5.1 mmol/L Chloride Level 108 H 98-107 mmol/L Carbon Dioxide Level 22 20-31 mmol/L Anion Gap 12 5-15 Blood Urea Nitrogen 17 9-23 mg/dL Creatinine 1.10 H 0.550-1.02 mg/dL Glomerular Filtration Rate Calc 60 >90 mL/min BUN/Creatinine Ratio 15.5 10.0-20.0 Serum Glucose 121 H 74-106 mg/dL Calcium Level 8.8 8.7-10.4 mg/dL Total Bilirubin 1.4 H 0.2-1.0 mg/dL Aspartate Amino Transferase (AST) 32 13-40 U/L Alanine Aminotransferase (ALT) 15 7-40 U/L Alkaline Phosphatase 47 46-116 U/L B-Type Natriuretic Peptide 683.76 0-100 pg/mL Total Protein 7.1 5.7-8.2 g/dL Albumin 4.0 3.2-4.8 g/dL Departure 1 Departure Time of Disposition: 21:39 Impression: Primary Impression: Chest pain Additional Impressions: Dyspnea Elevated troponin Elevated brain natriuretic peptide (BNP) level Disposition: ADMITTED INPATIENT Admit to: Tele Condition: Guarded Discharged With: Self SHARON BLACK DO Jan 02, 2025 21:40
[2025-01-02] MEDS ORDERED: ONDANSETRON HCL 4 MG/2 ML VIAL IV PRN (22:30)
[2025-01-02] MEDS ORDERED: DEXTROSE (50%) 50ML SYRG IV PRN (22:30)
[2025-01-02 23:00] VITALS: BP 128/71; PULSE 86; RESP 18; TEMP 98.1; O2SAT 98
[2025-01-03] VITALS (11 sets, daily range): BP systolic 108–123; BP diastolic 70–84; PULSE 70–80; RESP 16–22; TEMP 97.7–98.5; O2SAT 91–96
--- NOTE | 2025-01-03 00:28 | DVHHP2 ---
History of Present Illness Reason for Visit: Shortness for breath History of Present Illness 50-year-old female presents for evaluation of shortness for breath. Patient reports a history of heart failure with pulmonary hypertension. She states having shortness for breath over the past two weeks and worsening over the past couple of days. Reports some chest tightness. No cough or fever. No other acute complaints reported. Past Medical History Diabetes mellitus, heart failure, pulmonary hypertension , respiratory failure on oxygen Past Surgical History Denies Family History Noncontributory Smoke: No ALCOHOL: none Drugs: None Lives: with Family Review of Systems Review of Systems Review of systems are currently negative otherwise addressed in HPI. Allergies: Coded Allergies: Nitroglycerin (Verified Allergy, Unknown, 04/30/18) Medications Current Medications Medications Dose Ordered Sig/Stephanie Route Start Time Stop Time Status Last Admin Dose Admin Furosemide 20 mg BIDD IV 01/03/25 06:00 Apixaban 2.5 mg BID PO 01/03/25 10:00 Albuterol 2.5 mg Q6HPRN PRN NEB 01/02/25 22:30 Digoxin 0.125 mg DAILY PO 01/03/25 10:00 Sildenafil Citrate 20 mg TID@08,14,20 PO 01/03/25 08:00 Spironolactone 25 mg BIDD PO 01/03/25 06:00 Diagnostic Test (Pha) 1 strip ACHS 01/03/25 07:00 Insulin Human Regular ACHS SC 01/03/25 07:00 Dextrose 50 ml UD PRN IV 01/02/25 22:30 Ondansetron HCl 4 mg Q4HP PRN IV 01/02/25 22:30 Atorvastatin Calcium 10 mg HS PO 01/03/25 22:00 Aspirin 81 mg DAILY PO 01/03/25 10:00 Exam Vital Signs Vital Signs Date Time Temp Pulse Resp B/P (MAP) Pulse Ox O2 Delivery O2 Flow Rate FiO2 01/02/25 23:00 98.1 86 18 128/71 98 98.1 Labs/Xrays ORDERING PHYSICIAN: SHARON BLACK DO PROCEDURE(s): CXRP - CHEST PORTABLE REASON: cp ORDER NUMBER(s): [id number], ACCESSION NUMBER(s): [id number] CHEST RADIOGRAPH REASON FOR EXAM: Chest pain COMPARISON: XY CHEST PORTABLE on DOS: 06/14/24, XY CHEST PORTABLE on DOS: 01/31/24, XY CHEST PORTABLE on DOS: 01/29/24, CT CHEST WITHOUT CONTRAST on DOS: 08/22/23, XY CHEST PORTABLE on DOS: 08/20/23 TECHNIQUE: One view of the chest is provided FINDINGS: The cardiomediastinal silhouette is stably enlarged. There is pulmonary venous congestion. There is no definite pulmonary edema. No definite airspace disease is identified. There is no pneumothorax. There is no significant pleural effusion. IMPRESSION: Cardiomegaly. No definite airspace disease. Labs Test 01/02/25 23:46 01/02/25 20:30 Range/Units Troponin I High Sensitivity 165 *H </=34 ng/L White Blood Count 5.9 4.4-10.8 10^3/uL Red Blood Count 5.13 4.0-5.20 10^6/uL Hemoglobin 16.5 H 12.2-16.2 g/dL Hematocrit 50.5 H 36.0-46.0 % Mean Corpuscular Volume 98.5 80.0-100.0 fL Mean Corpuscular Hemoglobin 32.1 H 28.0-32.0 pg Mean Corpuscular Hemoglobin Concent 32.6 32.0-36.0 g/dL Red Cell Distribution Width 14.4 H 11.8-14.3 % Platelet Count 214 140-450 10^3/uL Mean Platelet Volume 8.2 6.9-10.8 fL Neutrophils (%) (Auto) 67.4 37.0-80.0 % Lymphocytes (%) (Auto) 21.3 10.0-50.0 % Monocytes (%) (Auto) 9.6 0.0-12.0 % Eosinophils (%) (Auto) 1.4 0.0-7.0 % Basophils (%) (Auto) 0.3 0.0-2.0 % Neutrophils # (Auto) 4.0 1.6-8.6 10 ^3/uL Lymphocytes # (Auto) 1.3 0.4-5.4 10 ^3/uL Monocytes # (Auto) 0.6 0-1.3 10 ^3/uL Eosinophils # (Auto) 0.1 0-0.8 10 ^3/uL Basophils # (Auto) 0 0-0.2 10 ^3/uL Nucleated Red Blood Cells 0.3 % D-Dimer, Quantitative 0.60 H 0.0-0.49 mg/L FEU Sodium Level 142 136-145 mmol/L Potassium Level 4.5 3.5-5.1 mmol/L Chloride Level 108 H 98-107 mmol/L Carbon Dioxide Level 22 20-31 mmol/L Anion Gap 12 5-15 Blood Urea Nitrogen 17 9-23 mg/dL Creatinine 1.10 H 0.550-1.02 mg/dL Glomerular Filtration Rate Calc 60 >90 mL/min BUN/Creatinine Ratio 15.5 10.0-20.0 Serum Glucose 121 H 74-106 mg/dL Calcium Level 8.8 8.7-10.4 mg/dL Total Bilirubin 1.4 H 0.2-1.0 mg/dL Aspartate Amino Transferase (AST) 32 13-40 U/L Alanine Aminotransferase (ALT) 15 7-40 U/L Alkaline Phosphatase 47 46-116 U/L B-Type Natriuretic Peptide 683.76 0-100 pg/mL Total Protein 7.1 5.7-8.2 g/dL Albumin 4.0 3.2-4.8 g/dL SEPSIS Sepsis Screen Date sepsis recognized/suspect: Jan 02, 2025 Time Sepsis recognized/suspect: 2004 Recent Procedure: No On Antibiotic Therapy: No Respiratory Rate >20: No Heart Rate >90: No Temp<36 C (96.8 F) or >38.3 C: No SBP <90 or MAP <65 mmHG: No New Acute Mental Status Change: No Is the patient on CPAP, BIPAP,: No Physician Orders Senior Executive Compensation Analyst (01/02/25 ) Chest Portable (01/02/25 20:18) Electrocardigram (01/02/25 20:18) Electrocardigram (01/02/25 21:18) Electrocardigram (01/02/25 23:18) Furosemide Injection (Lasix Injection) (01/03/25 06:00) Apixaban (Eliquis) (01/03/25 10:00) Albuterol Medneb (Ventolin Medneb) (01/02/25 22:30) Digoxin Tablet (Lanoxin Tablet) (01/03/25 10:00) Sildenafil Citrate (Revatio) (01/03/25 08:00) Spironolactone (Aldactone) (01/03/25 06:00) Basic Metabolic Panel (01/03/25 04:00) Glucose Blood (Accu-Chek Comfort Curve T (01/03/25 07:00) Insulin R (Human) (Insulin R) (01/03/25 07:00) Dextrose 50% Syringe (01/02/25 22:30) Admit (01/02/25 22:26) Ondansetron Hcl (Zofran) (01/02/25 22:30) Cardiac Diet-2gna,Lofat,Lochol (01/03/25 Breakfast) Echo 2d Mode Cardiac Dop (01/02/25:26) Condition: Fair (01/02/25:) Bedrest With Bathroom Privileg (01/02/25:26) Atorvastatin (Lipitor) (01/03/25 22:00) Aspirin Tablet (01/03/25 10:00) * Cardiology Consult (01/03/25 00:22) Thyroid Stimulating Hormone (01/03/25 00:22) Lipase (01/03/25 00:22) Vital Signs Date Time Temp Pulse Resp B/P (MAP) Pulse Ox O2 Delivery O2 Flow Rate FiO2 01/02/25 23:00 98.1 86 18 128/71 98 98.1 01/02/25 21:43 82 01/02/25 20:24 86 01/02/25 20:05 98.1 86 18 128/71 98 98.1 Laboratory Tests Test 01/02/25 20:30 White Blood Count 5.9 10^3/uL (4.4-10.8) Assessment/Plan Assessment/Plan Assessment Acute on chronic respiratory failure CHF exacerbation Pulmonary hypertension Elevated troponin , possible demand ischemia Acute kidney injury Diabetes mellitus Plan Admit the patient to telemetry to the hospitalist Cardiology consultation IV Lasix Echocardiogram pending Resume home medications Continue treatment per orders. Plan discussed with: Patient My Orders Orders - TIERNEY MIRANDA Procedure Category Date Status Time Furosemide Injection PHA 01/03/25 In Process (Lasix Injection) 06:00 Apixaban (Eliquis) PHA 01/03/25 In Process 10:00 Albuterol Medneb PHA 01/02/25 In Process (Ventolin Medneb) 22:30 Digoxin Tablet PHA 01/03/25 In Process (Lanoxin Tablet) 10:00 Sildenafil Citrate PHA 01/03/25 In Process (Revatio) 08:00 Spironolactone PHA 01/03/25 In Process (Aldactone) 06:00 Basic Metabolic Panel LAB 01/03/25 Logged 04:00 Glucose Blood PHA 01/03/25 In Process (Accu-Chek Comfort 07:00 Insulin R (Human) PHA 01/03/25 In Process (Insulin R) 07:00 Dextrose 50% Syringe PHA 01/02/25 In Process 22:30 Admit ADMIT 01/02/25 Transmitted 22:26 Ondansetron Hcl PHA 01/02/25 In Process (Zofran) 22:30 Cardiac DIET 01/03/25 Transmitted Diet-2gna,Lofat,Lochol Breakfast Echo 2d Mode Cardiac US 01/02/25 Logged DOP 22:26 Condition: Fair MAYKEL 01/02/25 In Process 22:26 Bedrest With Bathroom MAYKEL 01/02/25 In Process Privileg 22:26 Atorvastatin (Lipitor) PHA 01/03/25 In Process 22:00 Aspirin Tablet PHA 01/03/25 In Process 10:00 * Cardiology Consult CONS 01/03/25 Verified 00:22 Thyroid Stimulating LAB 01/03/25 Verified Hormone 00:22 Lipase LAB 01/03/25 Verified 00:22 Date of Service: Jan 02, 2025 Billing Provider: TIERNEY MIRANDA Common Visit Codes: [id number] INP/OBS CARE (HIGH) TIERNEY MIRANDA Jan 03, 2025 00:28
[2025-01-03] MEDS: FUROSEMIDE 40 MG/4 ML VIAL IV ONE (02:06)
[2025-01-03] MEDS: ACCU-CHEK COMFORT CURVE STRIP VI SCH (08:05)
[2025-01-03] MEDS: InsuLIN REG 1unit/0.01ml Soln (100units/ml) SC SCH (08:06)
[2025-01-03] MEDS: SILDENAFIL CITRATE 20 MG TAB PO SCH (08:11)
[2025-01-03] MEDS: SPIRONOLACTONE 25 MG TAB PO SCH (08:11)
[2025-01-03] MEDS: FUROSEMIDE 20 MG/2 ML VIAL IV SCH (08:24)
[2025-01-03 08:49] LABS: Chloride 106 mmol/L (98-107); Potassium 3.8 mmol/L (3.5-5.1); Sodium 140 mmol/L (136-145)
[2025-01-03 08:50] LABS: Anion Gap 14 (5-15); Calcium 9.3 mg/dL (8.7-10.4); Carbon Dioxide 20 mmol/L (20-31)
[2025-01-03 08:55] LABS: BUN/Creatinine Ratio 20.0 (10.0-20.0); Blood Urea Nitrogen 19 mg/dL (9-23); Lipase 26 U/L (12-53)
[2025-01-03 09:17] LABS: Glucose 114 mg/dL (74-106)
[2025-01-03] MEDS: APIXABAN 2.5 MG TAB PO SCH (10:24)
[2025-01-03] MEDS: DIGOXIN 0.125 MG TAB PO SCH (10:24)
[2025-01-03] MEDS: ALBUTEROL SULF 2.5 MG/0.5ML(0.5%) NEB SOLN NEB PRN (14:14)
--- NOTE | 2025-01-03 14:34 | DVHPN2 ---
Subjective Patient continues to reporting having cough, right shoulder pain. Reviewed: Care Plan, H&P, Labs, Medications Changes from previous H/P or p: No Changes General: Per HPI Objective Vitals Vital Signs Date Time Temp Pulse Resp B/P (MAP) Pulse Ox O2 Delivery O2 Flow Rate FiO2 01/03/25 14:20 95 Nasal Cannula* 4 36 01/03/25 14:20 78 20 01/03/25 14:04 98.3 137/84 (101) 98.3 General Appearance: Alert, Oriented X3, Cooperative, mild distress HEENT: Atraumatic, PERRLA Lungs: Clear to auscultation, Normal air movement Cardiovascular: Normal S1, Normal S2 Abdomen: Normal bowel sounds, Soft, No tenderness, No hepatospenomegaly Musculoskeletal: Normal sensory function, Normal motor function Neuro: Normal gait, Normal speech Skin: Dry, Intact Psych/Mental Status: Mental status NL, Mood NL Medications Current Medications Medications Dose Ordered Sig/Stephanie Route Start Time Stop Time Status Last Admin Dose Admin Furosemide 20 mg BIDD IV 01/03/25 06:00 01/03/25 08:24 20 MG Apixaban 2.5 mg BID PO 01/03/25 10:00 01/03/25 10:24 2.5 MG Albuterol 2.5 mg Q6HPRN PRN NEB 01/02/25 22:30 01/03/25 14:14 2.5 MG Digoxin 0.125 mg DAILY PO 01/03/25 10:00 01/03/25 10:24 0.125 MG Sildenafil Citrate 20 mg TID@08,14,20 PO 01/03/25 08:00 01/03/25 08:11 20 MG Spironolactone 25 mg BIDD PO 01/03/25 06:00 01/03/25 08:11 25 MG Diagnostic Test (Pha) 1 strip ACHS 01/03/25 07:00 01/03/25 12:14 1 STRIP Insulin Human Regular ACHS SC 01/03/25 07:00 01/03/25 12:27 2 UNITS Dextrose 50 ml UD PRN IV 01/02/25 22:30 Ondansetron HCl 4 mg Q4HP PRN IV 01/02/25 22:30 Atorvastatin Calcium 10 mg HS PO 01/03/25 22:00 Aspirin 81 mg DAILY PO 01/03/25 10:00 01/03/25 10:26 81 MG Ipratropium [place] 0.5 mg Q6HWA NEB 01/03/25 18:00 Albuterol 2.5 mg Q6HWA [facility] 01/03/25 18:00 Guaifenesin 200 mg Q4HP PRN GT 01/03/25 12:15 01/03/25 12:27 200 MG Laboratory Results Laboratory Tests 01/02/25 20:30 01/03/25 07:41 Chemistry Test 01/02/25 20:30 01/03/25 07:41 Albumin 4.0 g/dL (3.2-4.8) Calcium Level 8.8 mg/dL (8.7-10.4) 9.3 mg/dL (8.7-10.4) Total Protein 7.1 g/dL (5.7-8.2) Coagulation Test 01/02/25 20:30 D-Dimer, Quantitative 0.60 mg/L FEU (0.0-0.49) H Lipid panel Test 01/03/25 07:41 Lipase 26 U/L (12-53) Cardiac Markers Test 01/02/25 20:30 B-Type Natriuretic Peptide 683.76 pg/mL (0-100) LFT Test 01/02/25 20:30 Alanine Aminotransferase (ALT) 15 U/L (7-40) Alkaline Phosphatase 47 U/L (46-116) Aspartate Amino Transferase (AST) 32 U/L (13-40) Total Bilirubin 1.4 mg/dL (0.2-1.0) H HgA1c, TSH Test 01/03/25 07:41 Thyroid Stimulating Hormone (TSH) 2.21 uIU/mL (0.55-4.78) Labs and/or images reviewed: Labs reviewed by me, Image(s) reviewed by me Assessment/Plan Assessment/Plan Impression: -acute on chronic hypoxic respiratory failure -NSTEMI, probably type 2 -pulmonary hypertension -rheumatoid arthritis -rule out bronchial pneumonia Plan: -transferred to telemetry floor. Patient reporting palpitations -cardiology consultation -echocardiogram -check ESR, CRP -restart Plaquenil -continue Revatio -start antibiotic therapy with Rocephin and azithromycin -antitussives -repeat labs and chest x-ray in a.m. Total time spent with patient discussing and formulating plan of care: 35 minutes. This medical document was created using an electronic medical record system with [employer] computerized dictation system. Although this document has been carefully reviewed, there may still be some phonetic and typographical errors. These areas are purely typographical due to imperfections of the software programs, and do not reflect any compromise in the patient's medical care. Plan discussed with: Patient, Other (RN) My Orders Orders - ZI UMAÑA NP Procedure Category Date Status Time Guaifenesin-Codeine PHA 01/03/25 Transmitted Liquid (Robitussin/C 14:30 Levalbuterol Hcl PHA 01/03/25 Transmitted (Xopenex Medneb) 18:00 Ceftriaxone Ivpb PHA 01/04/25 Verified Rocephin 09:00 Azithromycin 500mg/ PHA 01/04/25 Verified 250ml (Zithromax 50 10:00 Transfer Orders XFER 01/03/25 Transmitted 14:17 Date of Service: Jan 03, 2025 Billing Provider: ZI UMAÑA NP Common Visit Codes: [id number] INP/OBS CARE(HIGH) ZI UMAÑA NP Jan 03, 2025 14:34
[2025-01-03] MEDS ORDERED: ALBUTEROL SULF 2.5 MG/0.5ML(0.5%) NEB SOLN NEB SCH (18:00)
[2025-01-03] MEDS: LEVALBUTEROL HCL 1.25 MG/3 ML NEB NEB SCH (19:54)
[2025-01-03] MEDS: IPRATROPIUM BROM 0.5 MG/2.5ML INH SOL NEB SCH (19:54)
[2025-01-03] MEDS: guaiFENesin-CODEINE Liq 5 ML UD PO PRN (20:15)
[2025-01-03] MEDS: ATORVASTATIN 20 MG TAB PO SCH (20:15)
[2025-01-03] MEDS: TEMAZEPAM 15 MG CAP PO ONE (23:18)
[2025-01-04] VITALS (16 sets, daily range): BP systolic 109–137; BP diastolic 62–88; PULSE 65–92; RESP 16–22; TEMP 96.9–97.8; O2SAT 92–98
--- NOTE | 2025-01-04 00:24 | ECG ---
[facility] Test Date: 2025-01-02 Test Time: 21:43:31 Pat Name: AKIKO VIDAL Department: ED Room: 0240T Gender: F Transverse Abdominal Muscle Surgeon: : 1970 Requested By: SHARON BLACK Order Number: [id number] Reading MD: Ezekiel Baumann Measurements Intervals [place] Rate: 82 P: 83 AK: 178 QRS: 79 QRSD: 145 T: 232 QT: 419 QTc: 490 Interpretive Statements Sinus rhythm Right atrial enlargement IVCD, consider atypical RBBB Anteroseptal infarct, age indeterminate Electronically Signed On 01-10-2025 13:42:00 PDT by Ezekiel Baumann Please click the below link to view image of tracing.
--- NOTE | 2025-01-04 00:24 | ECG ---
[facility] Test Date: 2025-01-02 Test Time: 20:12:02 Pat Name: AKIKO VIDAL Department: ED Room: 0240T Gender: F Human Resource Consultant: : 1970 Requested By: SHARON BLACK Order Number: [id number] Reading MD: Ezekiel Baumann Measurements Intervals [place] Rate: 86 P: 77 DC: 171 QRS: 70 QRSD: 147 T: 262 QT: 415 QTc: 497 Interpretive Statements Sinus rhythm Atrial premature complex Right atrial enlargement Right bundle branch block Anteroseptal infarct, age indeterminate Electronically Signed On 01-10-2025 13:41:55 PDT by Ezekiel Baumann Please click the below link to view image of tracing.
--- NOTE | 2025-01-04 05:26 | DVH ---
CHEST RADIOGRAPH Indication: pna Technique: Single frontal view of the chest was obtained COMPARISON: XY CHEST PORTABLE on DOS: 01/02/25, XY CHEST PORTABLE on DOS: 06/14/24, XY CHEST PORTABLE on DOS: 01/31/24, XY CHEST PORTABLE on DOS: 01/29/24, CT CHEST WITHOUT CONTRAST on DOS: 08/22/23 FINDINGS: Lines and Tubes: None Lungs: Clear Pleura: No effusion. No pneumothorax. Cardiomediastinal contours: Cardiomegaly. Bones: Unremarkable IMPRESSION: 1. Cardiomegaly
[2025-01-04 05:41] LABS: Chloride 103 mmol/L (98-107); Sodium 141 mmol/L (136-145)
[2025-01-04 05:42] LABS: Anion Gap 10 (5-15); Calcium 8.9 mg/dL (8.7-10.4); Carbon Dioxide 28 mmol/L (20-31)
[2025-01-04 05:46] LABS: Potassium 3.4 mmol/L (3.5-5.1)
[2025-01-04 05:47] LABS: BUN/Creatinine Ratio 18.2 (10.0-20.0); Blood Urea Nitrogen 18 mg/dL (9-23); Glucose 83 mg/dL (74-106)
--- NOTE | 2025-01-04 10:10 | DVHPN2 ---
Subjective Patient continues to reporting having cough, right shoulder pain. Reviewed: Care Plan, H&P, Labs, Medications Changes from previous H/P or p: No Changes General: Per HPI Objective Vitals Vital Signs Date Time Temp Pulse Resp B/P (MAP) Pulse Ox O2 Delivery O2 Flow Rate FiO2 01/04/25 09:11 76 01/04/25 08:18 97.4 16 137/74 (95) 95 97.4 01/04/25 07:12 Nasal Cannula* 2 28 Intake/Output Intake and Output 01/04/25 07:00 Intake Total 500 ml Balance 500 ml Intake Oral 500 ml # Voids 1 # Bowel Movements 1 General Appearance: Alert, Oriented X3, Cooperative, mild distress HEENT: Atraumatic, PERRLA Lungs: Clear to auscultation, Normal air movement Cardiovascular: Normal S1, Normal S2 Abdomen: Normal bowel sounds, Soft, No tenderness, No hepatospenomegaly Musculoskeletal: Normal sensory function, Normal motor function Neuro: Normal gait, Normal speech Skin: Dry, Intact Psych/Mental Status: Mental status NL, Mood NL Medications Current Medications Medications Dose Ordered Sig/Stephanie Route Start Time Stop Time Status Last Admin Dose Admin Furosemide 20 mg BIDD IV 01/03/25 06:00 01/04/25 05:45 20 MG Apixaban 2.5 mg BID PO 01/03/25 10:00 01/04/25 09:11 2.5 MG Digoxin 0.125 mg DAILY PO 01/03/25 10:00 01/04/25 09:11 0.125 MG Sildenafil Citrate 20 mg TID@08,14,20 PO 01/03/25 08:00 01/04/25 08:30 20 MG Spironolactone 25 mg BIDD PO 01/03/25 06:00 01/04/25 05:45 25 MG Diagnostic Test (Pha) 1 strip ACHS 01/03/25 07:00 01/04/25 06:50 1 STRIP Insulin Human Regular ACHS SC 01/03/25 07:00 01/03/25 21:24 3 UNITS Dextrose 50 ml UD PRN IV 01/02/25 22:30 Ondansetron HCl 4 mg Q4HP PRN IV 01/02/25 22:30 Atorvastatin Calcium 10 mg HS PO 01/03/25 22:00 01/03/25 20:15 10 MG Aspirin 81 mg DAILY PO 01/03/25 10:00 01/04/25 09:11 81 MG Ipratropium [place] 0.5 mg Q6HWA NEB 01/03/25 18:00 01/04/25 07:12 0.5 MG Guaifenesin/ Codeine Phosphate 5 ml Q4HPRN PRN PO 01/03/25 14:30 01/03/25 20:15 5 ML Levalbuterol HCl 0.625 mg Q6HWA NEB 01/03/25 18:00 01/04/25 07:12 0.625 MG Ceftriaxone Sodium 50 ml @ 100 mls/hr DAILY@09 IV 01/04/25 09:00 01/04/25 09:12 100 MLS/HR Azithromycin 250 ml @ 125 mls/hr DAILY IV 01/04/25 10:00 Hydroxychloroquine Sulfate 200 mg BID PO 01/03/25 22:00 01/04/25 09:11 200 MG Pantoprazole Sodium 40 mg DAILY@0600 PO 01/05/25 06:00 Laboratory Results Laboratory Tests 01/02/25 20:30 01/04/25 05:12 Chemistry Test 01/04/25 05:12 Calcium Level 8.9 mg/dL (8.7-10.4) Labs and/or images reviewed: Labs reviewed by me, Image(s) reviewed by me Assessment/Plan Assessment/Plan Impression: -acute on chronic hypoxic respiratory failure -NSTEMI, probably type 2 -pulmonary hypertension -rheumatoid arthritis -rule out bronchial pneumonia Plan: Events: Telemetry reveals wandering atrial pacemaker. Patient continues to have some discomfort right shoulder pain. Reports respiratory status has improved. -cardiology consultation -echocardiogram: Pending -continue bronchodilators -pain management -restart Plaquenil -continue Revatio -continue Rocephin and azithromycin -antitussives Total time spent with patient discussing and formulating plan of care: 35 minutes. This medical document was created using an electronic medical record system with [employer] system. Although this document has been carefully reviewed, there may still be some phonetic and typographical errors. These areas are purely typographical due to imperfections of the software programs, and do not reflect any compromise in the patient's medical care. Plan discussed with: Patient, Other (RN) My Orders Orders - ZI UMAÑA [employer] MACHINE Procedure Category Date Status Time Guaifenesin-Codeine PHA 01/03/25 In Process Liquid (Robitussin/C 14:30 Levalbuterol Hcl PHA 01/03/25 In Process (Xopenex Medneb) 18:00 Ceftriaxone 1gm/50ml PHA 01/04/25 In Process (Rocephin) 09:00 Azithromycin 500mg/ PHA 01/04/25 In Process 250ml (Zithromax 50 10:00 Transfer Orders XFER 01/03/25 Transmitted 14:17 Hydroxychloroquine PHA 01/03/25 In Process Tablet (Plaquenil Tab 22:00 Chest Portable XY 01/04/25 Resulted 04:00 Pantoprazole Tablet PHA 01/05/25 In Process (Protonix Tablet) 06:00 Date of Service: Jan 04, 2025 Billing Provider: ZI UMAÑA NP Common Visit Codes: [id number] INP/OBS CARE(HIGH) ZI UMAÑA NP Jan 04, 2025 10:10
[2025-01-04] MEDS: AZITHROMYCIN 500MG/ 250ML 250 ML IV SCH (12:53)
--- NOTE | 2025-01-04 15:51 | DVHSR ---
APPROVED REPORT EXAM: Two-dimensional and M-mode echocardiogram with Doppler and color Doppler. Blood Pressure: 115/88 mmHg INDICATION ef RISK FACTORS Height: 5'7", Weight: 124 DIMENSIONS LVDd2.7 (3.8-5.7cm)LA (2D)1.7 (1.9-4.0cm)Aortic Root3.1 (2.0-3.7cm) LVDs1.8 (2.5-4.0cm)LA (MM) (1.9-4.0cm)Aortic Cusp Exc2.1 (1.5-2.0cm) EF (%) 60.0 (55-70%)Rt. Atrium6.3 (1.9-4.0cm)Asc. Aorta cm IVSd0.9 (0.7-1.1cm)RV (D)5.8 (1.8-2.4cm) PWd1.2 (0.7-1.1cm) Mitral Valve MitralMitral Stenosis E/A ratio0.02D MVAcm2 Aortic Valve Aortic ValveAortic Stenosis LVOT Diameter2.0 (1.8-2.4cm)Doppler AVAcm2 Pulmonic Valve V21.44m/s Tricuspid Valve TR Velocity3.58m/s [id number] Other Information Quality : Technically LimitedRhythm : Technically limited study due to body habitus. Conclusion Left ventricle is normal in size Left ventricular systolic function is preserved Ejection fraction is estimated at 55% Right heart is severely dilated Right heart function is markedly depressed There is moderate to severe tricuspid regurgitation There is severe pulmonary hypertension estimated at 75-80 mmHg There is trivial pericardial effusion
[2025-01-04] MEDS: POTASSIUM EFFERVESENT TAB 25 MEQ PO ONE (17:35)
[2025-01-04] MEDS: ACETAMINOPHEN 500 MG TAB or CAP PO PRN (20:51)
--- NOTE | 2025-01-04 21:16 | DVHINCON2 ---
DATE OF CONSULTATION: 01/04/2025 REFERRING PHYSICIAN: Sacha Hernandez, Nurse Practitioner CONSULTING PHYSICIAN: Andres Coley MD INDICATION: Shortness of breath and chest pain. HISTORY OF PRESENT ILLNESS: The patient is a 54-year-old female with history of severe pulmonary hypertension, right heart failure, diabetes and hypertension, who presented to the hospital with complaints of worsening shortness of breath, cough and dizzy spells and chest tightness. She is now admitted with diagnosis of pneumonia and right heart failure. The patient's troponin is mildly elevated with no significant trend up. Currently, the patient is on IV antibiotics. PAST MEDICAL HISTORY: * Severe pulmonary hypertension. * Right heart failure. * Hypertension. * Dyslipidemia. MEDICATIONS: Per med rec. ALLERGIES: No known drug allergies. PHYSICAL EXAMINATION: GENERAL: Alert and awake, in mild respiratory distress.. VITAL SIGNS: Blood pressure 115/71, pulse 72 per minute, saturation 98%. HEENT: No carotid bruits. No jugular venous distention. CHEST: Bilateral air entry. Few rhonchi. Scattered wheezing and rhonchi. CARDIOVASCULAR: Precordial and carotid pulses palpable. Prominent S2. EXTREMITIES: No peripheral edema. DIAGNOSTIC DATA: Sodium 141, potassium 3.4 and creatinine is 0.9. Troponin first set 49, second set 92, third set was 165. White count 5, hemoglobin 16, and platelets 212. ASSESSMENT: * Pneumonia. * Right heart failure. * Severe pulmonary hypertension. * Prior history of meth use. * Hypertension. * Dyslipidemia. RECOMMENDATIONS: * Continue IV antibiotics. * Continue diuresis. * Monitor electrolytes and renal function closely. * Supplement potassium. * Continue sildenafil. * The patient is being evaluated as an outpatient for possible heart and lung transplant at tertiary [facility]. * Continue telemetry monitoring. Thank you for allowing me to participate in the care of this patient. MD ALEXANDER Peck/DOROTHY/CHARLOTTE/KEV TID: [id number] RECEIPT: [id number] [facility]
[2025-01-05] VITALS (13 sets, daily range): BP systolic 96–128; BP diastolic 61–93; PULSE 67–85; RESP 15–18; TEMP 97.6–98.2; O2SAT 92–98
[2025-01-05] MEDS: HYDROcodone-ACET 5/325MG TAB PO PRN (01:26)
[2025-01-05] MEDS: PANTOPRAZOLE 40 MG TAB PO SCH (05:23)
--- NOTE | 2025-01-05 10:28 | DVHPN2 ---
Subjective Patient continues to reporting having cough, right shoulder pain. Reviewed: Care Plan, H&P, Labs, Medications Changes from previous H/P or p: No Changes General: Per HPI Objective Vitals Vital Signs Date Time Temp Pulse Resp B/P (MAP) Pulse Ox O2 Delivery O2 Flow Rate FiO2 01/05/25 10:03 64 01/05/25 09:00 98.2 15 121/87 (98) 92 98.2 01/05/25 08:00 Nasal Cannula* 2 28 Intake/Output Intake and Output 01/05/25 07:00 Intake Total 2000 ml Balance 2000 ml Intake Oral 1700 ml IV Total 300 ml # Voids 13 # Bowel Movements 2 General Appearance: Alert, Oriented X3, Cooperative, mild distress HEENT: Atraumatic, PERRLA Lungs: Clear to auscultation, Normal air movement Cardiovascular: Normal S1, Normal S2 Abdomen: Normal bowel sounds, Soft, No tenderness, No hepatospenomegaly Musculoskeletal: Normal sensory function, Normal motor function Neuro: Normal gait, Normal speech Skin: Dry, Intact Psych/Mental Status: Mental status NL, Mood NL Medications Current Medications Medications Dose Ordered Sig/Stephanie Route Start Time Stop Time Status Last Admin Dose Admin Furosemide 20 mg BIDD IV 01/03/25 06:00 01/05/25 05:24 20 MG Apixaban 2.5 mg BID PO 01/03/25 10:00 01/05/25 09:55 2.5 MG Digoxin 0.125 mg DAILY PO 01/03/25 10:00 01/05/25 10:03 0.125 MG Sildenafil Citrate 20 mg TID@08,14,20 PO 01/03/25 08:00 01/05/25 09:57 20 MG Spironolactone 25 mg BIDD PO 01/03/25 06:00 01/05/25 05:22 25 MG Diagnostic Test (Pha) 1 strip ACHS 01/03/25 07:00 01/05/25 06:23 1 STRIP Insulin Human Regular ACHS SC 01/03/25 07:00 01/04/25 21:05 3 UNITS Dextrose 50 ml UD PRN IV 01/02/25 22:30 Atorvastatin Calcium 10 mg HS PO 01/03/25 22:00 01/04/25 21:00 10 MG Aspirin 81 mg DAILY PO 01/03/25 10:00 01/05/25 09:57 81 MG Ipratropium [place] 0.5 mg Q6HWA NEB 01/03/25 18:00 01/04/25 19:18 0.5 MG Guaifenesin/ Codeine Phosphate 5 ml Q4HPRN PRN PO 01/03/25 14:30 01/05/25 09:50 5 ML Levalbuterol HCl 0.625 mg Q6HWA NEB 01/03/25 18:00 01/04/25 19:18 0.625 MG Ceftriaxone Sodium 50 ml @ 100 mls/hr DAILY@09 IV 01/04/25 09:00 01/04/25 09:12 100 MLS/HR Azithromycin 250 ml @ 125 mls/hr DAILY IV 01/04/25 10:00 01/04/25 12:53 125 MLS/HR Hydroxychloroquine Sulfate 200 mg BID PO 01/03/25 22:00 01/05/25 09:58 200 MG Pantoprazole Sodium 40 mg DAILY@0600 PO 01/05/25 06:00 01/05/25 05:23 40 MG Acetaminophen/ Hydrocodone Bitart 1 tab Q6HPRN PRN PO 01/04/25 10:15 01/05/25 01:26 1 TAB Acetaminophen 500 mg Q8HP PRN PO 01/04/25 10:15 01/04/25 20:51 500 MG Ondansetron HCl 4 mg Q6HP PRN IV 01/04/25 10:15 Laboratory Results Laboratory Tests 01/02/25 20:30 01/04/25 05:12 Labs and/or images reviewed: Labs reviewed by me, Image(s) reviewed by me Assessment/Plan Assessment/Plan Impression: -acute on chronic hypoxic respiratory failure -NSTEMI, probably type 2 -pulmonary hypertension -rheumatoid arthritis -rule out bronchial pneumonia Plan: Events: No events overnight. Patient reports that her breathing has improved from yesterday. -cardiology consultation : Discussed case with Dr. Coley -echocardiogram: Results reviewed -continue bronchodilators -pain management -restart Plaquenil -continue Revatio -continue Rocephin and azithromycin -antitussives Total time spent with patient discussing and formulating plan of care: 35 minutes. This medical document was created using an electronic medical record system with [employer] system. Although this document has been carefully reviewed, there may still be some phonetic and typographical errors. These areas are purely typographical due to imperfections of the software programs, and do not reflect any compromise in the patient's medical care. Plan discussed with: Patient, Other (RN) Date of Service: Jan 05, 2025 Billing Provider: ZI UMAÑA NP Common Visit Codes: [id number] INP/OBS CARE(HIGH) ZI UMAÑA NP Jan 05, 2025 10:28
[2025-01-05] MEDS: ONDANSETRON HCL 4 MG/2 ML VIAL IV PRN (13:19)
[2025-01-05] MEDS: hydrOXYzine 25 MG TAB or CAP PO PRN (14:10)
[2025-01-06] VITALS (9 sets, daily range): BP systolic 96–107; BP diastolic 45–75; PULSE 61–80; RESP 16–19; TEMP 95.8–98.5; O2SAT 90–95
--- NOTE | 2025-01-06 11:36 | DVHPN2 ---
Subjective Patient continues to reporting having cough, right shoulder pain. Reviewed: Care Plan, H&P, Labs, Medications Changes from previous H/P or p: No Changes General: Per HPI Objective Vitals Vital Signs Date Time Temp Pulse Resp B/P (MAP) Pulse Ox O2 Delivery O2 Flow Rate FiO2 01/06/25 10:04 72 01/06/25 10:00 92 Nasal Cannula* 2 28 01/06/25 09:00 98.5 18 97/65 (76) 98.5 Intake/Output Intake and Output 01/06/25 07:00 Intake Total 1850 ml Balance 1850 ml Intake Oral 1800 ml IV Total 50 ml # Voids 7 # Bowel Movements 2 General Appearance: Alert, Oriented X3, Cooperative, mild distress HEENT: Atraumatic, PERRLA Lungs: Clear to auscultation, Normal air movement Cardiovascular: Normal S1, Normal S2 Abdomen: Normal bowel sounds, Soft, No tenderness, No hepatospenomegaly Musculoskeletal: Normal sensory function, Normal motor function Neuro: Normal gait, Normal speech Skin: Dry, Intact Psych/Mental Status: Mental status NL, Mood NL Medications Current Medications Medications Dose Ordered Sig/Stephanie Route Start Time Stop Time Status Last Admin Dose Admin Furosemide 20 mg BIDD IV 01/03/25 06:00 01/05/25 05:24 20 MG Apixaban 2.5 mg BID PO 01/03/25 10:00 01/06/25 10:04 2.5 MG Digoxin 0.125 mg DAILY PO 01/03/25 10:00 01/06/25 10:04 0.125 MG Sildenafil Citrate 20 mg TID@08,14,20 PO 01/03/25 08:00 01/05/25 13:19 20 MG Spironolactone 25 mg BIDD PO 01/03/25 06:00 01/05/25 05:22 25 MG Diagnostic Test (Pha) 1 strip ACHS 01/03/25 07:00 01/06/25 11:00 1 STRIP Insulin Human Regular ACHS SC 01/03/25 07:00 01/05/25 21:57 2 UNITS Dextrose 50 ml UD PRN IV 01/02/25 22:30 Atorvastatin Calcium 10 mg HS PO 01/03/25 22:00 01/05/25 21:54 10 MG Aspirin 81 mg DAILY PO 01/03/25 10:00 01/06/25 10:04 81 MG Ipratropium [place] 0.5 mg Q6HWA NEB 01/03/25 18:00 01/04/25 19:18 0.5 MG Guaifenesin/ Codeine Phosphate 5 ml Q4HPRN PRN PO 01/03/25 14:30 01/06/25 10:04 5 ML Levalbuterol HCl 0.625 mg Q6HWA NEB 01/03/25 18:00 01/04/25 19:18 0.625 MG Ceftriaxone Sodium 50 ml @ 100 mls/hr DAILY@09 IV 01/04/25 09:00 01/06/25 10:04 100 MLS/HR Hydroxychloroquine Sulfate 200 mg BID PO 01/03/25 22:00 01/06/25 10:04 200 MG Pantoprazole Sodium 40 mg DAILY@0600 PO 01/05/25 06:00 01/06/25 06:37 40 MG Acetaminophen/ Hydrocodone Bitart 1 tab Q6HPRN PRN PO 01/04/25 10:15 01/06/25 04:27 1 TAB Acetaminophen 500 mg Q8HP PRN PO 01/04/25 10:15 01/04/25 20:51 500 MG Ondansetron HCl 4 mg Q6HP PRN IV 01/04/25 10:15 01/06/25 10:04 4 MG Hydroxyzine [place] 25 mg Q6HP PRN PO 01/05/25 13:30 01/05/25 14:10 25 MG Laboratory Results Laboratory Tests 01/02/25 20:30 01/04/25 05:12 Labs and/or images reviewed: Labs reviewed by me, Image(s) reviewed by me Assessment/Plan Assessment/Plan Impression: -acute on chronic hypoxic respiratory failure -NSTEMI, probably type 2 -pulmonary hypertension -rheumatoid arthritis -rule out bronchial pneumonia Plan: Events: No events overnight. Worsening generalized weakness -cardiology consultation : Discussed case with Dr. Coley -echocardiogram: Results reviewed -continue bronchodilators -pain management -continue Plaquenil -continue Revatio -continue Rocephin and azithromycin -antitussives Total time spent with patient discussing and formulating plan of care: 35 minutes. This medical document was created using an electronic medical record system with [employer] system. Although this document has been carefully reviewed, there may still be some phonetic and typographical errors. These areas are purely typographical due to imperfections of the software programs, and do not reflect any compromise in the patient's medical care. Plan discussed with: Patient, Other (RN) My Orders Orders - ZI UMAÑA NP Procedure Category Date Status Time Hydroxyzine Oral PHA 01/05/25 In Process (Vistaril Oral) 13:30 Basic Metabolic Panel LAB 01/07/25 Verified 04:00 Chest Portable XY 01/07/25 Verified 04:00 Date of Service: Jan 06, 2025 Billing Provider: ZI UMAÑA NP Common Visit Codes: [id number] INP/OBS CARE(HIGH) ZI UMAÑA NP Jan 06, 2025 11:36
[2025-01-07] VITALS (13 sets, daily range): BP systolic 94–116; BP diastolic 53–70; PULSE 58–101; RESP 16–22; TEMP 96.2–98.6; O2SAT 90–98
[2025-01-07 06:06] LABS: Anion Gap 11 (5-15); Calcium 9.0 mg/dL (8.7-10.4); Carbon Dioxide 26 mmol/L (20-31)
[2025-01-07 06:11] LABS: BUN/Creatinine Ratio 12.6 (10.0-20.0)
[2025-01-07 06:13] LABS: Blood Urea Nitrogen 42 mg/dL (9-23); Chloride 92 mmol/L (98-107); Glucose 120 mg/dL (74-106); Sodium 129 mmol/L (136-145)
[2025-01-07 06:17] LABS: Potassium 5.9 mmol/L (3.5-5.1)
--- NOTE | 2025-01-07 08:50 | DVH ---
INDICATION: chf TECHNIQUE: Single frontal view of the chest was obtained COMPARISON: XY CHEST PORTABLE on DOS: 01/04/25, XY CHEST PORTABLE on DOS: 01/02/25, XY CHEST PORTABLE on DOS: 06/14/24, XY CHEST PORTABLE on DOS: 01/31/24, XY CHEST PORTABLE on DOS: 01/29/24, XY CHEST PO RTABLE on DOS: 01/04/25 FINDINGS: Lines and Tubes: None Lungs: Clear Pleura: No effusion. No pneumothorax. Cardiomediastinal contours: Cardiomegaly. Bones: Unremarkable IMPRESSION: 1. Cardiomegaly
[2025-01-07 09:01] LABS: Anion Gap 11 (5-15); Carbon Dioxide 26 mmol/L (20-31)
[2025-01-07 09:08] LABS: BUN/Creatinine Ratio 12.8 (10.0-20.0); Blood Urea Nitrogen 42 mg/dL (9-23); Calcium 8.7 mg/dL (8.7-10.4); Chloride 93 mmol/L (98-107); Glucose 136 mg/dL (74-106); Potassium 5.1 mmol/L (3.5-5.1); Sodium 130 mmol/L (136-145)
--- NOTE | 2025-01-07 16:04 | DVHPN2 ---
Subjective Patient reports respiratory status has improved. Reviewed: Care Plan, H&P, Labs, Medications Changes from previous H/P or p: Changes General: Per HPI Objective Vitals Vital Signs Date Time Temp Pulse Resp B/P (MAP) Pulse Ox O2 Delivery O2 Flow Rate FiO2 01/07/25 13:00 96.7 74 18 97/67 (77) 91 96.7 01/07/25 12:16 Nasal Cannula 2.0 01/07/25 12:16 28 Intake/Output Intake and Output 01/07/25 07:00 Intake Total 625 ml Balance 625 ml Intake Oral 575 ml IV Total 50 ml # Voids 3 # Bowel Movements 1 General Appearance: Alert, Oriented X3, Cooperative, mild distress HEENT: Atraumatic, PERRLA Lungs: Clear to auscultation, Normal air movement Cardiovascular: Normal S1, Normal S2 Abdomen: Normal bowel sounds, Soft, No tenderness, No hepatospenomegaly Musculoskeletal: Normal sensory function, Normal motor function Neuro: Normal gait, Normal speech Skin: Dry, Intact Psych/Mental Status: Mental status NL, Mood NL Medications Current Medications Medications Dose Ordered Sig/Stephanie Route Start Time Stop Time Status Last Admin Dose Admin Furosemide 20 mg BIDD IV 01/03/25 06:00 01/07/25 06:24 20 MG Apixaban 2.5 mg BID PO 01/03/25 10:00 01/07/25 09:27 2.5 MG Digoxin 0.125 mg DAILY PO 01/03/25 10:00 01/07/25 09:23 0.125 MG Sildenafil Citrate 20 mg TID@08,14,20 PO 01/03/25 08:00 01/05/25 13:19 20 MG Spironolactone 25 mg BIDD PO 01/03/25 06:00 01/05/25 05:22 25 MG Diagnostic Test (Pha) 1 strip ACHS 01/03/25 07:00 01/07/25 11:16 1 STRIP Insulin Human Regular ACHS SC 01/03/25 07:00 01/07/25 11:17 6 UNITS Dextrose 50 ml UD PRN IV 01/02/25 22:30 Atorvastatin Calcium 10 mg HS PO 01/03/25 22:00 01/06/25 21:12 10 MG Aspirin 81 mg DAILY PO 01/03/25 10:00 01/07/25 09:27 81 MG Ipratropium [place] 0.5 mg Q6HWA NEB 01/03/25 18:00 01/07/25 07:32 0.5 MG Guaifenesin/ Codeine Phosphate 5 ml Q4HPRN PRN PO 01/03/25 14:30 01/06/25 21:29 5 ML Levalbuterol HCl 0.625 mg Q6HWA NEB 01/03/25 18:00 01/07/25 07:32 0.625 MG Ceftriaxone Sodium 50 ml @ 100 mls/hr DAILY@09 IV 01/04/25 09:00 01/07/25 09:27 100 MLS/HR Hydroxychloroquine Sulfate 200 mg BID PO 01/03/25 22:00 01/07/25 09:27 200 MG Pantoprazole Sodium 40 mg DAILY@0600 PO 01/05/25 06:00 01/07/25 06:15 40 MG Acetaminophen/ Hydrocodone Bitart 1 tab Q6HPRN PRN PO 01/04/25 10:15 01/06/25 21:14 1 TAB Acetaminophen 500 mg Q8HP PRN PO 01/04/25 10:15 01/04/25 20:51 500 MG Ondansetron HCl 4 mg Q6HP PRN IV 01/04/25 10:15 01/06/25 21:29 4 MG Hydroxyzine Pamoate 25 mg Q6HP PRN PO 01/05/25 13:30 01/07/25 11:24 25 MG Laboratory Results Laboratory Tests 01/02/25 20:30 01/07/25 08:30 Chemistry Test 01/07/25 05:14 01/07/25 08:30 Calcium Level 9.0 mg/dL (8.7-10.4) 8.7 mg/dL (8.7-10.4) Labs and/or images reviewed: Labs reviewed by me, Image(s) reviewed by me Assessment/Plan Assessment/Plan Impression: -acute on chronic hypoxic respiratory failure -NSTEMI, probably type 2 -pulmonary hypertension -rheumatoid arthritis -rule out bronchial pneumonia Plan: Events: Worsening renal function. Hyperkalemic. Patient currently asymptomatic. -stop Lasix, spironolactone -start sodium bicarbonate infusion -cardiology consultation : Discussed case with Dr. Coley -echocardiogram: Results reviewed -continue bronchodilators -pain management -continue Plaquenil -continue Revatio -continue Rocephin and azithromycin -repeat labs in a.m. Total time spent with patient discussing and formulating plan of care: 35 minutes. This medical document was created using an electronic medical record system with [employer] dictation system. Although this document has been carefully reviewed, there may still be some phonetic and typographical errors. These areas are purely typographical due to imperfections of the software programs, and do not reflect any compromise in the patient's medical care. Plan discussed with: Patient, Other (RN) My Orders Orders - ZI UMAÑA NP Procedure Category Date Status Time Dietary NOTICE 01/07/25 Transmitted Recommendations 08:31 1/2nsw Sodium PHA 01/07/25 Transmitted Bicarbonate Drip 16:00 Date of Service: Jan 07, 2025 Billing Provider: ZI UMAÑA NP Common Visit Codes: [id number] INP/OBS CARE(HIGH) ZI UMAÑA NP Jan 07, 2025 16:04
[2025-01-07] MEDS: SODIUM BICARB 50mEq/50ml Vial 50 ML in SOD CHL 0.45% 1,000 ML IV SCH (16:40)
[2025-01-07] MEDS: PROCHLORPERAZINE EDISYLATE 5 MG/ML 2ML VIAL IV PRN (20:42)
[2025-01-08] VITALS (13 sets, daily range): BP systolic 101–134; BP diastolic 63–86; PULSE 63–81; RESP 17–19; TEMP 97.8–98.4; O2SAT 90–100
--- NOTE | 2025-01-08 09:24 | DVHPN2 ---
Subjective Patient reports respiratory status has improved. Reviewed: Care Plan, H&P, Labs, Medications Changes from previous H/P or p: No Changes General: Per HPI Objective Vitals Vital Signs Date Time Temp Pulse Resp B/P (MAP) Pulse Ox O2 Delivery O2 Flow Rate FiO2 01/08/25 09:00 98.4 65 18 132/77 (95) 93 98.4 01/08/25 05:45 Nasal Cannula* 2 28 Intake/Output Intake and Output 01/08/25 07:00 Intake Total 1040 ml Balance 1040 ml Intake Oral 990 ml IV Total 50 ml # Voids 4 # Bowel Movements 1 General Appearance: Alert, Oriented X3, Cooperative, mild distress HEENT: Atraumatic, PERRLA Lungs: Clear to auscultation, Normal air movement Cardiovascular: Normal S1, Normal S2 Abdomen: Normal bowel sounds, Soft, No tenderness, No hepatospenomegaly Musculoskeletal: Normal sensory function, Normal motor function Neuro: Normal gait, Normal speech Skin: Dry, Intact Psych/Mental Status: Mental status NL, Mood NL Medications Current Medications Medications Dose Ordered Sig/Stephanie Route Start Time Stop Time Status Last Admin Dose Admin Apixaban 2.5 mg BID PO 01/03/25 10:00 01/08/25 08:40 2.5 MG Sildenafil Citrate 20 mg TID@08,14,20 PO 01/03/25 08:00 01/08/25 08:40 20 MG Diagnostic Test (Pha) 1 strip ACHS 01/03/25 07:00 01/08/25 06:41 1 STRIP Insulin Human Regular ACHS SC 01/03/25 07:00 01/07/25 11:17 6 UNITS Dextrose 50 ml UD PRN IV 01/02/25 22:30 Atorvastatin Calcium 10 mg HS PO 01/03/25 22:00 01/07/25 21:03 10 MG Aspirin 81 mg DAILY PO 01/03/25 10:00 01/08/25 08:40 81 MG Ipratropium [place] 0.5 mg Q6HWA NEB 01/03/25 18:00 01/07/25 19:01 0.5 MG Guaifenesin/ Codeine Phosphate 5 ml Q4HPRN PRN PO 01/03/25 14:30 01/07/25 16:47 5 ML Levalbuterol HCl 0.625 mg Q6HWA NEB 01/03/25 18:00 01/07/25 19:01 0.625 MG Ceftriaxone Sodium 50 ml @ 100 mls/hr DAILY@09 IV 01/04/25 09:00 01/08/25 08:40 100 MLS/HR Hydroxychloroquine Sulfate 200 mg BID PO 01/03/25 22:00 01/08/25 08:40 200 MG Pantoprazole Sodium 40 mg DAILY@0600 PO 01/05/25 06:00 01/08/25 05:33 40 MG Acetaminophen/ Hydrocodone Bitart 1 tab Q6HPRN PRN PO 01/04/25 10:15 01/06/25 21:14 1 TAB Acetaminophen 500 mg Q8HP PRN PO 01/04/25 10:15 01/04/25 20:51 500 MG Ondansetron HCl 4 mg Q6HP PRN IV 01/04/25 10:15 01/07/25 16:47 4 MG Hydroxyzine Pamoate 25 mg Q6HP PRN PO 01/05/25 13:30 01/07/25 21:03 25 MG Sodium Bicarbonate 50 ml/ Sodium Chloride 1,050 ml @ 75 mls/hr Q14H IV 01/07/25 16:00 01/08/25 05:33 75 MLS/HR Prochlorperazine Edisylate 10 mg Q6HPRN PRN IV 01/07/25 20:15 01/07/25 20:42 10 MG Laboratory Results Laboratory Tests 01/02/25 20:30 01/07/25 08:30 Labs and/or images reviewed: Labs reviewed by me, Image(s) reviewed by me Assessment/Plan Assessment/Plan Impression: -acute on chronic hypoxic respiratory failure -NSTEMI, probably type 2 -pulmonary hypertension -rheumatoid arthritis -rule out bronchial pneumonia Plan: Events: Pt clinically improving, Am labs pending -start sodium bicarbonate infusion -cardiology consultation : Discussed case with Dr. Coley -echocardiogram: Results reviewed -continue bronchodilators -pain management -continue Plaquenil -continue Revatio -continue Rocephin and azithromycin -repeat labs in a.m. Total time spent with patient discussing and formulating plan of care: 35 minutes. This medical document was created using an electronic medical record system with [employer] system. Although this document has been carefully reviewed, there may still be some phonetic and typographical errors. These areas are purely typographical due to imperfections of the software programs, and do not reflect any compromise in the patient's medical care. Plan discussed with: Patient, Other (RN) My Orders Orders - ZI UMAÑA NP Procedure Category Date Status Time Sod Chl 0.45% PHA 01/07/25 In Process (Sodi... W/Sodium 16:00 Basic Metabolic Panel LAB 01/09/25 Verified 05:00 Basic Metabolic Panel LAB 01/10/25 Verified 05:00 Basic Metabolic Panel LAB 01/11/25 Verified 05:00 Date of Service: Jan 08, 2025 Billing Provider: ZI UMAÑA NP Common Visit Codes: [id number] INP/OBS CARE(HIGH) ZI UMAÑA NP Jan 08, 2025 09:24
[2025-01-08 13:19] LABS: Calcium 8.7 mg/dL (8.7-10.4); Potassium 4.4 mmol/L (3.5-5.1)
[2025-01-08 13:20] LABS: Anion Gap 10 (5-15); Carbon Dioxide 28 mmol/L (20-31)
[2025-01-08 13:25] LABS: BUN/Creatinine Ratio 20.5 (10.0-20.0); Sodium 135 mmol/L (136-145)
[2025-01-08 13:26] LABS: Blood Urea Nitrogen 41 mg/dL (9-23); Chloride 97 mmol/L (98-107); Glucose 108 mg/dL (74-106)
[2025-01-09] VITALS (9 sets, daily range): BP systolic 95–136; BP diastolic 66–85; PULSE 66–79; RESP 16–18; TEMP 36.6; O2SAT 90–95
[2025-01-09 06:27] LABS: Anion Gap 11 (5-15); Carbon Dioxide 24 mmol/L (20-31); Chloride 98 mmol/L (98-107); Potassium 3.9 mmol/L (3.5-5.1)
[2025-01-09 06:33] LABS: BUN/Creatinine Ratio 20.3 (10.0-20.0)
[2025-01-09 06:43] LABS: Blood Urea Nitrogen 28 mg/dL (9-23); Calcium 8.4 mg/dL (8.7-10.4); Glucose 64 mg/dL (74-106); Sodium 133 mmol/L (136-145)
[2025-01-09] MEDS ORDERED: DOXY100C79 PO (11:44)
--- NOTE | 2025-01-09 11:48 | DVHDS2 ---
Discharge Summary Date of Admission Jan 02, 2025 at 22:26 Date of Discharge: Jan 09, 2025 Admitting Diagnosis Acute on chronic respiratory failure Labs/Diagnostic Data: Laboratory Results Test 01/09/25 11:21 01/09/25 04:50 01/03/25 07:41 01/02/25 23:46 POC Glucose 147 mg/dl (70-106) Sodium Level 133 mmol/L (136-145) Potassium Level 3.9 mmol/L (3.5-5.1) Chloride Level 98 mmol/L (98-107) Carbon Dioxide Level 24 mmol/L (20-31) Anion Gap 11 (5-15) Blood Urea Nitrogen 28 mg/dL (9-23) Creatinine 1.38 mg/dL (0.550-1.02) Glomerular Filtration Rate Calc 45 mL/min (>90) BUN/Creatinine Ratio 20.3 (10.0-20.0) Serum Glucose 64 mg/dL (74-106) Calcium Level 8.4 mg/dL (8.7-10.4) Erythrocyte Sedimentation Rate 15 mm/hr (0-20) C-Reactive Protein High Sensitivity 1.39 mg/dL (<1.0) Lipase 26 U/L (12-53) Thyroid Stimulating Hormone (TSH) 2.21 uIU/mL (0.55-4.78) Troponin I High Sensitivity 165 ng/L (</=34) Test 01/02/25 20:30 White Blood Count 5.9 10^3/uL (4.4-10.8) Red Blood Count 5.13 10^6/uL (4.0-5.20) Hemoglobin 16.5 g/dL (12.2-16.2) Hematocrit 50.5 % (36.0-46.0) Mean Corpuscular Volume 98.5 fL (80.0-100.0) Mean Corpuscular Hemoglobin 32.1 pg (28.0-32.0) Mean Corpuscular Hemoglobin Concent 32.6 g/dL (32.0-36.0) Red Cell Distribution Width 14.4 % (11.8-14.3) Platelet Count 214 10^3/uL (140-450) Mean Platelet Volume 8.2 fL (6.9-10.8) Neutrophils (%) (Auto) 67.4 % (37.0-80.0) Lymphocytes (%) (Auto) 21.3 % (10.0-50.0) Monocytes (%) (Auto) 9.6 % (0.0-12.0) Eosinophils (%) (Auto) 1.4 % (0.0-7.0) Basophils (%) (Auto) 0.3 % (0.0-2.0) Neutrophils # (Auto) 4.0 10 ^3/uL (1.6-8.6) Lymphocytes # (Auto) 1.3 10 ^3/uL (0.4-5.4) Monocytes # (Auto) 0.6 10 ^3/uL (0-1.3) Eosinophils # (Auto) 0.1 10 ^3/uL (0-0.8) Basophils # (Auto) 0 10 ^3/uL (0-0.2) Nucleated Red Blood Cells 0.3 % D-Dimer, Quantitative 0.60 mg/L FEU (0.0-0.49) Total Bilirubin 1.4 mg/dL (0.2-1.0) Aspartate Amino Transferase (AST) 32 U/L (13-40) Alanine Aminotransferase (ALT) 15 U/L (7-40) Alkaline Phosphatase 47 U/L (46-116) B-Type Natriuretic Peptide 683.76 pg/mL (0-100) Total Protein 7.1 g/dL (5.7-8.2) Albumin 4.0 g/dL (3.2-4.8) Other Laboratory Tests 01/09/25 04:50 01/02/25 20:30 Brief Hx & Hospital Course: History of Present Illness 50-year-old female presents for evaluation of shortness for breath. Patient reports a history of heart failure with pulmonary hypertension. She states having shortness for breath over the past two weeks and worsening over the past couple of days. Reports some chest tightness. No cough or fever. No other acute complaints reported. Course of hospitalization: Patient does report having cough with sputum production on re-evaluation. Patient also reports having worsening generalized weakness that she does not attribute to her heart failure pulmonary hypertension. Patient was started on empiric antibiotic therapy, reinstitution of Revatio, as well as having IV diuresis. Cardiology consultation was obtained. Echocardiogram was performed which was evaluated by Dr. Dickerson. Patient did have worsening renal function, which resolved after cessation of diuresis as well as mild IVF replete. Patient states that her symptoms have not improved. 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 Given patient had echocardiogram on this admission, further recommendations for PH treatment can be made as an outpatient. She will be provided antibiotic therapy in the form of doxycycline 100 mg p.o. b.i.d. for the next seven days. She is agreeable with discharge plan. All questions answered. Physical examination General: Alert and Oriented x3. No acute distress. Well-nourished. Eyes: EOMI. Anicteric. HENT: Moist mucous membranes. Lungs: Clear to auscultation bilaterally. No accessory muscle use. Cardiovascular: Regular rate and rhythm. No murmur. No JVD. Abdomen: Soft, non-tender and non-distended. No palpable masses. Extremities: No edema. Non-tender. Skin: No rashes or lesions. Warm. Neurologic: No focal neurological deficits. CN II-XII grossly intact, but not individually tested. Psychiatric: Cooperative. Appropriate mood and affect. Total time spent with patient discussing and formulating plan of care: 35 minutes. This medical document was created using an electronic medical record system with [employer] computerized dictation system. Although this document has been carefully reviewed, there may still be some phonetic and typographical errors. These areas are purely typographical due to imperfections of the software programs, and do not reflect any compromise in the patient's medical care. Consults/Reason for consult Cardiology: decompensated heart failure Condition at Discharge: Guarded Final Diagnosis/Problems List Acute on chronic hypoxic respiratory failure -acute on chronic hypoxic respiratory failure -NSTEMI, probably type 2 -pulmonary hypertension -rheumatoid arthritis -bronchial pneumonia often probable Gram-positive/Gram-negative etiology -acute kidney injury, vasomotor nephropathy -hyperkalemia Discharge Disposition: Home Discharge Instruct/Medications Diet: Cardiac 2g Na,low cholest Activity: No Restrictions, As Tolerated Follow Up/Referral: Follow up with PCP, alteration worker within 1-2 weeks Medications: Doxycycline 100 mg p.o. b.i.d. x7 days Scheduled Albuterol Sulfate (Albuterol Sulfate Hfa), 2 PUFF INH Q4HR PRN, (Reported) Apixaban Base (Eliquis), 1 TAB PO BID, (Reported) Apixaban Base (Eliquis), 2.5 MG PO BID Budesonide-Formoterol Fumarate (Budesonide/Formoterol Fum 160-4.5 Mcg/Act), 1 AER IN UD, (Reported) Digoxin (Digoxin), 1 TAB PO DAILY, (Reported) Digoxin (Lanoxin), 0.125 MG PO DAILY Doxycycline (Monohydrate) (Doxycycline), 100 MG PO BID Fluticasone-Salmeterol (Advair Diskus 100-50 Mcg/Dose), 1 PUFF INH BID, (Reported) Furosemide (Lasix), 40 MG PO DAILY Guaifenesin-Codeine (Robitussin/Codeine), 5 ML PO Q6HR, (Reported) Hydroxychloroquine Sulfate (Hydroxychloroquine Sulfat), 1 TAB PO DAILY, (Reported) Metformin Hydrochloride (Metformin Hydrochloride), 1 TAB PO BID, (Reported) Sildenafil Citrate (Revatio), 20 MG PO TID@08,14,20 Sildenafil Citrate (Revatio), 20 MG PO TID@08,14,20 Spironolactone (Spironolactone), 1 TAB PO BID, (Reported) Spironolactone (Aldactone), 25 MG PO BID Trazodone Hcl (Trazodone Hcl), 1 TAB PO DAILY, (Reported) Trazodone Hcl (Trazodone Hcl), 50 MG PO HS 36 Discharge Statement: "Patient was advised to return to the ER or call 911 if any headaches, dizziness, shortness of breath, chest pain, abdominal pain, bleeding, fevers, or worsening of medical condition. Patient was counseled about treatment plan, medications, possible side effects, patientverbalized understanding. All questions were answered to the best of my ability. This discharge took greater then 30 minutes in planning, reviewing documentation, counseling the patient, and discussing with other team members." ASSESSMENT ASSESSMENT Assessment Acute on chronic hypoxic respiratory failure Date of Service: Jan 09, 2025 Billing Provider: ZI UMAÑA NP Common Visit Codes: [id number] DISCH DAY >30min ZI UMAÑA NP Jan 09, 2025 11:48
== END 2025-01-09 13:40 | disposition home or self-care (01) | DRG 194 ==
LOC: ER 20:04 → OVERFLOW 22:26 → EAST 01-03 21:48 → TELE-EAST 01-06 23:00
PROVIDERS: ADMIT Nurse Practitioner Acute Care; ATTEND Nurse Practitioner Acute Care
DX: I11.0 Hypertensive heart disease with heart failure (principal); N17.0 Acute kidney failure with tubular necrosis; J15.69 Pneumonia due to other Gram-negative bacteria; J96.21 Acute and chronic respiratory failure with hypoxia; I27.29 Other secondary pulmonary hypertension; I21.A1 Myocardial infarction type 2; I48.91 Unspecified atrial fibrillation; I50.33 Acute on chronic diastolic (congestive) heart failure; J15.9 Unspecified bacterial pneumonia; E11.9 Type 2 diabetes mellitus without complications; E87.5 Hyperkalemia; M06.80 Other specified rheumatoid arthritis, unspecified site; E78.5 Hyperlipidemia, unspecified; I50.82 Biventricular heart failure; J45.909 Unspecified asthma, uncomplicated; Z99.81 Dependence on supplemental oxygen; Z88.8 Allergy status to other drugs, medicaments and biological substances
CPT/HCPCS: 36415; 71045; 80048; 80053; 82962; 83690; 83880; 84443; 84484; 85025; 85379; 85652; 86141; 93005; 93306; 94640; G0378; J1815; J2405